=== PATIENT | female | born 1935 | race Caucasian/White ===

== ENCOUNTER 2019-03-30 10:25 | Outpatient (CLI) | payer MEDICARE, SELFPAY ==
--- NOTE | ~2019-03-30 | XR_ITS ---
EXAMINATION:[id number] DATE: 03/30/2019 11:08 INDICATION: Neck pain TECHNIQUE: AP, lateral, and odontoid views of the cervical spine are provided. COMPARISON: CT, 02/13/2018 FINDINGS: There are 2 mm of unchanged anterolisthesis of C4 on C5 and C7 on T1. There are 3 mm of sta ble retrolisthesis of C5 on C6. There is severe loss of intervertebral disc space height at C5-6 and C6-7. No fracture is identified. The odontoid appears intact with chronic erosions identified in the dens. The vertebral body heights are normal. 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 The prevertebral soft tissues are normal. IMPRESSION: 1. Severe cervical spondylosis without acute findings or significant interval change. Reviewed, dictated and finalized at location A. [employer] IMPRESSION: 1. Severe cervical spondylosis without acute findings or significant interval christopher valero
== END 2019-03-30 10:26 | disposition home or self-care (01) ==
DX: M54.2 Cervicalgia (principal)
CPT/HCPCS: 72040

== ENCOUNTER 2019-07-26 15:33 | Outpatient (CLI) | payer MEDICARE, SELFPAY ==
[2019-07-26 16:33] LABS: Basophils Absolute Auto 0.03 K/mm3 (0.00-0.10); Basophils Percent Auto 0.3 % (0.0-1.0); Eosinophils Absolute Auto 0.06 K/mm3 (0.02-0.50); Eosinophils Percent Auto 0.6 % (1.0-6.0); Hematocrit 33.8 % (35.0-42.0); Hemoglobin 11.7 g/dL (11.7-13.8); Immature Granulocyte Absolute 0.04 K/mm3 (0.00-0.00); Immature Granulocyte Percent A 0.4 % (0.0-0.0); Lymphocytes Absolute Auto 1.74 K/mm3 (1.10-4.50); Lymphocytes Percent Auto 18.3 % (18.0-42.0); Mean Corpuscular HGB Conc 34.6 g/dL (32.0-36.0); Mean Corpuscular Hemoglobin 31.9 pg (27.0-31.0); Mean Corpuscular Volume 92.1 fL (78.0-102.0); Mean Platelet Volume 9.2 fl (9.2-11.8); Monocytes Absolute Auto 0.85 K/mm3 (0.10-0.90); Monocytes Percent Auto 8.9 % (2.0-11.0); Neutrophils Absolute Auto 6.8 K/mm3 (1.7-7.2); Neutrophils Percent Auto 71.5 % (50.0-70.0); Platelet Count Result 257 K/mm3 (150-420); Red Blood Count 3.67 M/mm3 (4.20-5.40); Red Cell Distribution Width 12.7 % (11.6-14.4); Reticulocyte Hemoglobin Conten 36.6 pg (28.0-35.0); Reticulocyte Percent 2.17 % (0.50-1.50); Reticulocytes Absolute 0.08 M/mm3 (0.02-0.1); White Blood Count 9.5 K/mm3 (4.8-10.8)
[2019-07-26 17:03] LABS: Ferritin 81 ng/mL (8-252); Iron 86 ug/dL (50-170); Percent Iron Saturation 24 % (12-57)
[2019-07-26 17:31] LABS: Erythrocyte Sedimentation Rate 14 mm/hr (0-20)
[2019-07-26 17:33] LABS: CRP < 0.2 mg/dL (0.0-0.9)
[2019-07-26 17:39] LABS: Hemoglobin A1C 6.4 % (<5.7)
[2019-07-28 17:32] LABS: Red Blood Cell Folate 852 ng/mL RBC (>280)
[2019-07-28 22:34] LABS: Albumin 3.9 g/dL (3.8-4.8); Alpha 1 Globulin 0.2 g/dL (0.2-0.3); Alpha 2 Globulin 0.7 g/dL (0.5-0.9); Beta 1 Globulin 0.4 g/dL (0.4-0.6); Gamma Globulin 0.6 g/dL (0.8-1.7); Interpretation Consistent with; Protein, Total 6.2 g/dL (6.1-8.1)
[2019-08-01 21:16] LABS: Creatinine, Random Urine 75 mg/dL (20-275); Total Protein/Creatinine Ratio 227 mg/g creat (21-161)
== END 2019-07-26 15:34 | disposition home or self-care (01) ==
LOC: CHSLAB 15:35
PROVIDERS: PCP Internal Medicine; Visit Provider Internal Medicine
DX: D64.9 Anemia, unspecified (principal); R73.01 Impaired fasting glucose; N18.2 Chronic kidney disease, stage 2 (mild); R53.83 Other fatigue
CPT/HCPCS: 36415; 82570; 82728; 82747; 83036; 83540; 83550; 84155; 84156; 84165; 84166; 85025; 85046; 85652; 86038; 86039; 86140; 86334

== ENCOUNTER 2019-09-16 13:06 | Outpatient (CLI) | payer MEDICARE, SELFPAY | END 2019-09-16 13:07 | disposition home or self-care (01) | LOC: CHSIMG 13:08 | PROVIDERS: PCP Internal Medicine; Visit Provider Specialist | DX: R06.02 Shortness of breath (principal) | CPT/HCPCS: 93306 ==

== ENCOUNTER 2019-09-20 07:32 | Outpatient (CLI) | payer MEDICARE, SELFPAY ==
--- NOTE | 2019-09-20 09:30 | EST_ITS ---
Patient Info Name: Nelly Elliott Age: 84 years : 1935 Gender: Female Ht: 60 in Wt: 159 lbs BSA: 1.78 m2 HR: 52 bpm BP: 154 / 62 mmHg Heart Rhythm: Sinus Rhythm Technical Quality: Excellent Exam Date: 09/20/2019 9:41 AM Exam Location: [facility], [place] Patient Status: Outpatient Admit Date: 09/20/2019 Staff Ordering Physician: Josesito Chacon M.D. Attending Provider: Josesito Chacon M.D. Referring Physician: Josesito Chacon MD; Exercise Technologist: Britta Treadwell CRT Exercise Physician: Palma Desir CEP Exam Type: CA stress serge w NM Study Info Indications Dyspnea - A nuclear stress test was performed. History/Risk Factors Hypertension: Yes Dyslipidemia: Yes Congenital Heart Disease (CHD): No Peripheral Arterial Disease (PAD): No Myocardial Infarction ([place]): No Chronic Lung Disease: No Obesity: No Renal Disease: No Coronary Artery Disease (CAD) No Congestive Heart Failure (CHF): No Cardiomyopathy/LV Systolic Dysfunction: No Diabetes Mellitus: No COPD: No Tobacco Use: Never Cerebrovascular Disease: No Family History: Diabetes Mellitus, Coronary Artery Disease Deep Vein Thrombosis (DVT): None Dialysis: None History/Risk Factors Hypertension. Dyslipidemia. Syncope. Frailty Scale (CSHA): 3: Managing Well Cardiac Arrest: No Summary 1. 1. Negative lexiscan stress test for ischemic ST changes by ECG criteria. 2. 2. Baseline hypertension. 3. 3. Nuclear scan to follow and will be reported separately. Please correlate with it. Protocol: LEXISCAN Stress ECG Details Stage: REST Duration (min): 1 min : 14 sec HR (bpm): 50 SBP (mmHg): 154 DBP (mmHg): 62 Stage: REST Duration (min): 2 min : 46 sec HR (bpm): 54 SBP (mmHg): 154 DBP (mmHg): 62 Stage: STAGE 1 Duration (min): 0 min : 12 sec HR (bpm): 54 SBP (mmHg): 154 DBP (mmHg): 62 Stage: RECOVERY Duration (min): 0 min : 47 sec HR (bpm): 82 SBP (mmHg): 154 DBP (mmHg): 62 Stage: RECOVERY Duration (min): 1 min : 47 sec HR (bpm): 83 SBP (mmHg): 154 DBP (mmHg): 62 Stage: RECOVERY Duration (min): 2 min : 47 sec HR (bpm): 77 SBP (mmHg): 164 DBP (mmHg): 63 Stage: RECOVERY Duration (min): 3 min : 47 sec HR (bpm): 78 SBP (mmHg): 164 DBP (mmHg): 65 Stage: RECOVERY Duration (min): 4 min : 47 sec HR (bpm): 75 SBP (mmHg): 164 DBP (mmHg): 65 Stage: RECOVERY Duration (min): 5 min : 47 sec HR (bpm): 80 SBP (mmHg): 165 DBP (mmHg): 68 Stage: RECOVERY Duration (min): 6 min : 0 sec HR (bpm): 84 SBP (mmHg): 165 DBP (mmHg): 68 Rest HR: 54 bpm Peak HR: 88 bpm Rest Sys BP: 154 mmHg Peak Sys BP: 166 mmHg Max Pred HR: 138 bpm % Max Pred HR: 64 % Target HR: 117 bpm Max RPP: 14,608 bpm*mmHg Termination Reason: Completion of Protocol Cardiac Symptoms: Dyspnea Total Time: 0 min : 12 sec Rest Pérez BP: 62 mmHg
== END 2019-09-20 07:33 | disposition home or self-care (01) ==
PROVIDERS: PCP Internal Medicine; Visit Provider Specialist
DX: R06.02 Shortness of breath (principal)
CPT/HCPCS: 78452; 93017; A9502; J2785

== ENCOUNTER 2019-10-05 09:20 | Outpatient (CLI) | payer MEDICARE, SELFPAY ==
[2019-10-05 09:30] LABS: Base Excess ABG -3.6 mmol/L (0-2); HCO3 ABG 20.2 mmol/L (23-29); Oxygen Saturation ABG 96.8 % (95-97); Oxyhemoglobin 96.2 % (94-100); PCO2 ABG 32.8 mmHg (35-45); PO2 ABG 87.8 mmHg (75-85); Total Hemoglobin 12.5 g/dL; pH ABG 7.41 (7.35-7.45)
[2019-10-05 09:32] LABS: Device ROOM AIR; Modified Allen's Test Pass; Site Drawn RIGHT RADIAL
== END 2019-10-05 09:21 | disposition home or self-care (01) ==
LOC: CHSLAB 09:21
PROVIDERS: PCP Internal Medicine; Visit Provider Specialist
DX: R06.00 Dyspnea, unspecified (principal)
CPT/HCPCS: 36600; 82805

== ENCOUNTER 2019-10-06 08:37 | Outpatient (CLI) | payer MEDICARE, SELFPAY ==
--- NOTE | 2019-10-07 09:37 | WPDPFTINT ---
PFT Interpretation PFT Interpretation: DOS: [10/06/2019 ] REQUESTING: Dr. Chacon/ Dr. Cazares REASON FOR TESTING: dyspnea PULMONARY FUNCTION TESTS Spirometry: FEV1 101% normal. FVC normal. FEV1% is normal. No change with bronchodilator. Lung volumes: TLC 96% normal. RV 95% normal. No air trapping. Airway resistance is increased 384%. Diffusion: DLCO mildly decreased 70%. Flow volume loop: normal IMPRESSION: Normal spirometry and lung volumes with mild decrease in diffusion which appears to be the only abnormality. There is no change with bronchodilator. Isolated decreased diffusion can be seen in anemia, early ILD, collagen vascular disease with pulmonary vascular involvement, chronic thromboembolic disease and other conditions. Clinical correlation is recommended. Mercy Benton MD
== END 2019-10-06 08:38 | disposition home or self-care (01) ==
LOC: CHSCARD 08:40
PROVIDERS: PCP Internal Medicine; Visit Provider Specialist
DX: R06.00 Dyspnea, unspecified (principal)
CPT/HCPCS: 94060; 94726; 94729

== ENCOUNTER 2019-11-18 09:59 | Outpatient (CLI) | payer MEDICARE, SELFPAY ==
[2019-11-18 10:16] LABS: Basophils Absolute Auto 0.04 K/mm3 (0.00-0.10); Basophils Percent Auto 0.7 % (0.0-1.0); Eosinophils Absolute Auto 0.13 K/mm3 (0.02-0.50); Eosinophils Percent Auto 2.2 % (1.0-6.0); Hematocrit 35.4 % (35.0-42.0); Hemoglobin 11.6 g/dL (11.7-13.8); Immature Granulocyte Absolute 0.03 K/mm3 (0.00-0.00); Immature Granulocyte Percent A 0.5 % (0.0-0.0); Lymphocytes Absolute Auto 1.38 K/mm3 (1.10-4.50); Lymphocytes Percent Auto 23.4 % (18.0-42.0); Mean Corpuscular HGB Conc 32.8 g/dL (32.0-36.0); Mean Corpuscular Hemoglobin 31.5 pg (27.0-31.0); Mean Corpuscular Volume 96.2 fL (78.0-102.0); Mean Platelet Volume 8.7 fl (9.2-11.8); Monocytes Absolute Auto 0.62 K/mm3 (0.10-0.90); Monocytes Percent Auto 10.5 % (2.0-11.0); Neutrophils Absolute Auto 3.7 K/mm3 (1.7-7.2); Neutrophils Percent Auto 62.7 % (50.0-70.0); Platelet Count Result 239 K/mm3 (150-420); Red Blood Count 3.68 M/mm3 (4.20-5.40); Red Cell Distribution Width 13.1 % (11.6-14.4); White Blood Count 5.9 K/mm3 (4.8-10.8)
[2019-11-18 10:26] LABS: Hemoglobin A1C 6.1 % (<5.7)
[2019-11-18 10:54] LABS: Anion Gap 10 mmol/L (8-16); Blood Urea Nitrogen 16 mg/dL (7-18); Calcium 9.5 mg/dL (8.5-10.1); Carbon Dioxide 26 mmol/L (21-32); Chloride 105 mmol/L (98-108); Estimated Glomerular Filt Rate 43; Glucose 117 mg/dL (70-99); Osmolality Calculated 294 mOsm/kg (285-295); Potassium 4.8 mmol/L (3.5-5.1); Sodium 141 mmol/L (136-145)
[2019-11-18 12:31] LABS: Add Urine Microscopic? YES; Appearance Urine Sl Cloudy (Clear); Bilirubin Urine Negative (Negative); Blood Urine Negative (Negative); Color Urine Yellow (Yellow); Glucose Urine UA Negative (Negative); Ketones Urine Negative (Negative); Leukocyte Esterase Ur 1+ (Negative); Nitrate Urine Positive (Negative); Protein Urine Negative (Negative); Urobilinogen Urine 0.2 mg/dL (0.2-1.0)
[2019-11-18 12:37] LABS: RBC Urine 0-2 /hpf (0-2); WBC Urine 21-30 /hpf (0-3)
[2019-11-18 12:38] LABS: Bacteria Urine 1+ /hpf; Squamous Epithelial Cell Urine Few /hpf (Few)
== END 2019-11-18 10:00 | disposition home or self-care (01) ==
LOC: CHSLAB 10:01
PROVIDERS: PCP Internal Medicine; Visit Provider Internal Medicine
DX: R73.01 Impaired fasting glucose (principal); I12.9 Hypertensive chronic kidney disease with stage 1 through stage 4 chronic kidney disease, or unspecified chronic kidney disease; N18.2 Chronic kidney disease, stage 2 (mild); D64.9 Anemia, unspecified
CPT/HCPCS: 36415; 80048; 81001; 83036; 85025

== ENCOUNTER 2019-12-01 13:33 | Outpatient (CLI) | payer MEDICARE, SELFPAY ==
[2019-12-01 14:40] LABS: Vitamin B12 1707 pg/mL (193-986)
[2019-12-01 16:27] LABS: Add Urine Microscopic? YES; Appearance Urine Sl Cloudy (Clear); Bilirubin Urine Negative (Negative); Blood Urine Negative (Negative); Color Urine Yellow (Yellow); Glucose Urine UA Negative (Negative); Ketones Urine Trace (Negative); Leukocyte Esterase Ur 2+ (Negative); Nitrate Urine Negative (Negative); Protein Urine Negative (Negative); Specific Grav Ur 1.025 (1.010-1.020); Urobilinogen Urine 0.2 mg/dL (0.2-1.0)
[2019-12-01 16:33] LABS: Bacteria Urine 1+ /hpf; RBC Urine None seen /hpf (0-2); Squamous Epithelial Cell Urine Few /hpf (Few)
== END 2019-12-01 13:34 | disposition home or self-care (01) ==
LOC: CHSLAB 13:35
PROVIDERS: PCP Internal Medicine; Visit Provider Internal Medicine
DX: N39.0 Urinary tract infection, site not specified (principal); R41.3 Other amnesia
CPT/HCPCS: 36415; 81001; 82607; 87086; 87088; 87147; 87186

== ENCOUNTER 2019-12-09 14:48 | Outpatient (RCR) | payer MEDICARE, SELFPAY ==
--- NOTE | 2019-12-09 15:45 | PTOPEVAL ---
Thank you for referring Nelly Elliott to [facility].? The patient is scheduled to be seen for therapy? __2__x/week for 12 visits. Please review, sign, date and return this plan of care TELMA. I agree with and certify that the following plan of care is medically necessary. Referring Physician Date Admitting Provider: Attending Provider: Clarice Cazares MD Referring Provider: *PT Outpatient Evaluation Start: 12/09/19 15:06 Freq: Status: Active Protocol: Document 12/09/19 15:07 ROSI (Rec: 12/09/19 15:40 ROSI [email or web address]) Therapy Assessment Status Assessment Status Assessment Status Evaluation Evaluation Information Problem Diagnosis chronic neck pain Onset 03/20/19 Subjective Information Pt. reports that she has had Query Text:As Reported By Patient/ on/off neck pain since [facility] . She reports that all pain is located on the right side of the neck and shoot into the back of her head. She reports that pain is increased in the neck with any type of activity. She states that her sleep is limited due to pain. She states that that a full day of activity including housework and go into the community will cause her pain to increase and put her down for awhile. She reports her goal is to decrease her pain. Diagnostic Tests X-Rays For This Problem Yes Prior Level of Function Activity Level (Last 3 Months) Occupation retired Hand Dominance Right Activity of Daily Living Ability Independent Indoor/Home Mobility Independent Community Mobility Independent Stairs Ability Independent Functional Cognition (Planning, Shopping Independent , Taking Medications) Cooking Yes Cleaning Yes Laundry Yes Shopping Yes Driving Yes Pain Assessment Pain Scale Pain Scale Used Numeric (1 - 10) Self Report Pain Assessment Neck Reported Pain Level 7 Pain Frequency Chronic Lowest Pain Intensity 7 Greatest Pain Intensity 10 Pain Aggravating Factors Exercise/Activity,Lifting, Prolonged Position Pain Score Pain Score 7: Self Report Interve
== END 2019-12-29 09:25 | disposition home or self-care (01) ==
LOC: CHSPT 14:48
PROVIDERS: PCP Internal Medicine; Visit Provider Internal Medicine
DX: M54.2 Cervicalgia (principal)
CPT/HCPCS: 97014; 97110; 97140; 97161; G0283

== ENCOUNTER 2020-05-15 16:05 | Outpatient (CLI) | payer MEDICARE, SELFPAY ==
--- NOTE | ~2020-05-15 | CT_ITS ---
EXAMINATION: CTA chest PE protocol DATE: 05/15/2020 18:20 INDICATION: Shortness of breath. TECHNIQUE: Computed tomography angiography (CTA) of the chest was performed with 100 mL Omnipaque-350 intravenous contrast timed to evaluate the pulmonary arteries. Coronal maximum intensity projection 3D-reconstructions were created by the technologist. Automated exposure control and iterative reconst ruction technique were employed. The dose-length product was 573.72 mGy-cm. COMPARISON: None. FINDINGS: The lung volumes are small. There is mild atelectasis bilaterally with a dependent predomin ance. No pleural effusion. The heart size is normal. There are coronary artery calcifications. No per icardial effusion. There is no pulmonary embolus. There is thoracolumbar levoscoliosis. There is juan david re cervical, thoracic, and lumbar spondylosis. IMPRESSION: 1. No pulmonary embolus. Sensitivity is mildly decreased by motion artifact. Reviewed, dictated and finalized at location A.
--- NOTE | ~2020-05-15 | XR_ITS ---
EXAMINATION: XR_CERV2-3V_CR DATE: 05/15/2020 16:52 INDICATION: Chronic posterior neck pain. TECHNIQUE: 3 views of cervical spine on 5 radiographs were obtained. COMPARISON: Cervical spine radiographs 03/30/2019 FINDINGS: There is 2 mm retrolisthesis of C5 on C6 and C6 on C7. Vertebral body heights are normal. T here is mildly decreased disc height at C4-C5 and severely decreased disc height at C5-C6 and C6-C7. There is multilevel severe facet joint osteoarthritis. There is mild central canal stenosis at C5-C6 and C6-C7. No prevertebral soft tissue swelling. IMPRESSION: 1. Severe cervical spondylosis. Reviewed, dictated and finalized at location A.
[2020-05-15 16:30] LABS: Basophils Absolute Auto 0.02 K/mm3 (0.00-0.10); Basophils Percent Auto 0.3 % (0.0-1.0); Eosinophils Absolute Auto 0.07 K/mm3 (0.02-0.50); Hemoglobin 12.1 g/dL (11.7-13.8); Immature Granulocyte Absolute 0.03 K/mm3 (0.00-0.00); Immature Granulocyte Percent A 0.4 % (0.0-0.0); Immature Reticulocyte Fraction 8.9 % (2.0-16.52); Lymphocytes Absolute Auto 1.39 K/mm3 (1.10-4.50); Lymphocytes Percent Auto 19.3 % (18.0-42.0); Mean Corpuscular HGB Conc 33.6 g/dL (32.0-36.0); Mean Corpuscular Hemoglobin 31.8 pg (27.0-31.0); Mean Corpuscular Volume 94.5 fL (78.0-102.0); Mean Platelet Volume 8.8 fl (9.2-11.8); Monocytes Percent Auto 8.3 % (2.0-11.0); Neutrophils Absolute Auto 5.1 K/mm3 (1.7-7.2); Neutrophils Percent Auto 70.7 % (50.0-70.0); Platelet Count Result 266 K/mm3 (150-420); Red Blood Count 3.81 M/mm3 (4.20-5.40); Red Cell Distribution Width 12.8 % (11.6-14.4); Reticulocyte Hemoglobin Conten 35.9 pg (28.0-35.0); Reticulocyte Percent 2.17 % (0.50-1.50); Reticulocytes Absolute 0.08 M/mm3 (0.02-0.1); White Blood Count 7.2 K/mm3 (4.8-10.8)
[2020-05-15 16:33] LABS: Add Urine Microscopic? YES; Appearance Urine Clear (Clear); Bilirubin Urine Negative (Negative); Blood Urine Negative (Negative); Color Urine Yellow (Yellow); Glucose Urine UA Negative (Negative); Ketones Urine Negative (Negative); Leukocyte Esterase Ur 1+ (Negative); Nitrate Urine Negative (Negative); Protein Urine Negative (Negative); Urobilinogen Urine 0.2 mg/dL (0.2-1.0); pH Urine 5.5 (5.0-8.0)
[2020-05-15 16:39] LABS: Bacteria Urine Trace /hpf; Hemoglobin A1C 6.4 % (<5.7); RBC Urine 0-2 /hpf (0-2); Squamous Epithelial Cell Urine Few /hpf (Few)
[2020-05-15 16:45] LABS: D Dimer 0.62 mg/L (0.19-0.50)
[2020-05-15 16:46] LABS: BNP 50 pg/mL (0-100)
[2020-05-15 17:31] LABS: Erythrocyte Sedimentation Rate 28 mm/hr (0-20)
[2020-05-15 17:56] LABS: Alanine Aminotransferase 35 U/L (14-59); Albumin Level 3.9 g/dL (3.4-5.0); Alkaline Phosphatase 96 U/L (46-116); Anion Gap 11 mmol/L (8-16); Bilirubin,Total 0.5 mg/dL (0.00-1.00); Blood Urea Nitrogen 21 mg/dL (7-18); Calcium 9.2 mg/dL (8.5-10.1); Carbon Dioxide 25 mmol/L (21-32); Chloride 101 mmol/L (98-108); Cholesterol 194 mg/dL (0-200); Creatine Kinase 50 U/L (26-192); Estimated Glomerular Filt Rate 41; HDL Direct 47 mg/dL (40-60); Potassium 4.2 mmol/L (3.5-5.1); Sodium 137 mmol/L (136-145); Total Protein 6.9 g/dL (6.4-8.2); Vitamin B12 1674 pg/mL (193-986)
[2020-05-15 18:22] LABS: Free T3 2.24 pg/mL (2.18-3.98); Free T4 Free Thyroxine 1.02 ng/dL (0.76-1.46); Glucose 182 mg/dL (70-99); Osmolality Calculated 292 mOsm/kg (285-295)
[2020-05-15 18:46] LABS: Aspartate Amino Transferase < 10 U/L (15-37)
[2020-05-15 19:00] LABS: CRP < 0.2 mg/dL (0.0-0.9)
[2020-05-15 19:01] LABS: LDL Cholesterol Calculated 33 mg/dL (<130); Triglycerides 568 mg/dL (0-150)
[2020-05-15 19:04] LABS: LDL Cholesterol Direct 91 mg/dL (0-130)
[2020-05-18 10:39] LABS: Vitamin D 25 Hydroxy 32 ng/mL (30-100)
== END 2020-05-15 16:06 | disposition home or self-care (01) ==
PROVIDERS: PCP Internal Medicine; Visit Provider Internal Medicine
DX: R06.00 Dyspnea, unspecified (principal); R79.1 Abnormal coagulation profile; E78.2 Mixed hyperlipidemia; I12.9 Hypertensive chronic kidney disease with stage 1 through stage 4 chronic kidney disease, or unspecified chronic kidney disease; N18.2 Chronic kidney disease, stage 2 (mild); D64.9 Anemia, unspecified; R73.01 Impaired fasting glucose; R53.82 Chronic fatigue, unspecified; M81.0 Age-related osteoporosis without current pathological fracture; M54.2 Cervicalgia
CPT/HCPCS: 36415; 71275; 72040; 80053; 80061; 81001; 82306; 82550; 82607; 83036; 83721; 83880; 84439; 84443; 84481; 85025; 85046; 85380; 85652; 86140; Q9967

== ENCOUNTER 2020-05-23 13:36 | Outpatient (CLI) | payer MEDICARE, SELFPAY ==
[2020-05-23 15:09] LABS: Anion Gap 9 mmol/L (8-16); Blood Urea Nitrogen 22 mg/dL (7-18); Calcium 9.5 mg/dL (8.5-10.1); Carbon Dioxide 27 mmol/L (21-32); Chloride 100 mmol/L (98-108); Estimated Glomerular Filt Rate 37; Glucose 153 mg/dL (70-99); Osmolality Calculated 288 mOsm/kg (285-295); Potassium 4.1 mmol/L (3.5-5.1); Sodium 136 mmol/L (136-145)
== END 2020-05-23 13:37 | disposition home or self-care (01) ==
LOC: CHSLAB 13:39
PROVIDERS: PCP Internal Medicine; Visit Provider Internal Medicine
DX: R79.89 Other specified abnormal findings of blood chemistry (principal)
CPT/HCPCS: 36415; 80048

== ENCOUNTER 2020-06-02 12:57 | Emergency (ER) | payer MEDICARE, SELFPAY ==
--- NOTE | ~2020-06-02 | XR_ITS ---
EXAMINATION: XR humerus RT DATE: 06/02/2020 13:54 INDICATION: Right upper arm pain. Injury. TECHNIQUE: 2 views of right humerus were obtained. COMPARISON: None. FINDINGS: Bone alignment is normal. No fracture. There is mild osteoarthritis of glenohumeral joint a nd moderate osteoarthritis of acromioclavicular joint. IMPRESSION: 1. Polyarticular osteoarthritis. Reviewed, dictated and finalized at location A.
--- NOTE | ~2020-06-02 | XR_ITS ---
EXAMINATION: XR shoulder RT min 2V DATE: 06/02/2020 13:54 INDICATION: Right shoulder pain. TECHNIQUE: 4 views of right shoulder were obtained. COMPARISON: None. FINDINGS: Bone alignment is normal. No fracture. There is mild osteoarthritis of glenohumeral joint a nd moderate osteoarthritis of acromioclavicular joint. IMPRESSION: 1. Polyarticular osteoarthritis. Reviewed, dictated and finalized at location A.
--- NOTE | ~2020-06-02 | XR_ITS ---
EXAMINATION: XR elbow RT 2V EXAM DATE: 06/02/2020 13:53 INDICATION: Fall today, right elbow pain. Initial encounter. TECHNIQUE: Frontal and lateral projections of the right elbow. Correlation is made to right humerus exam same date. FINDINGS: There are no acute right elbow fractures or dislocations identified. There is no subcutane ous gas. The soft tissue is unremarkable. There are no radiopaque foreign bodies. There is mild p rimary osteoarthritis. IMPRESSION: 1. XR elbow RT 2V exam without acute osseous findings. Reviewed, dictated and finalized at location A.
--- NOTE | 2020-06-02 13:05 | ED.FALL ---
HPI - Fall General Chief Complaint: Fall Stated Complaint: injury to right arm and face Time Seen by Provider: 06/02/20 13:05 Source: patient and RN notes reviewed Mode of arrival: wheelchair Limitations: no limitations History of Present Illness HPI Narrative: Patient was going down the steps outside of a local business. She tripped and did not fall completely just fell against the building and then slid down to the ground. She denies hitting her head. She thinks she may have scraped her face when she went down on the concrete. There was no loss of consciousness. complaint: fall Onset (ago): minute(s) (20) Fall from: standing Fall witnessed: yes, by family Place fall occurred: other ([employer]) Loss of consciousness: none Prolonged down time: no Symptoms prior to fall: dizziness Location of injury - extremities: Right: shoulder, arm and elbow Severity: moderate Quality: dull and aching Associated symptoms (after fall): denies Related Data Home Medications Medication Instructions Recorded Confirmed amlodipine 5 mg PO DAILY 06/02/20 06/02/20 atorvastatin 40 mg PO DAILY 06/02/20 06/02/20 gabapentin 300 mg PO TID 06/02/20 06/02/20 hydrochlorothiazide See Rx Instructions .ROUTE .COMPLEX 06/02/20 06/02/20 latanoprost See Rx Instructions .ROUTE .COMPLEX 06/02/20 06/02/20 lorazepam 1 mg PO BID 06/02/20 06/02/20 losartan 50 mg PO DAILY 06/02/20 06/02/20 metoprolol succinate 50 mg PO DAILY 06/02/20 06/02/20 Allergies Allergy/AdvReac Type Severity Reaction Status Date / Time ciprofloxacin Allergy Intermediate hallucinati Verified 01/13/16 12:21 ons pregabalin Allergy Intermediate seere Verified 01/13/16 12:21 confusion metformin Allergy Mild stomach/gi Verified 01/13/16 12:21 upset hydroxyzine Allergy Unknown hypersensit Verified 01/13/16 12:21 ivity Review of Systems Review of Systems: All systems reviewed & are unremarkable except as noted in HPI and below PMFSH Past Medical History Medical History (Updated 06/02/20 @ 14:19 by Tani Duckworth MD) GERD (gastroesophageal reflux disease) Glaucoma Hyperlipidemia Hypertension Osteoarthritis Surgical History Surgical History (Updated 06/02/20 @ 14:17 by Tani Duckworth MD) H/O bilateral oophorectomy H/O hysterectomy for benign disease H/O plastic surgery nose Previous back surgery Social History Social History (Updated 06/02/20 @ 14:17 by Tani Duckworth MD) Smoking status: Former smoker Alcohol intake: former Alcohol use details: occasional alcohol in the past Substance use: never Exam Const: General: healthy appearing and no acute distress Nutritional Appearance: well nourished Orientation/consciousness: patient oriented x3 HENMT: Head: normal to inspection Ears: external ears normal Face and sinus: normal facial exam Mouth: Yes moist mucous membranes Eyes: Conjunctivae: conjunctivae normal Pupils: Equal, round and reactive pupils present EOM: EOMs intact bilaterally Neck: Neck: normal visual inspection Resp: Effort & Inspection: normal respiratory effort Auscultation: clear to auscultation bilaterally Cardio: Rate: regular rate Rhythm: regular rhythm Heart sounds: no murmurs GI: GI Palp: Yes Soft to palpation and No Tenderness to palpation present (GI) Auscultation: normal bowel sounds Back/Spine/Pelvis: Cervical Spine: cervical muscular tenderness (not new) Thoracic/Lumbar Spine: pain with thoraco-lumbar ROM (not new) Skin: General skin exam: normal color Rashes: no rashes Wounds: no wounds Neuro: General: patient oriented x3, moves all extremities and no focal motor deficits Speech: normal speech Extrem: General: normal exam except as noted Right upper extremity: normal capillary refill, shoulder/upper arm tenderness of the proximal humerus and of the mid-shaft humerus and elbow/forearm tenderness of the distal humerus, of the olecranon, of the mid-shaft forearm and of the radial head
[2020-06-02 13:14] VITALS: BP 179/73; PULSE 65; RESP 18; TEMP 36.6; O2SAT 97
[2020-06-02] MEDS: KETOROLAC 30 MG/ML VIAL (*BKC) IM (14:22)
[2020-06-02 14:23] VITALS: BP 159/63; PULSE 54; RESP 16; O2SAT 97
== END 2020-06-02 14:41 | disposition home or self-care (01) ==
PROVIDERS: Emergency Provider Emergency Medicine; PCP Internal Medicine
DX: S40.011A Contusion of right shoulder, initial encounter (principal); S50.01XA Contusion of right elbow, initial encounter; W01.0XXA Fall on same level from slipping, tripping and stumbling without subsequent striking against object, initial encounter
CPT/HCPCS: 73030; 73060; 73070; 96372; 99283; 99284; J1885

== ENCOUNTER 2020-06-23 09:53 | Outpatient (CLI) | payer MEDICARE, SELFPAY ==
[2020-06-23 10:39] LABS: Anion Gap 9 mmol/L (8-16); Blood Urea Nitrogen 13 mg/dL (7-18); Calcium 9.7 mg/dL (8.5-10.1); Carbon Dioxide 28 mmol/L (21-32); Chloride 104 mmol/L (98-108); Cholesterol 201 mg/dL (0-200); Estimated Glomerular Filt Rate 47; Glucose 136 mg/dL (70-99); HDL Direct 51 mg/dL (40-60); LDL Cholesterol Calculated 72 mg/dL (<130); Osmolality Calculated 294 mOsm/kg (285-295); Potassium 4.4 mmol/L (3.5-5.1); Sodium 141 mmol/L (136-145); Triglycerides 391 mg/dL (0-150)
== END 2020-06-23 09:54 | disposition home or self-care (01) ==
LOC: CHSLAB 09:56
PROVIDERS: PCP Internal Medicine; Visit Provider Internal Medicine
DX: N18.30 Chronic kidney disease, stage 3 unspecified (principal); E78.2 Mixed hyperlipidemia
CPT/HCPCS: 36415; 80048; 80061

== ENCOUNTER 2020-07-18 13:12 | Outpatient (CLI) | payer MEDICARE, SELFPAY | END 2020-07-18 13:13 | disposition home or self-care (01) | LOC: CHSIMG 13:13 | PROVIDERS: PCP Internal Medicine; Visit Provider Internal Medicine | DX: R06.00 Dyspnea, unspecified (principal); R01.1 Cardiac murmur, unspecified | CPT/HCPCS: 93306 ==

== ENCOUNTER 2020-09-25 16:28 | Emergency (ER) | payer MEDICARE, SELFPAY ==
--- NOTE | ~2020-09-25 | CT_ITS ---
EXAMINATION: CT brain wo con DATE: 09/25/2020 18:51 INDICATION: Shooting pain at the right side of the head and neck TECHNIQUE: Computed tomography (CT) of the head was performed without intravenous contrast. Sagittal and coronal reconstructions were performed. The mA was adjusted according to patient size. Iterative reconstruction technique was employed. The dose-length product was 681.00 mGy-cm. COMPARISON: head CT dated 02/13/2018 FINDINGS: No acute intracranial hemorrhage, acute infarction or abnormal extra axial fluid collection. Small ol d lacunar infarct versus prominent perivascular space at the inferior left basal ganglia. There is mi ld scattered white matter hypoattenuation consistent with chronic small vessel ischemic disease. Symm etric prominence of the sulci consistent with mild age-appropriate diffuse cerebral volume loss. Vent ricles are normal and symmetric. No mass/mass effect. Changes of bilateral intraocular lens replaceme nt. The orbits, paranasal sinuses and mastoid air cells are normal. Intracranial calcified cerebral a therosclerosis is noted. IMPRESSION: 1. No acute intracranial process. 2. Small old lacunar infarct versus prominent perivascular space at the left basal ganglia. 3. Age-related changes including mild diffuse volume loss and mild scattered white matter hypoattenua tion consistent with chronic small vessel ischemic disease. Reviewed, dictated and finalized at location A. IMPRESSION: 1. No acute intracranial process. 2. Small old lacunar infarct versus prominent perivascular space at the left ba timothy ganglia. 3. Age-related changes including mild diffuse volume loss and mild scattered wh ite matter hypoattenuation consistent with chronic small vessel ischemic diseas e.
--- NOTE | ~2020-09-25 | CT_ITS ---
EXAMINATION: CT cervical spine wo con DATE: 09/25/2020 18:52 INDICATION: Pain at the right side of the head and neck TECHNIQUE: Computed tomography (CT) of the cervical spine was performed without intravenous contrast. Automated exposure control and iterative reconstruction technique were employed. The dose-length pro duct was 681.00 mGy-cm. COMPARISON: 02/13/2018 FINDINGS: Severe osteoarthritis at the atlantoaxial articulation with remodeling of the anterior ring of C1 and chronic erosions about the dens. Unchanged 4 mm anterolisthesis C3 on C4, C4-C5 and T7 on T1, 1 mm r etrolisthesis C6 on C7 and 2 mm retrolisthesis C5 on C6. Vertebral body heights are normal. No acute fracture. Severe disc height loss with prominent degenerative endplate changes at C5-C6 and C6-C7. Mi ld disc height loss at C4-C5 and C7-T1. Disc bulges and disc osteophyte complexes most prominent at C 5-C6 and C6-C7 where there is moderate central canal stenosis. Severe multilevel bilateral cervical f acet and uncovertebral osteoarthritis contributing to bilateral multilevel moderate neural foraminal stenosis. Multinodular goiter. Mild right apical pleural-parenchymal scarring. IMPRESSION: 1. Stable appearance of severe cervical spondylosis with no acute osseous abnormality. Reviewed, dictated and finalized at location A. IMPRESSION: 1. Stable appearance of severe cervical spondylosis with no acute osseous abnor mality.
[2020-09-25 17:47] VITALS: BP 172/63; PULSE 61; RESP 16; TEMP 36.7; O2SAT 99
--- NOTE | 2020-09-25 17:58 | ED.HA ---
HPI - Headache General Chief Complaint: Headache Stated Complaint: pains in head Time Seen by Provider: 09/25/20 18:02 Source: patient Mode of arrival: wheelchair Limitations: no limitations History of Present Illness HPI Narrative: 85-year-old woman with a history of cervical spondylosis for which she is getting epidural injections comes in today complaining of intermittent severe right-sided posterior neck pain that radiates to the top of her posterior scalp. Pain is elicited with neck movement. She states that initially the pain was very severe and started after she lifted a pale this morning. She was advised by her doctor not to do any lifting. She denies any photophobia, nausea, vomiting, fever, numbness or tingling, lower extremity weakness, falls or injuries, arm numbness or weakness, and incontinence. MD elicited complaint: headache Onset (ago): hour(s) (10) Onset description: suddenly and other (While lifting a pale) Location: right, occipital and neck Severity: severe Quality & Timing: sharp Exacerbating factors: movement of head/neck Relieving factors: rest (Position) Context: occurred with exertion/activity Associated symptoms: none Treatments prior to arrival: acetaminophen Related Data Home Medications Medication Instructions Recorded Confirmed amlodipine 5 mg PO DAILY 06/02/20 09/25/20 atorvastatin 40 mg PO DAILY 06/02/20 09/25/20 gabapentin 300 mg PO BID 06/02/20 09/25/20 latanoprost See Rx Instructions .ROUTE .COMPLEX 06/02/20 09/25/20 lorazepam 1 mg PO BID 06/02/20 09/25/20 losartan 50 mg PO DAILY 06/02/20 09/25/20 metoprolol succinate 50 mg PO DAILY 06/02/20 09/25/20 celecoxib 200 mg PO DAILY 09/25/20 09/25/20 Allergies Allergy/AdvReac Type Severity Reaction Status Date / Time ciprofloxacin Allergy Intermediate hallucinati Verified 01/13/16 12:21 ons pregabalin Allergy Intermediate seere Verified 01/13/16 12:21 confusion metformin Allergy Mild stomach/gi Verified 01/13/16 12:21 upset hydroxyzine Allergy Unknown hypersensit Verified 01/13/16 12:21 ivity Review of Systems Review of Systems: All systems reviewed & are unremarkable except as noted in HPI and below Constitutional: Constitutional: Denies chills, Denies fever(s) and Denies weakness Eyes: Eyes: Denies change in vision and Denies photophobia ENT: Denies nasal congestion and Denies sore throat Cardiovascular: Cardiovascular: Denies chest pain and Denies radiating jaw, neck or arm pain Respiratory: Respiratory: Denies cough and Denies dyspnea Gastrointestinal: Gastrointestinal: Denies abdominal pain, Denies nausea and Denies vomiting Genitourinary: Genitourinary: Denies hematuria, Denies nocturia and Denies dysuria Musculoskeletal: Musculoskeletal: Reports as per HPI, Denies back pain, Denies arthralgias and Denies joint swelling Integumentary/Breasts: Skin/Breast: Denies pruritus, Denies erythema and Denies rash Neurologic: Denies vertigo, Denies dizziness and Denies syncope Hematologic/Lymphatic: Hematologic/Lymphatic: Denies easy bleeding and Denies easy bruising Allergic/Immunologic: Allergic/Immunologic: Denies lip swelling, Denies throat swelling and Denies wheezing PMFSH Past Medical History Medical History GERD (gastroesophageal reflux disease) Glaucoma Hyperlipidemia Hypertension Osteoarthritis Surgical History Surgical History H/O bilateral oophorectomy H/O hysterectomy for benign disease H/O plastic surgery nose Previous back surgery Social History Social History Smoking status: Former smoker Alcohol intake: former Alcohol use details: occasional alcohol in the past Substance use: never Exam Const: General: healthy appearing and alert Orientation/consciousness: patient oriented x3 Limitations: no limit
--- NOTE | 2020-09-25 19:11 | PC.NURSE ---
report to codi mccall
[2020-09-25 19:44] VITALS: BP 140/59; PULSE 62; RESP 20; TEMP 36.7; O2SAT 98
== END 2020-09-25 19:51 | disposition home or self-care (01) ==
PROVIDERS: Emergency Provider Emergency Medicine; PCP Internal Medicine
DX: M54.12 Radiculopathy, cervical region (principal); K21.9 Gastro-esophageal reflux disease without esophagitis; E78.5 Hyperlipidemia, unspecified; I10 Essential (primary) hypertension; Z87.891 Personal history of nicotine dependence
CPT/HCPCS: 70450; 72125; 99283; 99284

== ENCOUNTER 2020-10-13 09:07 | Emergency (ER) | payer MEDICARE, SELFPAY ==
[2020-10-13 09:10] VITALS: BP 196/91; PULSE 106; RESP 40; TEMP 36.8; O2SAT 99
[2020-10-13] MEDS: LORazepam INJ (*CRX) 2 MG/ML VIAL 1 MG IV PUSH (09:25)
--- NOTE | 2020-10-13 09:26 | ED.GENADULT ---
HPI - General Adult General Chief complaint: Anxiety Stated complaint: Abulance Source: patient and family Mode of arrival: EMS Limitations: no limitations History of Present Illness HPI narrative: Nelly is a 85F with a PMH of GERD, HLD, HTN, OA w/ chronic pain and anxiety that presented to the ED by EMS. She had been up since 0100 this morning with pain. She drank her coffee and had a BM. After having a non bloody BM she had LLQ pain. She became scarred, started panicking and called EMS. She started breathing fast and had tingling in her fingers. (This is how she has felt in the past with panic attacks.) She denies fevers, chills, vomiting, chest pain, lightheadedness, diarrhea, melena and hematochezia. By the time I came in the room her abdominal pain had resolved but she was still anxious. Related Data Home Medications Medication Instructions Recorded Confirmed amlodipine 5 mg PO DAILY 06/02/20 09/25/20 atorvastatin 40 mg PO DAILY 06/02/20 09/25/20 gabapentin 300 mg PO BID 06/02/20 09/25/20 lorazepam 1 mg PO BID 06/02/20 09/25/20 losartan 50 mg PO DAILY 06/02/20 09/25/20 metoprolol succinate 50 mg PO DAILY 06/02/20 09/25/20 celecoxib 200 mg PO DAILY 09/25/20 09/25/20 esomeprazole magnesium [Nexium] 20 mg PO DAILY 10/13/20 10/13/20 Allergies Allergy/AdvReac Type Severity Reaction Status Date / Time ciprofloxacin Allergy Intermediate hallucinati Verified 01/13/16 12:21 ons pregabalin Allergy Intermediate seere Verified 01/13/16 12:21 confusion metformin Allergy Mild stomach/gi Verified 01/13/16 12:21 upset hydroxyzine Allergy Unknown hypersensit Verified 01/13/16 12:21 ivity Review of Systems Constitutional: Constitutional: Reports no additional constitutional complaints Eyes: Eyes: Reports no additional eye complaints ENT: Reports system reviewed and no additional complaints, except as documented Cardiovascular: Cardiovascular: Reports no additional cardiovascular complaints Respiratory: Respiratory: Reports no additional respiratory complaints Gastrointestinal: Gastrointestinal: Reports as per HPI Genitourinary: Genitourinary: Reports no additional female genitourinary complaints Musculoskeletal: Musculoskeletal: Reports no additional musculoskeletal complaints Integumentary/Breasts: Skin/Breast: Reports system reviewed and no additional complaints, except as docu Neurologic: Reports system reviewed and no additional complaints, except as documented Psychiatric: Psychiatric: Reports as per HPI and Reports anxiety Endocrine: Endocrine: Reports no additional endocrine complaints Hematologic/Lymphatic: Hematologic/Lymphatic: Reports no additional hematologic/lymphatic complaints Allergic/Immunologic: Allergic/Immunologic: Reports no additional allergic/immunologic complaints [facility] Past Medical History Medical History GERD (gastroesophageal reflux disease) Glaucoma Hyperlipidemia Hypertension Osteoarthritis Surgical History Surgical History H/O bilateral oophorectomy H/O hysterectomy for benign disease H/O plastic surgery nose Previous back surgery Social History Social History Smoking status: Former smoker Alcohol intake: former Alcohol use details: occasional alcohol in the past Substance use: never Exam Const: General: alert Orientation/consciousness: patient oriented x3 Limitations: No altered mental status Other: mild distress HENMT: Head: normal to inspection Other: atrauamtic Eyes: Conjunctivae: conjunctivae normal Pupils: Equal, round and reactive pupils present Neck: Neck: normal visual inspection Chest: Chest palpation & inspection: normal inspection of the chest Resp: Effort & Inspection: normal respiratory effort Auscultation: clear to auscultation bilaterally Cardio
--- NOTE | 2020-10-13 09:44 | ECG_ITS ---
Measurements Intervals [place] Rate: P: ME: QRS: QRSD: T: QT: QTc: Interpretive Statements SINUS RHYTHM WITH FIRST DEGREE AV BLOCK DELAYED PRECORDIAL R/S TRANSITION CONSIDER INFERIOR INFARCT, AGE INDETERMINATE BORDERLINE ST ABNORMALITY- HIGH LATERAL LEADS BASELINE WANDER- V4 ABNORMAL ECG Electronically Signed On 10-13-2020 13:07:14 CDT by Peter Concepcion D.O.
[2020-10-13] MEDS: LORazepam INJ (*CRX) 2 MG/ML VIAL 0.5 MG IV PUSH (09:50)
[2020-10-13 10:01] LABS: Add Urine Microscopic? YES; Appearance Urine Clear (Clear); Bilirubin Urine Negative (Negative); Blood Urine Negative (Negative); Color Urine Light Yellow (Yellow); Glucose Urine UA Negative (Negative); Ketones Urine Trace (Negative); Leukocyte Esterase Ur Negative (Negative); Nitrate Urine Negative (Negative); Protein Urine Negative (Negative); Urobilinogen Urine 0.2 mg/dL (0.2-1.0); pH Urine 7.5 (5.0-8.0)
[2020-10-13 10:06] LABS: Basophils Absolute Auto 0.03 K/mm3 (0.00-0.10); Basophils Percent Auto 0.4 % (0.0-1.0); Eosinophils Absolute Auto 0.02 K/mm3 (0.02-0.50); Eosinophils Percent Auto 0.2 % (1.0-6.0); Hematocrit 35.6 % (35.0-42.0); Hemoglobin 12.4 g/dL (11.7-13.8); Immature Granulocyte Absolute 0.04 K/mm3 (0.00-0.00); Immature Granulocyte Percent A 0.5 % (0.0-0.0); Lymphocytes Absolute Auto 1.12 K/mm3 (1.10-4.50); Lymphocytes Percent Auto 13.9 % (18.0-42.0); Mean Corpuscular HGB Conc 34.8 g/dL (32.0-36.0); Mean Corpuscular Hemoglobin 31.9 pg (27.0-31.0); Mean Corpuscular Volume 91.5 fL (78.0-102.0); Mean Platelet Volume 8.4 fl (9.2-11.8); Monocytes Absolute Auto 0.53 K/mm3 (0.10-0.90); Monocytes Percent Auto 6.6 % (2.0-11.0); Neutrophils Absolute Auto 6.3 K/mm3 (1.7-7.2); Neutrophils Percent Auto 78.4 % (50.0-70.0); Platelet Count Result 218 K/mm3 (150-420); Red Blood Count 3.89 M/mm3 (4.20-5.40); Red Cell Distribution Width 12.7 % (11.6-14.4); White Blood Count 8.1 K/mm3 (4.8-10.8)
[2020-10-13 10:07] LABS: RBC Urine None seen /hpf (0-2); Squamous Epithelial Cell Urine Rare /hpf (Few); WBC Urine None seen /hpf (0-3)
[2020-10-13 10:08] LABS: Bacteria Urine Trace /hpf
[2020-10-13 10:15] VITALS: PULSE 102; RESP 22
[2020-10-13 10:17] LABS: Prothrombin Time 10.6 Seconds (9.50-12.10)
[2020-10-13 10:24] LABS: Alanine Aminotransferase 30 U/L (14-59); Albumin Level 4.3 g/dL (3.4-5.0); Alkaline Phosphatase 79 U/L (46-116); Anion Gap 18 mmol/L (8-16); Aspartate Amino Transferase 15 U/L (15-37); Bilirubin,Total 0.7 mg/dL (0.00-1.00); Blood Urea Nitrogen 16 mg/dL (7-18); Calcium 9.8 mg/dL (8.5-10.1); Carbon Dioxide 17 mmol/L (21-32); Chloride 103 mmol/L (98-108); Estimated Glomerular Filt Rate 46; Glucose 119 mg/dL (70-99); Lipase 108 U/L (73-393); Osmolality Calculated 288 mOsm/kg (285-295); Potassium 3.8 mmol/L (3.5-5.1); Sodium 138 mmol/L (136-145); Total Protein 7.5 g/dL (6.4-8.2)
[2020-10-13 10:32] LABS: CRP < 0.2 mg/dL (0.0-0.9); Lactic Acid Reflex 2.4 mmol/L (0.4-2.0); Troponin I 7.7 ng/L (0.00-60.4)
[2020-10-13 11:22] VITALS: BP 164/97; PULSE 96; RESP 16; O2SAT 97
[2020-10-13 13:02] LABS: Reflex Lactic Acid Yes or No Add Lactic
== END 2020-10-13 11:15 | disposition home or self-care (01) ==
PROVIDERS: Emergency Provider Family Medicine; PCP Internal Medicine
DX: F41.9 Anxiety disorder, unspecified (principal)
CPT/HCPCS: 36415; 80053; 81001; 83605; 83690; 84484; 85025; 85610; 86140; 93005; 96374; 99283; 99284; J2060

== ENCOUNTER 2020-10-18 16:18 | Outpatient (CLI) | payer MEDICARE, SELFPAY ==
--- NOTE | ~2020-10-18 | CT_ITS ---
EXAMINATION: CT abdomen pelvis w con DATE: 10/18/2020 17:34 INDICATION: Right lower quadrant abdominal pain. TECHNIQUE: Computed tomography (CT) of the abdomen and pelvis was performed with 100 mL Omnipaque 350 intravenous contrast. Automated exposure control and iterative reconstruction technique were employe d. The dose-length product was 330.23 mGy-cm. COMPARISON: None. FINDINGS: The visualized portions of the lung bases demonstrate mild atelectasis. No pleural effusion . The heart size is normal. There are coronary artery calcifications. No pericardial effusion. The li vashti, gallbladder, spleen, pancreas, and adrenal glands are normal. There is cortical thinning of the kidneys. There is a left inguinal hernia containing fat. There is diverticulosis of the colon without evidence of diverticulitis. The appendix is not visualized. There are no pathologically enlarged lym ph nodes. There is no free intraperitoneal fluid. There is lumbar dextroscoliosis and severe spondylo sis. IMPRESSION: 1. Left inguinal hernia containing fat. Reviewed, dictated and finalized at location A.
== END 2020-10-18 16:19 | disposition home or self-care (01) ==
PROVIDERS: PCP Internal Medicine; Visit Provider Internal Medicine
DX: R10.31 Right lower quadrant pain (principal); K40.90 Unilateral inguinal hernia, without obstruction or gangrene, not specified as recurrent
CPT/HCPCS: 74177; Q9967

== ENCOUNTER 2022-12-11 20:43 | Emergency (ER) | payer MEDICARE, SELFPAY ==
--- NOTE | ~2022-12-11 | CT_ITS ---
EXAMINATION: CTA chest PE protocol DATE: 12/11/2022 22:33 INDICATION: left chest pain with positive D-dimer TECHNIQUE: Computed tomography angiography (CTA) of the chest was performed with 100 mL Omnipaque-350 intravenous contrast timed to evaluate the pulmonary arteries. Coronal maximum intensity projection 3D-reconstructions were created by the technologist. The dose-length product (DLP) was 215.53 mGy-cm. Automated exposure control and iterative reconstruction technique were employed. COMPARISON: 05/15/2020; x-ray chest 12/11/2022. FINDINGS: Lung parenchyma and airways: Motion limited. Dependent and bibasilar atelectasis. Pleura: Unremarkable. Thoracic inlet, axillae and chest wall: Unremarkable. Thoracic aorta: Normal. Mediastinum: Dilated central pulmonary arteries, as can be seen with pulmonary arterial hypertension. Heart and pericardium: Cardiomegaly. Aortic valve and mitral calcification. Coronary artery calcifications: Moderate. Upper abdomen: Bilateral renal cortical thinning and perinephric stranding. Right-sided calyceal dila tion, partially visualized. Bones: No acute osseous finding. Pulmonary arteries: Study quality: Motion artifact limits evaluation, such that nonobstructing segmen timur or obstructing subsegmental emboli could be missed. No central pulmonary emboli detected. IMPRESSION: Motion limited examination which obscures segmental and subsegmental arteries. No CT evidence of acut e central lobe pulmonary embolus. Suggestion of hydronephrosis in the right kidney, partially visualized. Correlate with right flank pa in and urinalysis. Consider renal ultrasound for further evaluation. Reviewed, dictated and finalized at location K. IMPRESSION: Motion limited examination which obscures segmental and subsegmental arteries. No CT evidence of acute central lobe pulmonary embolus. Suggestion of hydronephrosis in the right kidney, partially visualized. Correla te with right flank pain and urinalysis. Consider renal ultrasound for further evaluation.
--- NOTE | ~2022-12-11 | XR_ITS ---
EXAMINATION: XR chest 1V portable Exam Date/Time: 12/11/2022 21:05 CDT HISTORY: LEFT SIDE CP Comparison: 02/06/2009. RESULT: Lines, tubes, and devices: Lumbar vertebroplasty cement. Lungs and pleura: Low volumes with crowding, otherwise clear. Cardiomediastinal silhouette: Stable. Other: No acute osseous or upper abdominal finding. IMPRESSION: No acute cardiopulmonary process. Reviewed, dictated and finalized at location K.
--- NOTE | 2022-12-11 20:47 | ECG_ITS ---
Measurements Intervals [place] Rate: 59 P: 24 [place]: 216 QRS: -16 QRSD: 89 T: 44 QT: 421 QTc: 418 Interpretive Statements SINUS BRADYCARDIA WITH FIRST DEGREE AV BLOCK NO PREVIOUS ECG AVAILABLE FOR COMPARISON Electronically Signed On 12-12-2022 13:02:13 CDT by Libia Jain M.D.
--- NOTE | 2022-12-11 20:58 | ED.CHESTPAIN ---
HPI - Chest Pain General Chief Complaint: Chest Pain Stated Complaint: left lower chest pain Source: patient and EMS Mode of arrival: ambulatory History of Present Illness HPI narrative: 87-year-old female with a history of arthritis, status post back surgery, hypertension, anxiety, GERD, dyslipidemia, negative stress test on 09/20/2019 presents to the ER with -- anterior left lower chest pain which has been intermittent since early afternoon. Initially the pain was rated as 10/10 but resolved spontaneously in 1 hour. The patient was at rest when the pain came on. Subsequently she has had intermittent pain. No radiation of the pain. No nausea/ vomiting. No shortness of breath. No lightheadedness. patient got aspirin EN route to the hospital by EMS. MD complaint: chest pain Onset (ago): hour(s) ( Pain has been present for around 8 hours.) Timing of current episode: episodic Prior episodes: No Onset: during rest Pain location: left chest ( Left lower chest) Pain radiation: none Severity: severe Pain scale (0-10): 10 Quality: aching Relieving factors: nothing Exacerbating factors: nothing Treatment prior to arrival: aspirin Risk Factors Coronary artery disease risk factors: hyperlipidemia and hypertension Thoracic aortic dissection risk factors: longstanding hypertension Related Data On Oral Contraceptives: No Home Medications Medication Instructions Recorded Confirmed atorvastatin 40 mg tablet 40 mg PO DAILY 06/02/20 12/11/22 gabapentin 300 mg capsule 300 mg PO BID 06/02/20 12/11/22 losartan 50 mg tablet 50 mg PO DAILY 06/02/20 12/11/22 metoprolol succinate 50 mg 50 mg PO DAILY 06/02/20 12/11/22 tablet,extended release 24 hr celecoxib 200 mg capsule 200 mg PO DAILY 09/25/20 12/11/22 esomeprazole magnesium 20 mg 20 mg PO DAILY 10/13/20 12/11/22 capsule,delayed release (Nexium) cholecalciferol (vitamin D3) 25 25 mcg PO DAILY 03/06/21 12/11/22 mcg (1,000 unit) capsule mecobalamin (vitamin B12) 1,000 1,000 mcg sublingual DAILY 03/06/21 12/11/22 mcg disintegrating tablet,sublingual amlodipine 10 mg tablet 10 mg PO DAILY 06/26/21 12/11/22 dicyclomine 10 mg capsule 10 mg PO QID 06/26/21 12/11/22 Allergies Allergy/AdvReac Type Severity Reaction Status Date / Time No Known Allergies Allergy Verified 10/03/21 12:57 Review of Systems Review of Systems: All systems reviewed & are unremarkable except as noted in HPI and below Constitutional: Constitutional: Reports as per HPI and Reports no additional constitutional complaints Eyes: Eyes: Reports as per HPI and Reports no additional eye complaints ENT: Reports system reviewed and no additional complaints, except as documented and Reports as per HPI Cardiovascular: Cardiovascular: Reports as per HPI, Reports no additional cardiovascular complaints and Reports chest pain Respiratory: Respiratory: Reports as per HPI and Reports no additional respiratory complaints Gastrointestinal: Gastrointestinal: Reports as per HPI and Reports no additional gastrointestinal complaints Genitourinary: Genitourinary: Reports no additional female genitourinary complaints and Reports as per HPI Musculoskeletal: Musculoskeletal: Reports no additional musculoskeletal complaints and Reports as per HPI Integumentary/Breasts: Skin/Breast: Reports system reviewed and no additional complaints, except as docu and Reports as per HPI Neurologic: Reports system reviewed and no additional complaints, except as documented and Reports as per HPI Psychiatric: Psychiatric: Reports no additional psychiatric complaints, Reports as per HPI and Reports anxiety Endocrine: Endocrine: Reports no additional endocrine complaints and Reports as per HPI Hematologic/Lymphatic: Hematologic/Lymphatic: Reports no additional hematologic/lymphatic complaints and Reports as per HPI Allergic/Immunologic: Allergic/Immunologic: Reports no additional allergic/immunologic complaints and Reports as per HPI
[2022-12-11 21:18] LABS: Basophils Absolute Auto 0.04 K/mm3 (0.00-0.10); Basophils Percent Auto 0.5 % (0.0-1.0); Eosinophils Absolute Auto 0.18 K/mm3 (0.02-0.50); Eosinophils Percent Auto 2.5 % (1.0-6.0); Hematocrit 33.4 % (35.0-42.0); Immature Granulocyte Absolute 0.03 K/mm3 (0.00-0.00); Immature Granulocyte Percent A 0.4 % (0.0-0.0); Lymphocytes Absolute Auto 2.06 K/mm3 (1.10-4.50); Lymphocytes Percent Auto 28.3 % (18.0-42.0); Mean Corpuscular HGB Conc 32.9 g/dL (32.0-36.0); Mean Corpuscular Hemoglobin 31.9 pg (27.0-31.0); Mean Corpuscular Volume 96.8 fL (78.0-102.0); Mean Platelet Volume 8.9 fl (9.2-11.8); Monocytes Absolute Auto 0.77 K/mm3 (0.10-0.90); Monocytes Percent Auto 10.6 % (2.0-11.0); Neutrophils Absolute Auto 4.2 K/mm3 (1.7-7.2); Neutrophils Percent Auto 57.7 % (50.0-70.0); Platelet Count Result 226 K/mm3 (150-420); Red Blood Count 3.45 M/mm3 (4.20-5.40); Red Cell Distribution Width 13.2 % (11.6-14.4); White Blood Count 7.3 K/mm3 (4.8-10.8)
[2022-12-11 21:19] VITALS: BP 183/75; PULSE 71; RESP 16; TEMP 36.4; O2SAT 98
[2022-12-11 21:32] LABS: INR 0.9; Partial Thromboplastin Time 24.1 SEC (23.90-30.70); Prothrombin Time 10.1 Seconds (9.50-12.10)
[2022-12-11 21:39] LABS: Lactic Acid Reflex 1.8 mmol/L (0.4-2.0)
[2022-12-11 21:47] LABS: D Dimer 0.59 mg/L (0.19-0.50)
[2022-12-11 21:49] LABS: Alanine Aminotransferase 28 U/L (14-59); Albumin Level 3.3 g/dL (3.4-5.0); Alkaline Phosphatase 84 U/L (46-116); Anion Gap 14 mmol/L (8-16); Aspartate Amino Transferase 12 U/L (15-37); Bilirubin,Total 0.3 mg/dL (0.00-1.00); Blood Urea Nitrogen 19 mg/dL (7-18); Calcium 9.6 mg/dL (8.5-10.1); Carbon Dioxide 24 mmol/L (21-32); Chloride 106 mmol/L (98-108); Estimated CRCL calculation 26 ml/min; Estimated Glomerular Filt Rate 45; Glucose 146 mg/dL (70-99); NT Pro B Type Natriuretic Pept 240 pg/mL (0-450); Osmolality Calculated 303 mOsm/kg (285-295); Potassium 4.1 mmol/L (3.5-5.1); Sodium 144 mmol/L (136-145); Total Protein 6.3 g/dL (6.4-8.2)
[2022-12-11 21:51] LABS: Lipase 43 U/L (16-77)
[2022-12-11 21:57] VITALS: BP 151/59; PULSE 61; RESP 18; TEMP 37; O2SAT 96
[2022-12-11] MEDS: LACTATED RINGERS 500 ML 999 ML IV CONT (21:58)
[2022-12-11 22:44] VITALS: BP 143/55; PULSE 54; RESP 16; TEMP 37; O2SAT 98
[2022-12-11 23:06] LABS: Appearance Urine Clear (Clear); Bilirubin Urine Negative (Negative); Blood Urine Trace-Intact (Negative); Color Urine Light Yellow (Yellow); Glucose Urine UA Negative (Negative); Ketones Urine Negative (Negative); Leukocyte Esterase Ur Trace LEU/UL (Negative); Nitrate Urine Negative (Negative); Protein Urine Negative (Negative); Specific Grav Ur <= 1.005 (1.010-1.020); Urobilinogen Urine 0.2 mg/dL (0.2-1.0)
[2022-12-11 23:08] LABS: Add Urine Microscopic? YES; RBC Urine 0-2 /hpf (0-2); Squamous Epithelial Cell Urine Rare /hpf (Few); WBC Urine 0-3 /hpf (0-3)
[2022-12-11 23:09] LABS: Bacteria Urine Trace /hpf
--- NOTE | 2022-12-11 23:18 | PC.NURSE ---
MD accidently ordered pt's meds for morning administration. Pt will not be receiving home medications.
[2022-12-11 23:23] VITALS: BP 141/58; PULSE 57; RESP 16; TEMP 37; O2SAT 96
== END 2022-12-11 23:35 | disposition home or self-care (01) ==
PROVIDERS: Emergency Provider Internal Medicine Critical Care Medicine; PCP Internal Medicine
DX: I12.9 Hypertensive chronic kidney disease with stage 1 through stage 4 chronic kidney disease, or unspecified chronic kidney disease (principal); N18.31 Chronic kidney disease, stage 3a; R07.9 Chest pain, unspecified; N13.30 Unspecified hydronephrosis; E78.5 Hyperlipidemia, unspecified; R00.1 Bradycardia, unspecified; I44.0 Atrioventricular block, first degree; Z79.899 Other long term (current) drug therapy
CPT/HCPCS: 36415; 71045; 71275; 80053; 81001; 83605; 83690; 83880; 84484; 85025; 85380; 85610; 85730; 93005; 96360; 99284; J7120; Q9967

== ENCOUNTER 2023-04-11 10:05 | Outpatient (CLI) | payer MEDICARE, SELFPAY ==
[2023-04-11 10:32] LABS: Basophils Absolute Auto 0.04 K/mm3 (0.00-0.10); Basophils Percent Auto 0.4 % (0.0-1.0); Eosinophils Absolute Auto 0.11 K/mm3 (0.02-0.50); Eosinophils Percent Auto 1.2 % (1.0-6.0); Hematocrit 37.8 % (35.0-42.0); Hemoglobin 12.6 g/dL (11.7-13.8); Immature Granulocyte Absolute 0.03 K/mm3 (0.00-0.00); Immature Granulocyte Percent A 0.3 % (0.0-0.0); Lymphocytes Percent Auto 17.1 % (18.0-42.0); Mean Corpuscular HGB Conc 33.3 g/dL (32.0-36.0); Mean Corpuscular Hemoglobin 30.9 pg (27.0-31.0); Mean Corpuscular Volume 92.6 fL (78.0-102.0); Mean Platelet Volume 8.7 fl (9.2-11.8); Monocytes Absolute Auto 0.57 K/mm3 (0.10-0.90); Monocytes Percent Auto 6.1 % (2.0-11.0); Neutrophils Percent Auto 74.9 % (50.0-70.0); Platelet Count Result 304 K/mm3 (150-420); Red Blood Count 4.08 M/mm3 (4.20-5.40); Red Cell Distribution Width 12.7 % (11.6-14.4); White Blood Count 9.3 K/mm3 (4.8-10.8)
[2023-04-11 10:42] LABS: Hemoglobin A1C 5.9 % (<5.7)
[2023-04-11 11:13] LABS: Appearance Urine Slightly Cloudy (Clear); Bilirubin Urine Negative (Negative); Blood Urine Negative (Negative); Color Urine Yellow (Yellow); Glucose Urine UA Negative (Negative); Ketones Urine Negative (Negative); Leukocyte Esterase Ur 2+ (Negative); Nitrate Urine Positive (Negative); Protein Urine 1+ (Negative); Urobilinogen Urine 0.2 mg/dL (0.2-1.0)
[2023-04-11 11:25] LABS: Add Urine Microscopic? YES; Bacteria Urine 1+ /hpf; RBC Urine None seen /hpf (0-2); Squamous Epithelial Cell Urine Moderate /hpf (Few)
[2023-04-11 13:26] LABS: Anion Gap 11 mmol/L (8-16); Blood Urea Nitrogen 16 mg/dL (7-18); Calcium 9.5 mg/dL (8.5-10.1); Carbon Dioxide 25 mmol/L (21-32); Chloride 106 mmol/L (98-108); Cholesterol 176 mg/dL (0-200); Estimated Glomerular Filt Rate 36; Free T3 2.34 pg/mL (2.18-3.98); Glucose 116 mg/dL (70-99); HDL Direct 64 mg/dL (40-60); LDL Cholesterol Calculated 65 mg/dL (<130); Osmolality Calculated 296 mOsm/kg (285-295); Potassium 4.7 mmol/L (3.5-5.1); Sodium 142 mmol/L (136-145); Thyroid Stimulating Hormone 1.46 uIU/mL (0.36-3.74); Triglycerides 236 mg/dL (0-150); Vitamin B12 1304 pg/mL (193-986)
[2023-04-11 13:53] LABS: Erythrocyte Sedimentation Rate 36 mm/hr (0-30)
[2023-04-12 09:37] LABS: Alanine Aminotransferase 29 U/L (14-59); Alkaline Phosphatase 85 U/L (46-116); Aspartate Amino Transferase 19 U/L (15-37); Bilirubin,Total 0.5 mg/dL (0.00-1.00); Total Protein 7.1 g/dL (6.4-8.2)
== END 2023-04-11 10:06 | disposition home or self-care (01) ==
LOC: CHSLAB 10:07
PROVIDERS: PCP Internal Medicine; Visit Provider Internal Medicine
DX: I10 Essential (primary) hypertension (principal); E78.2 Mixed hyperlipidemia; N18.2 Chronic kidney disease, stage 2 (mild); R73.01 Impaired fasting glucose; R53.82 Chronic fatigue, unspecified
CPT/HCPCS: 36415; 80048; 80053; 80061; 81001; 82607; 83036; 84439; 84443; 84481; 85025; 85652

== ENCOUNTER 2023-10-21 09:58 | Outpatient (CLI) | payer MEDICARE, SELFPAY ==
[2023-10-21 10:31] LABS: Basophils Absolute Auto 0.05 K/mm3 (0.00-0.10); Basophils Percent Auto 0.6 % (0.0-1.0); Eosinophils Absolute Auto 0.09 K/mm3 (0.02-0.50); Eosinophils Percent Auto 1.1 % (1.0-6.0); Hematocrit 38.4 % (35.0-42.0); Hemoglobin 12.5 g/dL (11.7-13.8); Immature Granulocyte Absolute 0.03 K/mm3 (0.00-0.00); Immature Granulocyte Percent A 0.4 % (0.0-0.0); Lymphocytes Absolute Auto 1.52 K/mm3 (1.10-4.50); Mean Corpuscular HGB Conc 32.6 g/dL (32-36); Mean Corpuscular Hemoglobin 31.1 pg (27.0-31.0); Mean Corpuscular Volume 95.5 fL (78.0-102.0); Mean Platelet Volume 8.8 fl (9.2-11.8); Monocytes Absolute Auto 0.64 K/mm3 (0.10-0.90); Neutrophils Absolute Auto 5.65 K/mm3 (1.70-7.20); Neutrophils Percent Auto 70.9 % (50.0-70.0); Platelet Count Result 249 K/mm3 (150-420); Red Blood Count 4.02 M/mm3 (4.20-5.40); Red Cell Distribution Width 12.8 % (11.6-14.4)
[2023-10-21 11:35] LABS: Alanine Aminotransferase 24 U/L (14-59); Albumin Level 3.9 g/dL (3.4-5.0); Alkaline Phosphatase 90 U/L (46-116); Anion Gap 8 mmol/L (4-12); Aspartate Amino Transferase 14 U/L (15-37); Bilirubin,Total 0.5 mg/dL (0.00-1.00); Blood Urea Nitrogen 19 mg/dL (7-18); Calcium 9.6 mg/dL (8.5-10.1); Carbon Dioxide 28 mmol/L (21-32); Chloride 102 mmol/L (98-108); Cholesterol 192 mg/dL (0-200); Creatine Kinase 33 U/L (26-192); Estimated Glomerular Filt Rate 38; Free T3 2.46 pg/mL (2.18-3.98); Free T4 Free Thyroxine 1.06 ng/dL (0.76-1.46); Glucose 102 mg/dL (70-99); HDL Direct 56 mg/dL (40-60); LDL Cholesterol Calculated 81 mg/dL (<130); Osmolality Calculated 288 mOsm/kg (285-295); Potassium 4.7 mmol/L (3.5-5.1); Sodium 138 mmol/L (136-145); Thyroid Stimulating Hormone 1.66 uIU/mL (0.36-3.74); Total Protein 6.7 g/dL (6.4-8.2); Triglycerides 274 mg/dL (0-150); Vitamin B12 1948 pg/mL (193-986)
== END 2023-10-21 09:59 | disposition home or self-care (01) ==
PROVIDERS: PCP Internal Medicine; Visit Provider Internal Medicine
DX: E78.2 Mixed hyperlipidemia (principal); R73.01 Impaired fasting glucose; I12.9 Hypertensive chronic kidney disease with stage 1 through stage 4 chronic kidney disease, or unspecified chronic kidney disease; E53.8 Deficiency of other specified B group vitamins; N18.2 Chronic kidney disease, stage 2 (mild); E03.4 Atrophy of thyroid (acquired)
CPT/HCPCS: 36415; 80053; 80061; 82550; 82607; 83036; 84439; 84443; 84481; 85025

== ENCOUNTER 2023-10-22 09:41 | Outpatient (CLI) | payer MEDICARE, SELFPAY ==
[2023-10-22 09:56] LABS: Add Urine Microscopic? YES; Appearance Urine Clear (Clear); Bilirubin Urine Negative (Negative); Blood Urine Negative (Negative); Color Urine Light Yellow (Yellow); Glucose Urine UA Negative (Negative); Ketones Urine Negative (Negative); Leukocyte Esterase Ur 1+ LEU/UL (Negative); Nitrate Urine Positive (Negative); Protein Urine Negative (Negative); Urobilinogen Urine 0.2 mg/dL (0.2-1.0)
[2023-10-22 10:01] LABS: RBC Urine None seen /hpf (0-2)
[2023-10-22 10:02] LABS: Bacteria Urine 3+ /hpf; Squamous Epithelial Cell Urine Few /hpf (Few)
== END 2023-10-22 09:42 | disposition home or self-care (01) ==
PROVIDERS: PCP Internal Medicine; Visit Provider Internal Medicine
DX: R82.90 Unspecified abnormal findings in urine (principal); E78.2 Mixed hyperlipidemia; R73.01 Impaired fasting glucose; E53.8 Deficiency of other specified B group vitamins; I12.9 Hypertensive chronic kidney disease with stage 1 through stage 4 chronic kidney disease, or unspecified chronic kidney disease; N18.2 Chronic kidney disease, stage 2 (mild); E03.4 Atrophy of thyroid (acquired)
CPT/HCPCS: 81001; 87077; 87086; 87088; 87186

== ENCOUNTER 2023-11-05 15:55 | Outpatient (CLI) | payer MEDICARE, SELFPAY ==
--- NOTE | ~2023-11-05 | XR_ITS ---
XR wrist LT min 3V Ordering provider: Clarice Cazares MD History: . ACUTE PAIN LEFT WRIST/NO TRAUMA . Comparison: None. FINDINGS: BONES: Bony fragment seen posteriorly suggestive of fracture in the triquetral bone. No definite scap hoid fracture. JOINT SPACES: Osteoarthritic changes of the first carpometacarpal joint. Loss of volume of the trapez ium and trapezoid bones. Narrowing of the joint between the scaphoid and trapezium bone. Narrowing of the radiocarpal joint. SOFT TISSUES: Highly suggestive chondrocalcinosis seen near to the ulna. IMPRESSION: Highly suggestive triquetral bone fracture. Polyarticular osteoarthritic changes. Reviewed, dictated and finalized at location A.
[2023-11-05 16:26] LABS: Hematocrit 35.6 % (35.0-42.0); Mean Corpuscular HGB Conc 33.7 g/dL (32-36); Mean Corpuscular Hemoglobin 31.7 pg (27.0-31.0); Mean Corpuscular Volume 94.2 fL (78.0-102.0); Mean Platelet Volume 8.8 fl (9.2-11.8); Platelet Count Result 247 K/mm3 (150-420); Red Blood Count 3.78 M/mm3 (4.20-5.40); Red Cell Distribution Width 12.9 % (11.6-14.4); White Blood Count 9.5 K/mm3 (4.8-10.8)
[2023-11-05 16:39] LABS: CRP < 0.5 mg/dL (0.0-0.9); Rheumatoid Factor Screen Negative (Negative); Uric Acid 5.3 mg/dL (2.6-6.0)
[2023-11-05 17:22] LABS: Erythrocyte Sedimentation Rate 21 mm/hr (0-30)
[2023-11-11 15:58] LABS: Anti Cyclic Citrullinated Pept <16 UNITS
== END 2023-11-05 15:56 | disposition home or self-care (01) ==
LOC: CHSLAB 15:58
PROVIDERS: PCP Internal Medicine; Visit Provider Internal Medicine
DX: M25.532 Pain in left wrist (principal)
CPT/HCPCS: 36415; 73110; 84550; 85027; 85652; 86140; 86200; 86430

== ENCOUNTER 2023-11-06 15:58 | Outpatient (CLI) | payer MEDICARE, SELFPAY ==
--- NOTE | ~2023-11-06 | CT_ITS ---
EXAMINATION: CT wrist LT wo con DATE: 11/06/2023 16:49 INDICATION: Left wrist fracture and pain TECHNIQUE: High resolution computed tomography (CT) of the left wrist was performed without intraveno us contrast. Additional sagittal and coronal reconstructions were performed. Automated exposure contr ol and iterative reconstruction technique were employed. The dose-length product was 412.30 mGy-cm. COMPARISON: None FINDINGS: Images normal. No fracture. The calcific density at the dorsal aspect of the proximal carpal row susp ected on prior radiographs of a triquetral fracture likely represent chondrocalcinosis which is seen along the the left wrist, triscaphe and first carpometacarpal joints. No fractures identified. Polyar ticular osteoarthritis, advanced at the first carpometacarpal joint, moderate severity at the triscap he joint and mild at the wrist, distal radioulnar, midcarpal and remaining carpal metacarpal joints. There are multiple subarticular and juxta-articular lytic lesions with sclerotic involving multiple c arpal bones which raises suspicion for chronic erosion suspicious for an inflammatory arthritis inclu ding crystalline arthropathy such as gout or calcium pyrophosphate deposition (CPPD) disease which wo uld also account for the chondrocalcinosis. Soft tissues are unremarkable. No evident joint effusions are other abnormal fluid collections. IMPRESSION: 1. No fracture or other acute osseous abnormality. 2. Polyarticular osteoarthritis at the left wrist and carpus, advanced at the first carpometacarpal j oint, moderate at the triscaphe joint and otherwise mild. 3. Extensive chondrocalcinosis and small lytic lesions in the carpus suspicious for crystalline arthr opathy such as gout or calcium pyrophosphate deposition (CPPD) disease with differential for the lyti c lesions including other inflammatory arthritis or osteoarthritis related cystic change. Reviewed, dictated and finalized at location B. IMPRESSION: 1. No fracture or other acute osseous abnormality. 2. Polyarticular osteoarthritis at the left wrist and carpus, advanced at the f irst carpometacarpal joint, moderate at the triscaphe joint and otherwise mild. 3. Extensive chondrocalcinosis and small lytic lesions in the carpus suspicious for crystalline arthropathy such as gout or calcium pyrophosphate deposition ( CPPD) disease with differential for the lytic lesions including other inflammat ory arthritis or osteoarthritis related cystic change.
== END 2023-11-06 15:59 | disposition home or self-care (01) ==
LOC: CHSIMG 16:02
PROVIDERS: PCP Internal Medicine; Visit Provider Internal Medicine
DX: M25.532 Pain in left wrist (principal); M19.032 Primary osteoarthritis, left wrist; M11.232 Other chondrocalcinosis, left wrist
CPT/HCPCS: 73200

== ENCOUNTER 2024-05-07 10:19 | Outpatient (CLI) | payer MEDICARE, SELFPAY ==
[2024-05-07 10:40] LABS: Basophils Absolute Auto 0.05 K/mm3 (0.00-0.10); Basophils Percent Auto 0.6 % (0.0-1.0); Eosinophils Absolute Auto 0.12 K/mm3 (0.02-0.50); Eosinophils Percent Auto 1.6 % (1.0-6.0); Hematocrit 39.9 % (35.0-42.0); Hemoglobin 12.8 g/dL (11.7-13.8); Immature Granulocyte Absolute 0.04 K/mm3 (0.00-0.00); Immature Granulocyte Percent A 0.5 % (0.0-0.0); Lymphocytes Absolute Auto 1.63 K/mm3 (1.10-4.50); Lymphocytes Percent Auto 21.2 % (18.0-42.0); Mean Corpuscular HGB Conc 32.1 g/dL (32-36); Mean Corpuscular Hemoglobin 30.5 pg (27.0-31.0); Mean Platelet Volume 8.9 fl (9.2-11.8); Monocytes Absolute Auto 0.61 K/mm3 (0.10-0.90); Monocytes Percent Auto 7.9 % (2.0-11.0); Neutrophils Absolute Auto 5.25 K/mm3 (1.70-7.20); Neutrophils Percent Auto 68.2 % (50.0-70.0); Platelet Count Result 294 K/mm3 (150-420); Red Cell Distribution Width 12.8 % (11.6-14.4); White Blood Count 7.7 K/mm3 (4.8-10.8)
--- OUTSIDE RECORDS SUMMARY | 2024-05-07 11:30 | XMS_ITS | Clinical Summary ---
Author Organization [facility] Address [address] [place] [address] Care Team Providers Care Tow Truck Dispatcher Name Role Phone Clarice Cazares MD Primary Care Provider [phone] Allergies No known active allergies Medications LORazepam 1 MG tablet Take 1 tablet by mouth 2 (two) times daily as needed. 07/20/2019 Active Gabapentin Enacarbil ER 300 MG Tab CR Take 1 tablet by mouth 2 (two) times daily with meals. Active celecoxib 200 MG capsule Take 200 mg by mouth daily. Active metoprolol succinate ER 50 MG 24 hr tablet Take 50 mg by mouth daily. Active vitamin B-12 500 MCG tablet Take 500 mcg by mouth daily. Active Multiple Vitamins-Minera ls (CENTRUM SILVER OR) Take 1 tablet by mouth daily. Active vitamin D3, cholecalciferol , 1000 UNIT Tab tablet Take 1 tablet by mouth daily. Active esomeprazole 20 MG capsule Take 20 mg by mouth every morning before breakfast. Active latanoprost 0.005 % ophthalmic solution 1 drop nightly at bedtime. Active atorvastatin 40 MG tablet 05/30/2020 Active losartan 50 MG tablet 06/12/2020 Active gabapentin 300 MG capsule 2 (two) times a day. 07/26/2020 Active amLODIPine 10 MG tablet 08/07/2020 Active DULoxetine 30 MG capsule Take 30 mg by mouth daily. Active HYDROcodone-winston taminophen 5-325 MG tabletIndicatio ns:Acute Pain < 7 Day Supply Take 1 tablet by mouth every 6 (six) hours as needed. Indications: Acute Pain < 7 Day Supply 20 tablet 11/29/2020 Active Active Problems Problem Noted Date Diagnosed Date Osteoarthritis 08/24/2019 Mixed hyperlipidemia Hypertension, essential Chronic kidney disease (CKD), stage II (mild) Family History Medical History Relation Comments stroke Brother diabetes Father heart attack Father arthirtis Mother Relation Status Comments Brother Father Mother Social History Tobacco Use Types Packs/Day Years Used Date Smoking Tobacco: Never Smokeless Tobacco: Never Alcohol Use Standard Drinks/Week Comments Never 0 (1 standard drink = 0.6 oz pur e alcohol) AUDIT-C Answer Date Recorded Q1: How often do you have a drink containing alc ohol? Never 08/24/2019 Average Number of Drinks Not on file 020 Frequency of Binge Drinking Not on file 08/2019 Education Answer Date Recorded What is the highest level of school you have completed or the highest degree you have received? 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 Not on f ile Not on file Not on file Last Filed Vital Signs Vital Sign Reading Time Taken Comments Blood Pressure 183/57 11/29/2020 11:28 AM CDT Pulse 59 11/29/2020 11:22 AM CDT Temperature 36.6 C (97.8 F) 11/29/2020 10:33 AM CDT Respiratory Rate 20 11/29/2020 11:22 AM CDT Oxygen Saturation 97% 11/29/2020 11:22 AM CDT Inhaled Oxygen Concentration - - Weight 63.5 kg (140 lb) 11/29/2020 10:33 AM CDT Height 154.9 cm (5' 1 ) 11/29/2020 10:33 AM CDT Body Mass Index 26.45 11/29/2020 10:33 AM CDT Plan of Treatment Health Maintenance Due Date Last Done Comments DTaP, Tdap and Td Vaccines (1 - Tdap) 02/02/1954 Annual Medicare Wellness Visit 2002 RSV Immunization or 60+ Years (1 - 1-dose 75+ series) 02/02/2012 COVID-19 Vaccine ( - season) 2023 Influenza Adult (#1) 2023 01/10/2019, 12/10/2017, 11/12/2016, Additional history exists Pneumococcal Vaccine: 65+ Years Completed 02/22/2015, 02/04/2014 Zoster Vaccines Completed 12/10/2017, 09/18, 10/03/2017, Additional history exists Meningococcal B Vaccine Aged Out No l onger eligible based on patient's age to complete this topic Meningococcal Vaccine Aged Out No fidencio christ eligible based on patient's age to complete this topic RSV Immunizations Under 20 Months Aged Out No longer eligible based on patient's age to complete this topic Insurance MEDICARE [facility] MEDICARE [facility] Care Teams Tow Truck Dispatcher Relationship Specialty Start Date End Date Clarice Cazares MD [address] [place] [address] PCP - General INTERNAL MEDICINE 08/17/19
--- OUTSIDE RECORDS SUMMARY | 2024-05-07 11:30 | XMS_ITS | Encounter Summary ---
Author Organization [facility] Address [address] [place] [address] Care Team Providers Care Admin Secretary Name Role Phone Clarice Cazares MD Primary Care Provider [phone] Reason for Referral * Surgical (Routine) - Closed Specialty Diagnoses / Procedures Referred By Contac t Referred To Contact Procedures Case request operating room: BLOCK MEDIAL BRANCH CERVICAL [id number] Alyssia Brown MD Three [facility] [address] [place] [id number] Phone: tel: fax: Referral ID Status Reason Start Date Expiration Date Visits Re quested Visits Authorized [id number] Closed 09/26/2020 10/27/2021 1 1 * Surgical (Routine) - Closed Specialty Diagnoses / Procedures Referred By Contac t Referred To Contact Procedures Case request operating room: INJECTION EPIDURAL STEROID CERVICAL C4-5 Carla Infante APNP Phone: tel: fax: Referral ID Status Reason Start Date Expiration Date Visits Re quested Visits Authorized [id number] Closed 06/06/2020 07/06/2021 1 1 Encounter Details Date Type Department Care Team (Late st Contact Info) Description 06/06/2020 Prep for Procedure [facility] [address] 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 No / Unsure 06/06/2020 11:29 AM CDT documented as of this encounter Plan of Treatment Scheduled Orders Name Type Priority Associated Diagnoses Orde r Schedule Case request operating room: INJECTION EPIDURAL STEROID CERVICAL C4-5 Case Request Routine Once for 1 Occur rences starting 06/06/2020 until 06/06/2020 Case request operating room: BLOCK MEDIAL BRANCH CERVICAL [id number] Case Request Routine Once for 1 Occur rences starting 09/26/2020 until 09/26/2020 documented as of this encounter Visit Diagnoses Not on filedocumented in this encounter Care Teams Admin Secretary Relationship Specialty Start Date End Date Clarice Cazares MD [address] [place] [address] PCP - General INTERNAL MEDICINE 08/17/19 documented as of this encounter
--- OUTSIDE RECORDS SUMMARY | 2024-05-07 11:30 | XMS_ITS | Encounter Summary ---
Author Organization [facility] Address [address] [place] [address] Care Team Providers Care Outsole Leveler Name Role Phone Clarice Cazares MD Primary Care Provider [phone] Encounter Details Date Type Department Care Team (Late st Contact Info) Description 08/24/2019 Abstract [facility] [address] [place] [address] Abstract, Doc [facility] Social History Tobacco Use Types Packs/Day Years [...] of Binge Drinking Not on file 08/2019 Comments Unknown Sex and Gender Information Value Date Recorded Sex Assigned at Not on file Legal Sex Female 8:21 PM CDT Gender Identity Not on file Sexual Orientation Not on file documented as of this encounter Plan of Treatment Not on file documented as of this encounter Procedures Procedure Name Priority Date/Time Associated Diagnosis Comments CMP (ABSTRACTED LAB) Routine 07/09/2019 CBC W/ MANUAL DIFF (OUTSIDE) Routine 07/09/2019 TSH (OUTSIDE LAB) Routine 07/09/2019 VITAMIN B-12 Routine 07/09/2019 FREE T3 Routine 07/09/2019 LIPID PANEL Routine 07/09/2019 THYROXINE, FREE (FT4) Routine 07/09/2019 VITAMIN D, 25 OH Routine 07/09/2019 CK (CPK) Routine 07/09/2019 documented in this encounter Results * VITAMIN B-12 (07/09/2019) VITAMIN B12 S/P/B 1,895 07/09/2019 us Clarice Cazares MD LABORATORY Final Result * CBC W/ MANUAL DIFF (OUTSIDE) (07/09/2019) WBC 7.7 RBC 3.46 HGB 10.7 HCT 32.6 MCV 942 MCH 30.9 MCHC 32.8 RDW 12.7 PLT 214 MPV 10.2 NEUTROPHILS % 69.3 LYMPHOCYTES % 19.4 MONOCYTES % 9.8 EOSINOPHILS % 1.0 BASOPHILS % 0.5 ABS. NEUTROPHILS 5,336 ABS. LYMPHOCYTES 1,494 ABS. MONOCYTES 755 ABS. EOSINOPHILS 77 ABS. BASOPHILS 39 07/09/2019 us Clarice Cazares MD LABORATORY Final Result * FREE T3 (07/09/2019) FREE T3 2.9 07/09/2019 us Clarice Cazares MD LABORATORY Final Result * THYROXINE, FREE (FT4) (07/09/2019) FREE T4 1.3 07/09/2019 us Clarice Cazares MD LABORATORY Final Result * TSH (OUTSIDE LAB) (07/09/2019) Pathologist [facility] [place] TSH 0.78 07/09/2019 Result Latrice Cazares MD LAB-OUTSIDE/ABSTRACTED Final Result * CK (CPK) (07/09/2019) Pathologist [facility] CPK 94 07/09/2019 Result [facility] us Clarice Cazares MD LABORATORY Final Result * VITAMIN D, 25 OH (07/09/2019) [facility] VITAMIN D 25 HYDROXY S/P/B 39 07/09/2019 Result Latrice Cazares MD LABORATORY Final Result * (ABNORMAL) CMP (ABSTRACTED LAB) (07/09/2019) [facility] SODIUM S/P/B 136 POTASSIUM S/P/B 5.0 CHLORIDE S/P/B 104 CO2 26 BUN 19 CREATININE S/P/B 1.14(A) 0.5 - 1.0 EGFR AFR. AMER. 52 <=90 EGFR NON-AFR. AMER. 45 <=90 CALCIUM S/P/B 9.3 GLUCOSE 123 mg/dL TOTAL PROTEIN S/P/B 6.2 ALBUMIN S/P/B 4.1 3.5 - 5.0 AST 19 ALT 20 ALKALINE PHOSPHATASE S/P/B 66 BILIRUBIN TOTAL S/P/B 0.4 07/09/2019 Result Latrice Cazares MD LAB-OUTSIDE/ABSTRACTED Final Result * LIPID PANEL (07/09/2019) [facility] CHOLESTEROL 151 HDL 42 TRIGLYCERIDES 270 NON HDL CHOLESTEROL 109 CHOL/HDL RATIO 3.6 LDL (CALCULATED) 73 07/09/2019 Result Latrice Cazares MD LABORATORY Final Result documented in this encounter Visit Diagnoses Not on filedocumented in this encounter Care Teams Outsole Leveler Relationship Specialty Start Date End Date Clarice Cazares MD [address] [place] [address] PCP - General INTERNAL MEDICINE 08/17/19 documented as of this encounter
[2024-05-07 11:44] LABS: Alanine Aminotransferase 19 U/L (14-59); Albumin Level 3.8 g/dL (3.4-5.0); Alkaline Phosphatase 100 U/L (46-116); Anion Gap 8 mmol/L (4-12); Aspartate Amino Transferase 15 U/L (15-37); Bilirubin,Total 0.5 mg/dL (0.00-1.00); Blood Urea Nitrogen 17 mg/dL (7-18); Calcium 9.6 mg/dL (8.5-10.1); Carbon Dioxide 26 mmol/L (21-32); Chloride 108 mmol/L (98-108); Cholesterol 197 mg/dL (0-200); Estimated Glomerular Filt Rate 35; Free T4 Free Thyroxine 0.94 ng/dL (0.76-1.46); Glucose 102 mg/dL (70-99); HDL Direct 69 mg/dL (40-60); LDL Cholesterol Calculated 84 mg/dL (<130); Osmolality Calculated 295 mOsm/kg (285-295); Potassium 4.8 mmol/L (3.5-5.1); Sodium 142 mmol/L (136-145); Thyroid Stimulating Hormone 1.62 uIU/mL (0.36-3.74); Total Protein 6.8 g/dL (6.4-8.2); Triglycerides 218 mg/dL (0-150)
[2024-05-07 11:48] LABS: Free T3 2.21 pg/mL (2.18-3.98)
[2024-05-07 14:41] LABS: Add Urine Microscopic? YES; Appearance Urine Clear (Clear); Bilirubin Urine Negative (Negative); Blood Urine Trace-intact (Negative); Color Urine Red (Yellow); Glucose Urine UA Negative (Negative); Ketones Urine Negative (Negative); Leukocyte Esterase Ur 2+ (Negative); Nitrate Urine Negative (Negative); Protein Urine 2+ (Negative); Specific Grav Ur 1.025 (1.010-1.020); Urobilinogen Urine 0.2 mg/dL (0.2-1.0)
[2024-05-07 14:48] LABS: Bacteria Urine Trace /hpf; Squamous Epithelial Cell Urine Few /hpf (Few); WBC Urine >75 /hpf (0-3)
== END 2024-05-07 10:20 | disposition home or self-care (01) ==
PROVIDERS: PCP Internal Medicine; Visit Provider Internal Medicine
DX: N39.0 Urinary tract infection, site not specified (principal); E78.2 Mixed hyperlipidemia; I10 Essential (primary) hypertension; R73.01 Impaired fasting glucose; N18.2 Chronic kidney disease, stage 2 (mild)
CPT/HCPCS: 36415; 80053; 80061; 81001; 83036; 84439; 84443; 84481; 85025; 87077; 87086; 87088; 87186

== ENCOUNTER 2024-05-18 09:58 | Outpatient (CLI) | payer MEDICARE, SELFPAY ==
--- NOTE | ~2024-05-18 | US_ITS ---
EXAMINATION: US carotid duplex BI DATE: 05/18/2024 10:22 INDICATION: Right carotid bruit TECHNIQUE: Grayscale, color Doppler, and pulsed Doppler images of the cervical carotid arteries were obtained. The degree of vessel stenosis is placed in one of the following categories: normal, <50%, 5 0-69%, >=70% but less than near-occlusion, near-occlusion, or total occlusion. Note that percent sten osis relative to normal distal artery lumen diameter is indirectly measured from velocity measurement s as described by Fran, et al. Radiology 2003; 229:340-346. Notes: Normal: Peak systolic velocity <125 centimeters/sec and no plaque <50%. Peak systolic velocity <125 ( EDV <40; ICA/CCA PSV ratio <2.0; used these factors only a tandem lesions or low cardiac output or co ntralateral disease) 50-69 %: PSV 125-230 (EDV 40-100; ratio 2-4) >= 70% but less than near occlusion: PSV greater than 230 (EDV > 100; ratio> 4.0) Near Occlusion: PSV that is variable; markedly narrowed lumen Occlusion: Absent flow on color/spectral Doppler and no lumen on peres scale. COMPARISON: None. FINDINGS: RIGHT: The right common carotid artery (CCA) peak systolic velocity (PSV) is 90 cm/s. The right internal car otid artery (ICA) PSV is 55 cm/s. The right ICA end-diastolic velocity (EDV) is 9.0 cm/s. The right I CA/CCA PSV ratio is 0.6. The external carotid artery (ECA) PSV is 49 cm/s. There is antegrade flow in the right vertebral artery. LEFT: The left CCA PSV is 91 cm/s. The left ICA PSV is 75 cm/s. The left ICA EDV is 16 cm/s. The left ICA/C CA PSV ratio is 0.8. The ECA PSV is 55 cm/s. There is antegrade flow in the left vertebral artery. IMPRESSION: 1. Less than 50% stenosis in the right internal carotid artery by sonographic criteria. 2. Less than 50% stenosis in the left internal carotid artery by sonographic criteria. Reviewed, dictated and finalized at location A. IMPRESSION: 1. Less than 50% stenosis in the right internal carotid artery by sonographic c mike. 2. Less than 50% stenosis in the left internal carotid artery by sonographic cr sheri.
--- OUTSIDE RECORDS SUMMARY | 2024-05-18 10:52 | XMS_ITS | Continuity of Care Document ---
Author Organization [employer] Address [address] [place] [address] Phone Care Team Providers Care Distance Education Director Name Role Phone Yonatan Deal MD Unavailable Unavailable Allergies, Adverse Reactions, Alerts Substance Reaction Status Criticality metformin Nausea Active No Information ciprofloxacin AUTO PARKER Active No Information Medications Medication Instructions Dosage [...] DIAST BP < 80 MM HG OFFICE [id number] BODY MASS INDEX DOCD SYST BP GE 130 - 139MM HG DIAST BP < 80 MM HG FALL PLAN OF CARE DOC'D URINE INCON PLAN DOC'D PRES/ABSN URINE INCON ASSESS CBC, INC PLATELETS AND DIFFERENTIAL COMPREHEN METABOLIC PANEL CMP 9 LIPID PANEL VITAMIN B12 (SERUM) ROUTINE VENIPUNCTURE [place] OFFICE [id number] BODY MASS INDEX DOCD SYST BP GE 130 - 139MM HG DIAST BP < 80 MM HG Advance Directives Directive Yes / No Effective Date File Name No Information Encounters Encounter Description Practice Location Reason(s) For Visit Diagnoses Date Provider Providers Copied on Encounter [facility], [address], [place], [place], [address] , tel:[phone] [facility] No Information 0 Say Tam. [address] , [address], [place], [place], [address], [place]. tel:[phone] [facility], [address], [place], [place], [address] , [place] tel: [phone] [facility] No Information 0 Say Yonatan. [address], [address], [place], [place], [address], . tel:[phone] [facility], [address], [place], [place], [address] , tel: [phone] [facility] No Information 0 Say Tam. [address], [address], [place], [place], [address], [place]. tel:[phone] [facility], [address], [place], [place], [address] , [place] tel: [phone] [facility] No Information 0 Say Tam. [address], [address], [place], [place], [address], [place]. tel:[phone] [facility], [address], [place], [place], [address] , [place] tel: [phone] [facility] No Information 0 Say Tam. [address], [address], [place], [place], [address], [place]. tel:[phone] [place] [address] [address], [place], [place], [address] , tel: [phone] [facility] Annual Wellness Visit (chief complaint)Enrrique gandhi (chief complaint) Neck painEncounter for general adult medical examination without abnormal findings 0 Say Tam. [address] , [address], [place], [place], [address], [place]. tel:[phone] Referring Provider: Yonatan Deal, [address], [place], [address] . tel:[phone] [facility], [address], [place], [place], [address] , [place] tel: [phone] [facility] No Information 0 Say Tam. [address], [address], [place], [place], [address], [place]. tel:[phone] [facility], [address], [place], [place], [address] , tel: [phone] [facility] No Information 0 Say Tam. [address], [address], [place], [place], [address], [place]. tel:[phone] [facility], [address], [place], [place], [address] , [place] tel: [phone] [facility] No Information 9 Say Tam. [address], [address], [place], [place], [address], [place]. tel:[phone] [facility], [address], [place], [place], [address] , tel: [phone] [facility] No Information Say Yonatan. [address], [address], [place], [place], [address], [place]. tel:[phone] OFFICE [id number]-DN TAILED [facility], [address], [place], [place], [address] , tel: [phone] [facility] ER Follow Up (chief complaint)c ough (chief complaint) Hematoma of scalp, subsequent encounterCoccy dyniaChronic cough Say Tam. [address], [address], [place], [place], [address], [place]. tel:[phone] Referring Provider: Yonatan Deal, [address], [place], [address] . tel:[phone] OFFICE [id number] PANDED [facility], [address], [place], [place], [address] , [place] tel: [phone] [facility] 4 month follow up (chief complaint)C hronic Conditions (chief complaint) Essential (primary) hypertensionAt herosclerotic heart disease of [place] coronary artery without angina pectoris Say Tam. [address] , [address], [place], [place], [address], [place]. tel:[phone] Referring Provider: Yonatan Deal, [address], [place], [address] . tel:[phone] [facility], [address], [place], [place], [address] , tel: [phone] [facility] Essential hypertensionCo ntrolled type 2 diabetes mellitus without complication, without long-term current use of insulin 9 Say Tam. [address], [address], [place], [place], [address], [place]. tel:[phone] [facility], [address], [place], [place], [address] , [place] tel: [phone] [facility] Essential hypertensionFa ce pain 9 Say Tam. [address], [address], [place], [place], [address], [place]. tel:[phone] Referring Provider: Yonatan Deal, [address], [place], [address] . tel:[phone] [facility], [address], [place], [place], [address] , tel: [phone] [facility] Encntr screen mammogram for malignant neoplasm of breast 9 Nemo Blandon. [address], [place], [address], [place]. tel:[phone] [facility], [address], [place], [place], [address] , [place] tel: [phone] [facility] Controlled type 2 diabetes mellitus without complication, without long-term current use of insulinGastroe sophageal reflux disease without esophagitisBen ign hypertension with chronic kidney disease, stage IIIChronic kidney disease, stage 3 (moderate)Anxi etyLumbar disc disease with radiculopathyL eft sided sciaticaPain, foot, left, chronicOther chronic painFamily history of breast cancerLong-ter m use of high-risk medicationAthe rosclerotic heart disease of [place] coronary artery without angina pectorisNeural brent involving scalpImpacted cerumen, right ear 8 Barbosa Tani. [address] [facility] [address], [address], [place], [place], [address]. tel:[phone] Referring Provider: Tani Barbosa, [address] [facility] [address], [place], [address] . tel:[phone] [facility], [address], [place], [place], [address] , tel: [phone] [facility] No Information 8 Say Tam. [address] [facility] [address], [address], [place], [place], [address], [place]. tel:[phone] [facility], [address], [place], [place], [address] , tel: [phone] [facility] No Information 8 Familia Freire. [address] [facility] [address], [address], [place], [place], [address]. tel:[phone] [facility], [address], [place], [place], [address] , tel: [phone] [facility] Controlled type 2 diabetes mellitus without complication, without long-term current use of insulinSciatic a of left sideLumbar disc disease with radiculopathyG astroesophagea l reflux disease without esophagitisFat igue, unspecified typeBenign hypertension with chronic kidney disease, stage IIIChronic kidney disease, stage 3 (moderate)Anxi etyAtheroscler otic heart disease of [place] coronary artery without angina pectoris 8 Familia Freire. [address] [facility], [address], [place], [place], [address]. tel:[phone] Referring Provider: Tani Barbosa, [address] [facility] [address], [place], [address] . tel:[phone] [facility], [address], [place], [place], [address] , tel: [phone] [facility] Controlled type 2 diabetes mellitus without complication, without long-term current use of insulinHyperli pidemia, unspecifiedOst eoarthritis of lumbosacral spine with radiculopathyS ciatica of left sideLumbar disc disease with radiculopathyG astroesophagea l reflux disease without esophagitisFat igue, unspecified typeBenign hypertension with chronic kidney disease, stage IIIChronic kidney disease, stage 3 (moderate)Anxi ety 8 Familia Tani. [address], [address], [place], [place], [address]. tel:[phone] Referring Provider: Tani Barbosa, [address] [facility] [address], [place], [address] . tel:[phone] [facility] [employer], [address], [place], [place], [address] , [place] tel: [phone] [facility] Controlled type 2 diabetes mellitus without complication, without long-term current use of insulinHyperli pidemia, unspecifiedSci atica of left sideOsteoarthr itis of lumbosacral spine with radiculopathyL umbar disc disease with radiculopathyG astroesophagea l reflux disease without esophagitisFat igue, unspecified typeGeneralize d anxiety disorder Familia Freire. [address], [address], [place], [place], [address]. tel:[phone] Referring Provider: Tani Barbosa, [address], [place], [address] . tel:[phone] [facility], [address], [place], [place], [address] , [place] tel: [phone] [facility] No Information 7 Familia Freire. [address], [address], [place], [place], [address]. tel:[phone] Referring Provider: Tani Barbosa, [address], [place], [address] . tel:[phone] [facility], [address], [place], [place], [address] , [place] tel: [phone] [facility] Essential (primary) hypertensionCo ntrolled type 2 diabetes mellitus without complication, without long-term current use of insulinSciatic a of left sideOsteoarthr itis of lumbosacral spine with radiculopathyL umbar disc disease with radiculopathyG astroesophagea l reflux disease without esophagitisHyp erlipidemia, unspecifiedAth erosclerotic heart disease of [place] coronary artery without angina pectorisGenera lized anxiety disorderFatigu e, unspecified type 7 Familia Freire. [address], [address], [place], [place], [address]. tel:[phone] Referring Provider: Tani Barbosa, [address] [facility] [address], [place], [address] . tel:[phone] [facility], [address], [place], [place], [address] , tel: [phone] [facility] Essential (primary) hypertensionSc iatica of left sideUnspecifie d osteoarthritis , unspecified siteOsteoarthr itis of lumbosacral spine with radiculopathyA therosclerotic heart disease of [place] coronary artery without angina pectorisHyperl ipidemia, unspecifiedGas troesophageal reflux disease without esophagitisCon trolled type 2 diabetes mellitus without complication, without long-term current use of insulin 7 Familia Freire. [address], [address], [place], [place], [address]. tel:[phone] Referring Provider: Tani Barbosa, [address], [place], [address] . tel:[phone] [facility], [address], [place], [place], [address] , tel: [phone] [facility] Type 2 diabetes mellitus without complicationsH yperlipidemia, unspecifiedGas tro-esophageal reflux disease without esophagitisCor onary artery disease involving [place] coronary artery of [place] heart without angina pectorisLumbar disc disease with radiculopathyO steoarthritis of lumbosacral spine with radiculopathy Sep- 6 Familia Freire. [address], [address], [place], [place], [address]. tel:[phone] Referring Provider: Tani Barboas, [address], [place], [address] . tel:[phone] [facility], [address], [place], [place], [address] , tel: [phone] [facility] Sciatica of left side 6 Familia Freire. [address], [address], [place], [place], [address]. tel:[phone] [facility], [address], [place], [place], [address] , [place] tel: [phone] [facility] Left sided sciaticaHyperl ipidemia, unspecifiedEss ential (primary) hypertensionTy pe 2 diabetes mellitus without complicationsU nspecified osteoarthritis , unspecified siteOther intervertebral disc disorders, lumbosacral regionGastro-e sophageal reflux disease without esophagitisChr onic ischemic heart disease, unspecified 6 Familia Freire. [address] , [address], [place], [place], [address]. tel:[phone] Referring Provider: Tani Barbosa, [address], [place], [address] . tel:[phone] [facility], [address], [place], [place], [address] , [place] tel: [phone] [facility] Low back pain with left-sided sciatica, unspecified back pain lateralityPelv ic pain syndromeLeft hip pain 6 Familia Freire. [address] , [address], [place], [place], [address]. tel:[phone] [facility], [address], [place], [place], [address] , [place] tel: [phone] [facility] Left sided sciatica 0 6 Familia Freire. [address] , [address], [place], [place], [address]. tel:[phone] [facility] [address], [place], [place], [address] , tel: [phone] [facility] Encounter for immunizationEs sential (primary) hypertensionHy perlipidemia, unspecifiedUns pecified osteoarthritis , unspecified siteType 2 diabetes mellitus without complicationsS ciatica, unspecified side 6 Familia Freire. [address] [facility], [address], [place], [place], [address]. tel:[phone] Referring Provider: Tani Barbosa, [address] [facility] [address], [place], [address] . tel:[phone] [facility], [address], [place], [place], [address] , tel: [phone] [facility] Anemia 5 Familia Freire. [address] [facility], [address], [place], [place], [address]. tel:[phone] Referring Provider: Tani Barbosa, [address] [facility] [address], [address] . tel:[phone] [facility], [address], [place], [place], [address] , tel: [phone] [facility] Nausea 5 Familia Freire. [address] [facility], [address], [place], [place], [address]. tel:[phone] [facility] [address], [place], [place], [address] , tel: [phone] [facility] DM w/o complication type IIAnemiaHyperl ipidemiaOsteoa rthritisHypert ensionCAD (coronary artery disease) 5 Familia Freire. [address] [facility], [address], [place], [place], [address]. tel:[phone] Referring Provider: Tani Barbosa, [address] [facility] [address], [place], [address] . tel:[phone] [facility] [employer], [address], [place], [place], [address] , tel: [phone] [facility] Abdominal pain, vomiting, and diarrheaVomiti ng aloneDiarrhea 5 Barbosanolan Freire. [address], [address], [place], [place], [address]. tel:[phone] [facility] [employer], [address], [place], [place], [address] , [place] tel: [phone] [facility] Hyperlipidemia HypertensionGl ucose intolerance (pre-diabetes) 5 Barbosanolan Freire. [address], [address], [place], [place], [address]. tel:[phone] Referring Provider: Tani Barbosa, [address] [facility] [address], [place], [address] . tel:[phone] [facility], [address], [place], [place], [address] , tel: [phone] [facility] Glucose intolerance (pre-diabetes) Hyperlipidemia Hypertension 5 Barbosanolan Freire. [address], [address], [place], [place], [address]. [phone] [facility], [address], [place], [place], [address] , tel: [phone] [facility] Other and unspecified disc disorder of lumbar region 0 5 Barbosa Tani. [address], [address], [place], [place], [address]. [phone] [facility], [address], [place], [place], [address] , tel: [phone] [facility] ABDMNAL PAIN GENERALIZEDGlu cose intolerance (pre-diabetes) Hyperlipidemia 0 5 Barbosanolan Freire. [address], [address], [place], [place], [address]. tel:[phone] Referring Provider: Tani Barbosa, [address], [place], [address] . tel:[phone] [facility] [address], [place], [place], [address] , tel: [phone] [facility] ABDMNAL PAIN GENERALIZED Feb-0 2-201 5 Familia Freire. [address] , [address], [place], [place], [address]. [phone] Referring Provider: Tani Barbosa, [address], [place], [address] . tel:[phone] [facility] [address], [place], [place], [address] , tel: [phone] [facility] Sciatica of left sideGeneralize d osteoarthritis Left foot painCAD (coronary artery disease)Lumbar disc diseaseCervica l disc diseaseGlucose intolerance (pre-diabetes) Hyperlipidemia GERD (gastroesophag eal reflux disease)Jaw pain, non-TMJMenopau timothy sweatsTinea corporis Jan- 4 Familia Freire. [address] , [address], [place], [place], [address]. tel:[phone] Referring Provider: Tani Babrosa, [address], [place], [address] . tel:[phone] [facility] [address], [place], [place], [address] , tel: [phone] [facility] Backache Jan- 4 Familia Freire. [address], [address], [place], [place], [address]. [phone] [facility] [address], [place], [place], [address] , tel: [phone] [facility] Low back pain Jan- 4 Familia Freire. [address] , [address], [place], [place], [address]. tel:[phone] [facility] [address], [place], [place], [address] , tel: [phone] [facility] Hyperlipidemia HypertensionGE RD (gastroesophag eal reflux disease)Osteoa rthritisGlucos e intolerance (pre-diabetes) CAD (coronary artery disease) 4 Familia Freire. [address] [facility], [address], [place], [place], [address]. tel:[phone] Referring Provider: Tani Barbosa, [address] [facility] [address], [place], [address] . tel:[phone] [facility] [address], [place], [place], [address] , tel: [phone] [facility] Hyperlipidemia Generalized osteoarthritis HypertensionGl ucose intolerance (pre-diabetes) Low back painCoronary artery atheromaFoot pain 4 Familia Ferire. [address] [facility], [address], [place], [place], [address]. tel:[phone] Referring Provider: Tani Barbosa, [address] [facility] [address], [place], [address] . tel:[phone] [facility] [address], [place], [place], [address] , tel: [phone] [facility] HypertensionGE RD (gastroesophag eal reflux disease)Hyperl ipidemiaGlucos e intolerance (pre-diabetes) 4 Familia Freire. [address] [facility], [address], [place], [place], [address]. tel:[phone] Referring Provider: Tani Barbosa, [address] [facility] [address], [place], [address] . tel:[phone] [facility] [address], [place], [place], [address] , tel: [phone] [facility] History of fall/At Risk For FallingHyperte nsionHyperlipi demiaGERD (gastroesophag eal reflux disease)Sciati caGeneralized osteoarthritis Neck painHeadacheCo stochondritis 4 Familia Freire. [address] [facility], [address], [place], [place], [address]. tel:[phone] Referring Provider: Tani Barbosa, [address] [facility] [address], [place], [address] . tel:[phone] [facility] [address], [place], [place], [address] , tel: [phone] [facility] No Information 3 Familia Freire. [address] [facility], [address], [place], [place], [address]. tel:[phone] Referring Provider: Tani Barbosa, [address] [facility] [address], [place], [address] . tel:[phone] [facility] [address], [place], [place], [address] , tel: [phone] [facility] IMPAIRED FASTING GLUCOSEHyperca lcemiaOther and unspecified hyperlipidemia 3 Familia Freire. [address] [facility], [address], [place], [place], [address]. tel:[phone] Referring Provider: Tani Barbosa, [address] [facility] [address], [place], [address] . tel:[phone] [facility] [address], [place], [place], [address] , tel: [phone] [facility] Hyperlipidemia IMPAIRED FASTING GLUCOSEHyperca lcemia 3 Familia Freire. [address] [facility], [address], [place], [place], [address]. [phone] [facility] [address], [place], [place], [address] , tel: [phone] [facility] SciaticaGenera lized osteoarthritis Cervical radiculopathyG ERD (gastroesophag eal reflux disease)Hyperl ipidemiaHypert ension 3 Familia Freire. [address] [facility], [address], [place], [place], [address]. tel:[phone] Referring Provider: Tani Barbosa, [address] [facility] [address], [place], [address] . tel:[phone] [facility] [address], [place], [place], [address] , tel: [phone] [facility] Cervical radiculopathy 2 Familia Freire. [address] [facility], [address], [place], [place], [address]. tel:[phone] Referring Provider: Tani Barbosa, [address] [facility] [address], [place], [address] . tel:[phone] [facility] [address], [place], [place], [address] , tel: [phone] [facility] HypertensionHy perlipidemiaCo ronary artery atheromaLow back painScoliosisG ERD (gastroesophag eal reflux disease)Other abnormal glucose 2 Familia Freire. [address] [facility], [address], [place], [place], [address]. tel:[phone] Referring Provider: Tani Barbosa, [address] [facility] [address], [place], [address] . tel:[phone] [facility] [address], [place], [place], [address] , tel:[phone] [facility] GERD (gastroesophag eal reflux disease)Left foot painHyperlipid emiaHypertensi onOther and unspecified disc disorder of lumbar region 2 Familia Freire. [address] [facility], [address], [place], [place], [address]. tel:[phone] Referring Provider: Tani Barbosa, [address] [facility] [address], [place], [address] . tel:[phone] [facility] [address], [place], [place], [address] , tel: [phone] [facility] Impacted cerumenNeuralg ia, neuritis, and radiculitis, unspecified 2 Familia Freire. [address] [facility], [address], [place], [place], [address]. tel:[phone] Referring Provider: Tani Barbosa, [address] [facility] [address], [place], [address] . tel:[phone] [facility] [address], [place], [place], [address] , tel: [phone] [facility] ConstipationOs teoarthrosis, generalized, involving multiple sitesLumbosacr al spondylosis without myelopathyAnxi ety state, unspecifiedSci atica 1 Familia Freire. [address] [facility], [address], [place], [place], [address]. tel:[phone] Referring Provider: Tani Barbosa, [address] [facility] [address], [place], [address] . tel:[phone] [facility] [address], [place], [place], [address] , tel: [phone] [facility] No Information 1 Familia Freire. [address] [facility], [address], [place], [place], [address]. tel:[phone] Referring Provider: Tani Barbosa, [address] [facility] [address], [place], [address] . tel:[phone] [facility] [address], [place], [place], [address] , tel: [phone] [facility] HYPERLIPIDEMIA NEC/NOSHYPERTE NSION NOS 1 Familia Freire. [address] [facility], [address], [place], [place], [address]. tel:[phone] [place] [address], [address], [place], [id number] , [place] tel:[phone] [facility] GENERAL OSTEOARTHROSIS ESOPHAGEAL REFLUX June-0 6-201 1 Trame Jon. [address] [facility], [address], [place], [place], [address]. tel:[phone] [facility], [address], [place], [place], [address] , [place] tel: [phone] [facility] LUMBOSACRAL SPONDYLOSISFAM NICO HX-BREAST MALIG Nov-0 3-201 0 Barbosa Tani. [address] [facility], [address], [place], [place], [address]. tel:[phone] [place] [address], [address], [place], [place], [address] , tel: [phone] [facility] MYALGIA AND MYOSITIS NOS 5-201 0 Barbosa Tani. [address] [facility], [address], [place], [place], [address]. tel:[phone] [facility], [address], [place], [place], [address] , [place] tel: [phone] [facility] LUMBAGO June-2 5-201 0 Barbosa Tani. [address] [facility], [address], [place], [place], [address]. tel:[phone] [facility], [address], [place], [place], [address] , [place] tel:[phone] [facility] GENERAL OSTEOARTHROSIS BACKACHE NOS 7-201 0 Barbosa Tani. [address] [facility], [address], [place], [place], [address]. tel:[phone] [facility], [address], [place], [place], [address] , [place] tel:[phone] [facility] AORTIC ATHEROSCLEROSI SCHR ISCHEMIC HRT DIS NOS 8-200 9 Barbosa Tani. [address] [facility], [address], [place], [place], [address]. tel:[phone] [facility], [address], [place], [place], [address] , tel: [phone] [facility] CHEST PAIN NOSIRRITABLE BOWEL SYNDROME 9 [facility]. [address] [facility], [address], [place], [place], [address]. tel:[phone] [facility], [address], [place], [place], [address] , [place] tel: [phone] [facility] VACCIN FOR INFLUENZA 9 Barbosa Tani. [address] [facility], [address], [place], [place], [address]. tel:[phone] [place] [address], [address], [place], [place], [address] , tel: [phone] [facility] IMPAIRED FASTING GLUCOSE 9 Barbosa Tani. [address] [facility], [address], [place], [place], [address]. tel:[phone] [place] [address], [address], [place], [place], [address] , [place] tel: [phone] [facility] LONG-TERM USE MEDS NECDVRTCLI COLON W/O HMRHG 9 [facility]. [address] [facility], [address], [address]. tel:[phone] [place] [address], [address], [place], [place], [address] , [place] tel: [phone] [facility] No Information 9 Barobsa Tani. [address] [facility], [address], [place], [place], [address]. tel:[phone] [place] [address], [address], [place], [place], [address] , tel: [phone] [facility] COUGH 200 9 Barbosa Tani. [address] [facility], [address], [place], [place], [address]. tel:[phone] [facility], [address], [place], [place], [address] , [place] tel: [phone] [facility] ABDMNAL PAIN GENERALIZED 0 9 Trame Jon. [address] [facility], [address], [place], [place], [address]. tel:[phone] [facility], [address], [place], [place], [address] , [place] tel:[phone] [facility] DISC DIS NEC/NOS-LUMBAR TMJ SOUNDS OPN/CLOSE JAW 8 Barbosa Tani. [address] [facility], [address], [place], [place], [address]. tel:[phone] [facility], [address], [place], [place], [address] , [place] tel: [phone] [facility] PLANTAR FIBROMATOSISMA LAISE AND FATIGUE NEC 8 Trame Hackberry. [address] [facility], [address], [place], [place], [address]. tel:[phone] [facility], [address], [place], [place], [address] , [place] tel: [phone] [facility] IMPACTED CERUMENFASCIIT IS NOSCHR KIDNEY DIS STAGE IIIBEN HY KID W CR KID I-IV 8 Barbosa Tani. [address] [facility], [address], [place], [place], [address]. tel:[phone] [facility], [address], [place], [place], [address] , [place] tel: [phone] [facility] CHR SEROUS OM SIMP/NOSAC SEROUS OTITIS MEDIAORGANIC INSOMNIA NOS 8200 8 Barbosa Tani. [address] [facility], [address], [place], [place], [address]. tel:[phone] [facility], [address], [place], [place], [address] , [place] tel:[phone] [facility] TIETZE'S DISEASECELLULI TIS, TOE NOS Nov-2 4-200 7 Barbosa Tani. [address] [facility], [address], [place], [place], [address]. tel:[phone] [facility], [address], [place], [place], [address] , [place] tel: [phone] [facility] CATARACT NOSRECUR UNILAT INGUIN RADHA Aguila-2 0-200 7 Barbosa Tani. [address] [facility], [address], [place], [place], [address]. tel:[phone] [facility], [address], [place], [place], [address] , [place] tel: [phone] [facility] BLISTER FOOT & TOE-INFEC Fe-0 5-200 7 Barbosa Tani. [address] [facility], [address], [place], [place], [address]. 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 [address] [facility], [address], [place], [place], [address]. tel:[phone] [facility], [address], [place], [place], [address] , [place] tel: [phone] [facility] DEPRESSIVE DISORDER NEC Sep-1 0-200 6 Barbosa Tani. [address] [facility], [address], [place], [place], [address]. tel:[phone] [facility], [address], [place], [place], [address] , [place] tel:[phone] [facility] TMJ DISORDERS NOSGLOSSODYNIA Fe- 6-200 6 Barbosa Tani. [address] [facility], [address], [place], [place], [address]. tel:[phone] [facility], [address], [place], [place], [address] , [place] tel:[phone] [facility] OLECRANON BURSITISMULTIP LE CONTUSIONS NECFALL FROM SLIPPING NECACCIDENT IN HOME 3-200 5 Barbosa Tani. [address] [facility], [address], [place], [place], [address]. tel:[phone] [facility], [address], [place], [place], [address] , [place] tel:[phone] [facility] EDEMA 3-200 5 Barbosa Tani. [address] [facility], [address], [place], [place], [address]. tel:[phone] [facility], [address], [place], [place], [address] , [place] tel:[phone] [facility] PAIN IN LIMB 3200 5 Trame Jon. [address] [facility], [address], [place], [place], [address]. tel:[phone] [facility], [address], [place], [place], [address] , [place] tel:[phone] [facility] ABN BLOOD CHEMISTRY NEC 3-200 4 Barbosa Tani. [address] [facility], [address], [place], [place], [address]. tel:[phone] [facility], [address], [place], [place], [address] , [place] tel:[phone] [facility] VACCINATION FOR TD-DT 5200 4 Barbosa Tani. [address] [facility], [address], [place], [place], [address]. tel:[phone] [facility], [address], [place], [place], [address] , [place] tel:[phone] [facility] ANXIETY STATE NOS 7-200 4 Barbosa Tani. [address] [facility], [address], [place], [place], [address]. tel:[phone] [facility], [address], [place], [place], [address] , tel: [phone] [facility] IDIO PERIPH NEURPTHY NEC 0-200 4 Barbosa Tani. [address] , [address], [place], [place], [address]. tel:[phone] [facility], [address], [place], [place], [address] , tel: [phone] [facility] HORMONE REPLACE POSTMENO 7-200 2 Conversion Doctor. [address] [facility], [place], [address], . [facility], [address], [place], [place], [address] , tel: [phone] [facility] FAM HX-DIABETES MELLITUSSKIN SENSATION DISTURBHAIR DISEASES NEC 3-200 1 Barbosanolan Freire. [address] , [address], [place], [place], [address]. tel:[phone] [facility], [address], [place], [place], [address] , tel: [phone] [facility] CONSTIPATION 0-200 0 Trame Jon. [address] , [address], [place], [place], [address]. tel:[phone] Family History Family Member Type Diagnosis Age At Onset Family h/o Problem (finding) FAMILY HISTORY BREAST C ANCER Problem (finding) Family history of coronary arteriosclerosis Problem (finding) Family history of rheum atoid arthritis Problem (finding) Family history of peria rteritis nodosa Problem (finding) Myocardial infarction Brother Problem (finding) prostate cancer Family h/o Problem (finding) DIABETES MELLITUS Father Problem (finding) sudden Sister Problem (finding) malignant neop lasm of breast in first degree relative 62 Immunizations Vaccine Date Status Comments Fluzone High-Dose, [...] New Imm unization Record Fluzone administered Note: [facility] [id number] ; Source: New Immunization Record Fluzone administered Source: New Imm unization Record Zoster administered Source: Other P rovider Payers Payer name Insurance type Covered republican ID Authoriza tion(s) [place] [id number] [place] [id number] [place] [id number] [place] [id number] [place] [id number] [place] [id number] [place] [id number] [place] [id number] [place] [id number] [place] [id number] [place] [id number] [place] [id number] Social History Type Description Quantity Date Captured Comments Sex Female Smoking Status No Information Chief Complaint And Reason For Visit No Information Reason For Referral Reason For Referral No Information Plan Of Treatment Date Type Action Status Referral Ordered: XR cervical spine, 2 views ordered Referral Referred To: [facility] [address] [place], [id number] Ordered: Chest x-ray, PA and lateral ordered [...] Here for a priyao w up from [facility] on 09/30/18 for a scalp hematoma. 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
--- OUTSIDE RECORDS SUMMARY | 2024-05-18 10:53 | XMS_ITS | Encounter Summary ---
Author Organization [facility] Address [address] [place] [address] Care Team Providers Care Engraver Rubber Name Role Phone Clarice Cazares MD Primary Care Provider [phone] Encounter Details Date Type Department Care Team (Late st Contact Info) Description 08/24/2019 Abstract [facility] [address] [place] [address] Abstract, Doc [facility] Social History [...] Result * TSH (OUTSIDE LAB) (07/09/2019) Pathologist [facility] TSH 0.78 07/09/2019 Result Latrice Cazares MD LAB-OUTSIDE/ABSTRACTED Final Result * CK (CPK) (07/09/2019) Pathologist [facility] CPK 94 07/09/2019 Result [facility] us Clarice Cazares MD LABORATORY Final Result * VITAMIN D, 25 OH (07/09/2019) [facility] VITAMIN D 25 HYDROXY S/P/B 39 07/09/2019 Result Latrice Cazares MD LABORATORY Final Result * (ABNORMAL) CMP (ABSTRACTED LAB) (07/09/2019) [facility] SODIUM S/P/B 136 POTASSIUM S/P/B [...] LAB-OUTSIDE/ABSTRACTED Final Result * LIPID PANEL (07/09/2019) [facility] CHOLESTEROL 151 HDL 42 TRIGLYCERIDES 270 NON HDL CHOLESTEROL 109 CHOL/HDL RATIO 3.6 LDL (CALCULATED) 73 07/09/2019 Result Latrice Cazares MD LABORATORY Final Result documented in this encounter Visit Diagnoses Not on filedocumented in this encounter Care Teams Engraver Rubber Relationship Specialty Start Date End Date Clarice Cazares MD [address] [place] [address] PCP - General INTERNAL MEDICINE 08/17/19 documented as of this encounter
--- OUTSIDE RECORDS SUMMARY | 2024-05-18 10:53 | XMS_ITS | Clinical Summary ---
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
--- OUTSIDE RECORDS SUMMARY | 2024-05-18 10:53 | XMS_ITS | Encounter Summary ---
Author Organization [facility] Address [address] [place] [address] Care Team Providers Care Bumper Straightener Name Role Phone Clarice Cazares MD Primary Care Provider [phone] Reason for Referral * Surgical (Routine) - Closed Specialty Diagnoses / Procedures Referred By Contac t Referred To Contact Procedures Case request operating room: BLOCK MEDIAL BRANCH CERVICAL c456 Alyssia Brown MD Three [facility] [address] [place] [address] Phone: tel: fax: Referral ID Status Reason Start Date Expiration Date Visits Re quested Visits Authorized [id number] Closed 09/26/2020 10/27/2021 1 1 * Surgical (Routine) - Closed Specialty Diagnoses / Procedures Referred By Contac t Referred To Contact Procedures Case request operating room: INJECTION EPIDURAL STEROID CERVICAL C4-5 Carla Infante APNP Phone: tel: fax: Referral ID Status Reason Start Date Expiration Date Visits Re quested Visits Authorized [id number] Closed 06/06/2020 07/06/2021 1 1 Encounter Details Date Type Department Care Team (Late st [facility] Info) Description 06/06/2020 Prep for Procedure [facility] Inter[facility] Management Center [address] [facility] 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
== END 2024-05-18 09:59 | disposition home or self-care (01) ==
PROVIDERS: PCP Internal Medicine; Visit Provider Internal Medicine
DX: R09.89 Other specified symptoms and signs involving the circulatory and respiratory systems (principal); I65.23 Occlusion and stenosis of bilateral carotid arteries
CPT/HCPCS: 93880

== ENCOUNTER 2024-05-29 10:58 | Outpatient (CLI) | payer MEDICARE, SELFPAY ==
--- OUTSIDE RECORDS SUMMARY | 2024-05-29 11:01 | XMS_ITS | Encounter Summary ---
Author Organization [facility] Address [address] [place] [address] Care Team Providers Care Wallboard Worker Name Role Phone Clarice Cazares MD Primary Care Provider [phone] Reason for Referral * Surgical (Routine) - Closed Specialty Diagnoses / Procedures Referred By Contac t Referred To Contact Procedures Case request operating room: BLOCK MEDIAL BRANCH CERVICAL c456 Alyssia Brown MD Three [facility] [address] [place] [address] Phone: tel: fax: Referral ID Status Reason Start Date Expiration Date Visits Re quested Visits Authorized [id number] Closed 09/26/2020 10/27/2021 1 1 * Surgical (Routine) - Closed Specialty Diagnoses / Procedures Referred By Contac t Referred To Contact Procedures Case request operating room: INJECTION EPIDURAL STEROID CERVICAL C4-5 Carla Infante APNP Phone: tel: fax: Referral ID Status Reason Start Date Expiration Date Visits Re quested Visits Authorized [id number] Closed 06/06/2020 07/06/2021 1 1 Encounter Details Date Type Department Care Team (Late st [facility] Info) Description 06/06/2020 Prep for Procedure [facility] Inter[facility] Management Center [address] [facility] [place] [address] [id number] Carla Infante APNP [address] [place] [phone] Social History Tobacco Use Types Packs/Day Years [...] 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
--- OUTSIDE RECORDS SUMMARY | 2024-05-29 11:01 | XMS_ITS | Continuity of Care Document ---
Author Organization [employer] Address [address] [place] [address] Phone Care Team Providers Care Heater Installer Name Role Phone Yonatan Deal MD Unavailable Unavailable Allergies, Adverse Reactions, Alerts Substance Reaction Status Criticality metformin Nausea Active No Information ciprofloxacin WOUND CARE RN Active No Information Medications Medication Instructions Dosage [...] DIAST BP < 80 MM HG OFFICE [id number] BODY MASS INDEX DOCD SYST BP GE 130 - 139MM HG DIAST BP < 80 MM HG FALL PLAN OF CARE DOC'D URINE INCON PLAN DOC'D PRES/ABSN URINE INCON ASSESS CBC, INC PLATELETS AND DIFFERENTIAL COMPREHEN METABOLIC PANEL CMP 9 LIPID PANEL VITAMIN B12 (SERUM) ROUTINE VENIPUNCTURE [place] OFFICE MERIY-GRP-GSWSOENA BODY MASS INDEX DOCD SYST BP GE 130 - 139MM HG DIAST BP < 80 MM HG Advance Directives Directive Yes / No Effective Date File Name No Information Encounters Encounter Description Practice Location Reason(s) For Visit Diagnoses Date Provider Providers Copied on Encounter [facility], [address], [place], [place], [address] , tel:[phone] [facility] No Information 0 Say Tam. [address] , [address], [place], [place], [address], [place]. tel:[phone] [facility], [address], [place], [place], [address] , [place] tel: [phone] [facility] No Information 0 Say Yonatan. [address], [address], [place], [place], [address], . tel:[phone] [facility], [address], [place], [place], [address] , tel: [phone] [facility] No Information 0 Say Tam. [address], [address], [place], [place], [address], [place]. tel:[phone] [facility], [address], [place], [place], [address] , [place] tel: [phone] [facility] No Information 0 Say Tam. [address], [address], [place], [place], [address], [place]. tel:[phone] [facility], [address], [place], [place], [address] , [place] tel: [phone] [facility] No Information 0 Say Tam. [address], [address], [place], [place], [address], [place]. tel:[phone] [place] [address] [address], [place], [place], [address] , tel: [phone] [facility] Annual Wellness Visit (chief complaint)Enrrique gandhi (chief complaint) Neck painEncounter for general adult medical examination without abnormal findings 0 Say Tam. [address] , [address], [place], [place], [address], [place]. tel:[phone] Referring Provider: Yonatan Deal, [address], [place], [address] . tel:[phone] [facility], [address], [place], [place], [address] , [place] tel: [phone] [facility] No Information 0 Say Tam. [address], [address], [place], [place], [address], [place]. tel:[phone] [facility], [address], [place], [place], [address] , tel: [phone] [facility] No Information 0 aSy Tam. [address], [address], [place], [place], [address], [place]. tel:[phone] [facility], [address], [place], [place], [address] , [place] tel: [phone] [facility] No Information 9 Say Tam. [address], [address], [place], [place], [address], [place]. tel:[phone] [facility], [address], [place], [place], [address] , tel: [phone] [facility] No Information Say Yonatan. [address], [address], [place], [place], [address], [place]. tel:[phone] OFFICE EMRCN-PYP-HR TAILED [facility], [address], [place], [place], [address] , tel: [phone] [facility] Follow Up (chief complaint)c ough (chief complaint) Hematoma of scalp, subsequent encounterCoccy dyniaChronic cough Say Tam. [address], [address], [place], [place], [address], [place]. tel:[phone] Referring Provider: Yonatan Deal, [address], [place], [address] . tel:[phone] OFFICE HGQGB-OUP-GO PANDED [facility], [address], [place], [place], [address] , [place] tel: [phone] [facility] 4 month follow up (chief complaint)C hronic Conditions (chief complaint) Essential (primary) hypertensionAt herosclerotic heart disease of [place] coronary artery without angina pectoris Say Tam. [address] , [address], [place], [place], [address], [place]. tel:[phone] Referring Provider: Yonatan Deal, [address], [place], [address] . tel:[phone] [facility], [address], [place], [place], [address] , tel: [phone] [facility] Essential hypertensionCo ntrolled type 2 diabetes mellitus without complication, without long-term current use of insulin 9 Say Tam. [address], [address], [place], [place], [address], [place]. tel:[phone] [facility], [address], [place], [place], [address] , [place] tel: [phone] [facility] Essential hypertensionFa ce pain 9 Say Tam. [address], [address], [place], [place], [address], [place]. tel:[phone] Referring Provider: Yonatan Deal, [address], [place], [address] . tel:[phone] [facility], [address], [place], [place], [address] , tel: [phone] [facility] Encntr screen mammogram for malignant neoplasm of breast 9 Nemo Blandon. [address], [place], [address], [place]. tel:[phone] [facility], [address], [place], [place], [address] , [place] tel: [phone] [facility] Controlled type 2 diabetes mellitus without complication, without long-term current use of insulinGastroe sophageal reflux disease without esophagitisBen ign hypertension with chronic kidney disease, stage IIIChronic kidney disease, stage 3 (moderate)Anxi etyLumbar disc disease with radiculopathyL eft sided sciaticaPain, foot, left, chronicOther chronic painFamily history of breast cancerLong-ter m use of high-risk medicationAthe rosclerotic heart disease of [place] coronary artery without angina pectorisNeural brent involving scalpImpacted cerumen, right ear 8 Barbosa Tani. [address] [facility] [address], [place], [place], [address]. tel:[phone] Referring Provider: Tani Barbosa, [address] [facility] [address], [place], [address] . tel:[phone] [facility], [address], [place], [place], [address] , tel: [phone] [facility] No Information 8 Say Tam. [address] [facility] [address], [address], [place], [place], [address], [place]. tel:[phone] [facility], [address], [place], [place], [address] , tel: [phone] [facility] No Information 8 Familia Freire. [address] [facility] [address], [address], [place], [place], [address]. tel:[phone] [facility], [address], [place], [place], [address] , tel: [phone] [facility] Controlled type 2 diabetes mellitus without complication, without long-term current use of insulinSciatic a of left sideLumbar disc disease with radiculopathyG astroesophagea l reflux disease without esophagitisFat igue, unspecified typeBenign hypertension with chronic kidney disease, stage IIIChronic kidney disease, stage 3 (moderate)Anxi etyAtheroscler otic heart disease of [place] coronary artery without angina pectoris 8 Familia Freire. [address] [facility], [address], [place], [place], [address]. tel:[phone] Referring Provider: Tani Barbosa, [address] [facility] [address], [place], [address] . tel:[phone] [facility], [address], [place], [place], [address] , tel: [phone] [facility] Controlled type 2 diabetes mellitus without complication, without long-term current use of insulinHyperli pidemia, unspecifiedOst eoarthritis of lumbosacral spine with radiculopathyS ciatica of left sideLumbar disc disease with radiculopathyG astroesophagea l reflux disease without esophagitisFat igue, unspecified typeBenign hypertension with chronic kidney disease, stage IIIChronic kidney disease, stage 3 (moderate)Anxi ety 8 Familia Tani. [address], [address], [place], [place], [address]. tel:[phone] Referring Provider: Tani Barbosa, [address] [facility] [address], [place], [address] . tel:[phone] [employer] [address], [place], [place], [address] , [place] tel: [phone] [facility] Controlled type 2 diabetes mellitus without complication, without long-term current use of insulinHyperli pidemia, unspecifiedSci atica of left sideOsteoarthr itis of lumbosacral spine with radiculopathyL umbar disc disease with radiculopathyG astroesophagea l reflux disease without esophagitisFat igue, unspecified typeGeneralize d anxiety disorder Familia Freire. [address], [address], [place], [place], [address]. tel:[phone] Referring Provider: Tani Barbosa, [address], [place], [address] . tel:[phone] [facility], [address], [place], [place], [address] , [place] tel: [phone] [facility] No Information 7 Familia Freire. [address], [address], [place], [place], [address]. tel:[phone] Referring Provider: Tani Barbosa, [address], [place], [address] . tel:[phone] [facility], [address], [place], [place], [address] , [place] tel: [phone] [facility] Essential (primary) hypertensionCo ntrolled type 2 diabetes mellitus without complication, without long-term current use of insulinSciatic a of left sideOsteoarthr itis of lumbosacral spine with radiculopathyL umbar disc disease with radiculopathyG astroesophagea l reflux disease without esophagitisHyp erlipidemia, unspecifiedAth erosclerotic heart disease of [place] coronary artery without angina pectorisGenera lized anxiety disorderFatigu e, unspecified type 7 Familia Freire. [address], [address], [place], [place], [address]. tel:[phone] Referring Provider: Tani Barbosa, [address] [facility] [address], [place], [address] . tel:[phone] [facility], [address], [place], [place], [address] , tel: [phone] [facility] Essential (primary) hypertensionSc iatica of left sideUnspecifie d osteoarthritis , unspecified siteOsteoarthr itis of lumbosacral spine with radiculopathyA therosclerotic heart disease of [place] coronary artery without angina pectorisHyperl ipidemia, unspecifiedGas troesophageal reflux disease without esophagitisCon trolled type 2 diabetes mellitus without complication, without long-term current use of insulin 7 Familia Freire. [address], [address], [place], [place], [address]. tel:[phone] Referring Provider: Tani Barbosa, [address], [place], [address] . tel:[phone] [facility], [address], [place], [place], [address] , tel: [phone] [facility] Type 2 diabetes mellitus without complicationsH yperlipidemia, unspecifiedGas tro-esophageal reflux disease without esophagitisCor onary artery disease involving [place] coronary artery of [place] heart without angina pectorisLumbar disc disease with radiculopathyO steoarthritis of lumbosacral spine with radiculopathy Sep- 6 Familia Freire. [address], [address], [place], [place], [address]. tel:[phone] Referring Provider: Tani Barbosa, [address], [place], [address] . tel:[phone] [facility], [address], [place], [place], [address] , tel: [phone] [facility] Sciatica of left side 6 Familia Freire. [address], [address], [place], [place], [address]. tel:[phone] [facility], [address], [place], [place], [address] , [place] tel: [phone] [facility] Left sided sciaticaHyperl ipidemia, unspecifiedEss ential (primary) hypertensionTy pe 2 diabetes mellitus without complicationsU nspecified osteoarthritis , unspecified siteOther intervertebral disc disorders, lumbosacral regionGastro-e sophageal reflux disease without esophagitisChr onic ischemic heart disease, unspecified 6 Familia Freire. [address] , [address], [place], [place], [address]. tel:[phone] Referring Provider: Tani Barbosa, [address], [place], [address] . tel:[phone] [facility], [address], [place], [place], [address] , [place] tel: [phone] [facility] Low back pain with left-sided sciatica, unspecified back pain lateralityPelv ic pain syndromeLeft hip pain 6 Familia Freire. [address] , [address], [place], [place], [address]. tel:[phone] [facility], [address], [place], [place], [address] , [place] tel: [phone] [facility] Left sided sciatica 0 6 Familia Freire. [address] , [address], [place], [place], [address]. tel:[phone] [facility] [address], [place], [place], [address] , tel: [phone] [facility] Encounter for immunizationEs sential (primary) hypertensionHy perlipidemia, unspecifiedUns pecified osteoarthritis , unspecified siteType 2 diabetes mellitus without complicationsS ciatica, unspecified side 6 Familia Freire. [address] [facility], [address], [place], [place], [address]. tel:[phone] Referring Provider: Tani Barbosa, [address] [facility] [address], [place], [address] . tel:[phone] [facility], [address], [place], [place], [address] , tel: [phone] [facility] Anemia 5 Familia Freire. [address] [facility], [address], [place], [place], [address]. tel:[phone] Referring Provider: Tani Barbosa, [address] [facility] [address], [place], [address] . tel:[phone] [facility], [address], [place], [place], [address] , tel: [phone] [facility] Nausea 5 Familia Freire. [address] [facility], [address], [place], [place], [address]. tel:[phone] [facility] [address], [place], [place], [address] , tel: [phone] [facility] DM w/o complication type IIAnemiaHyperl ipidemiaOsteoa rthritisHypert ensionCAD (coronary artery disease) 5 Familia Freire. [address] [facility], [address], [place], [place], [address]. tel:[phone] Referring Provider: Tani Barbosa, [address] [facility] [address], [place], [address] . tel:[phone] [employer] [address], [place], [place], [address] , tel: [phone] [facility] Abdominal pain, vomiting, and diarrheaVomiti ng aloneDiarrhea 5 Barbosanolan Freire. [address], [address], [place], [place], [address]. tel:[phone] [facility] [employer] [address], [place], [place], [address] , [place] tel: [phone] [facility] Hyperlipidemia HypertensionGl ucose intolerance (pre-diabetes) 5 Barbosanolan Freire. [address], [address], [place], [place], [address]. tel:[phone] Referring Provider: Tani Barobsa, [address] [facility] [address], [place], [address] . [phone] [facility], [address], [place], [place], [address] , tel: [phone] [facility] Glucose intolerance (pre-diabetes) Hyperlipidemia Hypertension 5 Barbosanolan Freire. [address], [address], [place], [place], [address]. [phone] [facility], [address], [place], [place], [address] , tel: [phone] [facility] Other and unspecified disc disorder of lumbar region 0 5 Barbosa Tani. [address], [address], [place], [place], [address]. tel:[phone] [facility], [address], [place], [place], [address] , tel: [phone] [facility] ABDMNAL PAIN GENERALIZEDGlu cose intolerance (pre-diabetes) Hyperlipidemia 0 5 Barbosanolan Freire. [address], [address], [place], [place], [address]. tel:[phone] Referring Provider: Tani Barbosa, [address], [place], [address] . tel:[phone] [facility] [address], [place], [place], [address] , tel: [phone] [facility] ABDMNAL PAIN GENERALIZED Feb-0 2-201 5 Familia Freire. [address] , [address], [place], [place], [address]. tel:[phone] Referring Provider: Tani Barbosa, [address], [place], [address] . tel:[phone] [facility] [address], [place], [place], [address] , tel: [phone] [facility] Sciatica of left sideGeneralize d osteoarthritis Left foot painCAD (coronary artery disease)Lumbar disc diseaseCervica l disc diseaseGlucose intolerance (pre-diabetes) Hyperlipidemia GERD (gastroesophag eal reflux disease)Jaw pain, non-TMJMenopau timothy sweatsTinea corporis Jan- 4 Familia Freire. [address] , [address], [place], [place], [address]. tel:[phone] Referring Provider: Tani Barbosa, [address], [place], [address] . tel:[phone] [facility] [address], [place], [place], [address] , tel: [phone] [facility] Backache Jan- 4 Familia Freire. [address], [address], [place], [place], [address]. tel:[phone] [facility] [address], [place], [place], [address] , tel: [phone] [facility] Low back pain Jan- 4 Familia Freire. [address] , [address], [place], [place], [address]. tel:[phone] [facility] [address], [place], [place], [address] , tel: [phone] [facility] Hyperlipidemia HypertensionGE RD (gastroesophag eal reflux disease)Osteoa rthritisGlucos e intolerance (pre-diabetes) CAD (coronary artery disease) 4 Familia Freire. [address] [facility], [address], [place], [place], [address]. tel:[phone] Referring Provider: Tani Barbosa, [address] [facility] [address], [place], [address] . tel:[phone] [employer] [address], [place], [place], [address] , tel: [phone] [facility] Hyperlipidemia Generalized osteoarthritis HypertensionGl ucose intolerance (pre-diabetes) Low back painCoronary artery atheromaFoot pain 4 Familia Freire. [address] [facility], [address], [place], [place], [address]. tel:[phone] Referring Provider: Tani Barbosa, [address] [facility] [address], [place], [address] . tel:[phone] [employer] [address], [place], [place], [address] , tel: [phone] [facility] HypertensionGE RD (gastroesophag eal reflux disease)Hyperl ipidemiaGlucos e intolerance (pre-diabetes) 4 Familia Freire. [address] [facility], [address], [place], [place], [address]. tel:[phone] Referring Provider: Tani Barbosa, [address] [facility] [address], [place], [address] . tel:[phone] [employer] [address], [place], [place], [address] , tel: [phone] [facility] History of fall/At Risk For FallingHyperte nsionHyperlipi demiaGERD (gastroesophag eal reflux disease)Sciati caGeneralized osteoarthritis Neck painHeadacheCo stochondritis 4 Familia Freire. [address] [facility], [address], [place], [place], [address]. tel:[phone] Referring Provider: Tani Barbosa, [address] [facility] [address], [place], [address] . tel:[phone] [facility] [address], [place], [place], [address] , tel: [phone] [facility] No Information 3 Familia Freire. [address] [facility], [address], [place], [place], [address]. tel:[phone] Referring Provider: Tani Barbosa, [address] [facility] [address], [place], [address] . tel:[phone] [facility] [employer] [address], [place], [place], [address] , tel: [phone] [facility] IMPAIRED FASTING GLUCOSEHyperca lcemiaOther and unspecified hyperlipidemia 3 Familia Freire. [address] [facility], [address], [place], [place], [address]. tel:[phone] Referring Provider: Tani Barbosa, [address] [facility] [address], [place], [address] . tel:[phone] [facility] [address], [place], [place], [address] , tel: [phone] [facility] Hyperlipidemia IMPAIRED FASTING GLUCOSEHyperca lcemia 3 Familia Freire. [address] [facility], [address], [place], [place], [address]. tel:[phone] [facility] [address], [place], [place], [address] , tel: [phone] [facility] SciaticaGenera lized osteoarthritis Cervical radiculopathyG ERD (gastroesophag eal reflux disease)Hyperl ipidemiaHypert ension 3 Familia Freire. [address] [facility], [address], [place], [place], [address]. tel:[phone] Referring Provider: Tani Barbosa, [address] [facility] [address], [place], [address] . tel:[phone] [facility] [address], [place], [place], [address] , tel: [phone] [facility] Cervical radiculopathy 2 Familia Freire. [address] [facility], [address], [place], [place], [address]. tel:[phone] Referring Provider: Tani Barbosa, [address] [facility] [address], [place], [address] . tel:[phone] [facility] [address], [place], [place], [address] , tel: [phone] [facility] HypertensionHy perlipidemiaCo ronary artery atheromaLow back painScoliosisG ERD (gastroesophag eal reflux disease)Other abnormal glucose 2 Familia Freire. [address] [facility], [address], [place], [place], [address]. tel:[phone] Referring Provider: Tani Barbosa, [address] [facility] [address], [place], [address] . tel:[phone] [facility] [address], [place], [place], [address] , tel:[phone] [facility] GERD (gastroesophag eal reflux disease)Left foot painHyperlipid emiaHypertensi onOther and unspecified disc disorder of lumbar region 2 Familia Freire. [address] [facility], [address], [place], [place], [address]. tel:[phone] Referring Provider: Tani Barbosa, [address] [facility] [address], [place], [address] . tel:[phone] [facility] [address], [place], [place], [address] , tel: [phone] [facility] Impacted cerumenNeuralg ia, neuritis, and radiculitis, unspecified 2 Familia Freire. [address] [facility], [address], [place], [place], [address]. tel:[phone] Referring Provider: Tani Barbosa, [address] [facility] [address], [place], [address] . tel:[phone] [facility] [address], [place], [place], [address] , tel: [phone] [facility] ConstipationOs teoarthrosis, generalized, involving multiple sitesLumbosacr al spondylosis without myelopathyAnxi ety state, unspecifiedSci atica 1 Familia Freire. [address] [facility], [address], [place], [place], [address]. tel:[phone] Referring Provider: Tani Barbosa, [address] [facility] [address], [place], [address] . tel:[phone] [facility] [address], [place], [place], [address] , tel: [phone] [facility] No Information 1 Familia Freire. [address] [facility], [address], [place], [place], [address]. tel:[phone] Referring Provider: Tani Barbosa, [address] [facility] [address], [place], [address] . tel:[phone] [facility] [address], [place], [place], [address] , tel: [phone] [facility] HYPERLIPIDEMIA NEC/NOSHYPERTE NSION NOS 1 Familia Freire. [address] [facility], [address], [place], [place], [address]. tel:[phone] [place] [address], [address], [place], [place], [address] , [place] tel:[phone] [facility] GENERAL OSTEOARTHROSIS ESOPHAGEAL REFLUX June-0 6-201 1 Trame Jon. [address] [facility], [address], [place], [place], [address]. tel:[phone] [facility], [address], [place], [place], [address] , [place] tel: [phone] [facility] LUMBOSACRAL SPONDYLOSISFAM NICO HX-BREAST MALIG Nov-0 3-201 0 Barbosa Tani. [address] [facility], [address], [place], [place], [address]. tel:[phone] [place] [address], [address], [place], [place], [address] , tel: [phone] [facility] MYALGIA AND MYOSITIS NOS 5-201 0 Barbosa Tani. [address] [facility], [address], [place], [place], [address]. tel:[phone] [facility], [address], [place], [place], [address] , [place] tel: [phone] [facility] LUMBAGO June-2 5-201 0 Barbosa Tani. [address] [facility], [address], [place], [place], [address]. tel:[phone] [facility], [address], [place], [place], [address] , [place] tel:[phone] [facility] GENERAL OSTEOARTHROSIS BACKACHE NOS 7-201 0 Barbosa Tani. [address] [facility] [address], [address], [place], [place], [address]. tel:[phone] [facility], [address], [place], [place], [address] , [place] tel:[phone] [facility] AORTIC ATHEROSCLEROSI SCHR ISCHEMIC HRT DIS NOS 8-200 9 Barbosa Tani. [address] [facility], [address], [place], [place], [address]. tel:[phone] [facility], [address], [place], [place], [address] , tel: [phone] [facility] CHEST PAIN NOSIRRITABLE BOWEL SYNDROME 9 [facility]. [address] [facility], [address], [place], [place], [address]. tel:[phone] [facility], [address], [place], [place], [address] , [place] tel: [phone] [facility] VACCIN FOR INFLUENZA 9 Barbosa Tani. [address] [facility], [address], [place], [place], [address]. tel:[phone] [place] [address], [address], [place], [place], [address] , tel: [phone] [facility] IMPAIRED FASTING GLUCOSE 9 Barbosa Tani. [address] [facility], [address], [place], [place], [address]. tel:[phone] [place] [address], [address], [place], [place], [address] , [place] tel: [phone] [facility] LONG-TERM USE MEDS NECDVRTCLI COLON W/O HMRHG 9 [facility]. [address] [facility], [address], [place], [address]. tel:[phone] [place] [address], [address], [place], [place], [address] , [place] tel: [phone] [facility] No Information 9 Barbosa Tani. [address] [facility], [address], [place], [place], [address]. tel:[phone] [place] [address], [address], [place], [place], [address] , tel: [phone] [facility] COUGH 200 9 Barbosa Tani. [address] [facility], [address], [place], [place], [address]. tel:[phone] [facility], [address], [place], [place], [address] , [place] tel: [phone] [facility] ABDMNAL PAIN GENERALIZED 0 9 Trame Jon. [address] [facility], [address], [place], [place], [address]. tel:[phone] [facility], [address], [place], [place], [address] , [place] tel:[phone] [facility] DISC DIS NEC/NOS-LUMBAR TMJ SOUNDS OPN/CLOSE JAW 8 Barbosa Tani. [address] [facility], [address], [place], [place], [address]. tel:[phone] [facility], [address], [place], [place], [address] , [place] tel: [phone] [facility] PLANTAR FIBROMATOSISMA LAISE AND FATIGUE NEC 8 Trame Jon. [address] [facility], [address], [place], [place], [address]. tel:[phone] [facility], [address], [place], [place], [address] , [place] tel: [phone] [facility] IMPACTED CERUMENFASCIIT IS NOSCHR KIDNEY DIS STAGE IIIBEN HY KID W CR KID I-IV 8 Barbosa Tani. [address] [facility], [address], [place], [place], [address]. tel:[phone] [facility], [address], [place], [place], [address] , [place] tel: [phone] [facility] CHR SEROUS OM SIMP/NOSAC SEROUS OTITIS MEDIAORGANIC INSOMNIA NOS 8200 8 Barbosa Tani. [address] [facility], [address], [place], [place], [address]. tel:[phone] [facility], [address], [place], [place], [address] , [place] tel:[phone] [facility] TIETZE'S DISEASECELLULI TIS, TOE NOS Nov-2 4-200 7 Barbosa Tani. [address] [facility], [address], [place], [place], [address]. tel:[phone] [facility], [address], [place], [place], [address] , [place] tel: [phone] [facility] CATARACT NOSRECUR UNILAT INGUIN RADHA Aguila-2 0-200 7 Barbosa Tani. [address] [facility], [address], [place], [place], [address]. tel:[phone] [facility], [address], [place], [place], [address] , [place] tel: [phone] [facility] BLISTER FOOT & TOE-INFEC Fe-0 5-200 7 Barbosa Tani. [address] [facility], [address], [place], [place], [address]. 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 [address] [facility], [address], [place], [place], [address]. tel:[phone] [facility], [address], [place], [place], [address] , [place] tel: [phone] [facility] DEPRESSIVE DISORDER NEC Sep-1 0-200 6 Barbosa Tani. [address] [facility], [address], [place], [place], [address]. tel:[phone] [facility], [address], [place], [place], [address] , [place] tel:[phone] [facility] TMJ DISORDERS NOSGLOSSODYNIA Fe- 6-200 6 Barbosa Tani. [address] [facility], [address], [place], [place], [address]. tel:[phone] [facility], [address], [place], [place], [address] , [place] tel:[phone] [facility] OLECRANON BURSITISMULTIP LE CONTUSIONS NECFALL FROM SLIPPING NECACCIDENT IN HOME 3-200 5 Barbosa Tani. [address] [facility] [address], [address], [place], [place], [address]. tel:[phone] [facility], [address], [place], [place], [address] , [place] tel:[phone] [facility] EDEMA 3-200 5 Barbosa Tani. [address] [facility] [address], [address], [place], [place], [address]. tel:[phone] [facility], [address], [place], [place], [address] , [place] tel:[phone] [facility] PAIN IN LIMB 3200 5 Trame Jon. [address] [facility] [address], [address], [place], [place], [address]. tel:[phone] [facility], [address], [place], [place], [address] , [place] tel:[phone] [facility] ABN BLOOD CHEMISTRY NEC 3-200 4 Barbosa Tani. [address] [facility] [address], [address], [place], [place], [address]. tel:[phone] [facility], [address], [place], [place], [address] , [place] tel:[phone] [facility] VACCINATION FOR TD-DT 5200 4 Barbosa Tani. [address] [facility] [address], [address], [place], [place], [address]. tel:[phone] [facility], [address], [place], [place], [address] , [place] tel:[phone] [facility] ANXIETY STATE NOS 7-200 4 Barbosa Tani. [address] [facility] [address], [address], [place], [place], [address]. tel:[phone] [facility], [address], [place], [place], [address] , tel: [phone] [facility] IDIO PERIPH NEURPTHY NEC 0-200 4 Barbosa Tani. [address] , [address], [place], [place], [address]. tel:[phone] [facility], [address], [place], [place], [address] , tel: [phone] [facility] HORMONE REPLACE POSTMENO 7-200 2 Conversion Doctor. [address] [facility], [place], [address], . [facility], [address], [place], [place], [address] , tel: [phone] [facility] FAM HX-DIABETES MELLITUSSKIN SENSATION DISTURBHAIR DISEASES NEC 3-200 1 Barbosanolan Freire. [address] , [address], [place], [place], [address]. tel:[phone] [facility], [address], [place], [place], [address] , tel: [phone] [facility] CONSTIPATION 0-200 0 Trame Jon. [address] , [address], [place], [place], [address]. tel:[phone] Family History Family Member Type Diagnosis Age [...] New Imm unization Record Fluzone administered Note: [facility] [id number] ; Source: New Immunization Record Fluzone administered Source: New Imm unization Record Zoster administered Source: Other P rovider Payers Payer name Insurance type Covered republican ID Authoriza tion(s) [place] [id number] [place] [id number] [place] [id number] [place] [id number] [place] [id number] [place] [id number] [place] [id number] [place] [id number] [place] [id number] [place] [id number] [place] [id number] [place] [id number] Social History Type Description Quantity Date Captured Comments Sex Female Smoking Status No Information Chief Complaint And Reason For Visit No Information Reason For Referral Reason For Referral No Information Plan Of Treatment Date Type Action Status Referral Ordered: XR cervical spine, 2 views ordered Referral Referred To: [facility] [facility] [address] [place], [id number] Ordered: Chest x-ray, PA and lateral ordered [...] Here for a priyao w up from [facility] ER on 09/30/18 for a scalp [...] 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
--- OUTSIDE RECORDS SUMMARY | 2024-05-29 11:01 | XMS_ITS | Clinical Summary ---
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
--- OUTSIDE RECORDS SUMMARY | 2024-05-29 11:01 | XMS_ITS | Encounter Summary ---
Author Organization [facility] Address [address] [place] [address] Care Team Providers Care Dredge Pipe Installer Name Role Phone Clarice Cazares MD Primary Care Provider [phone] Encounter Details Date Type Department Care Team (Late st Contact Info) Description 08/24/2019 Abstract [facility] [address] [place] [address] Abstract, Doc [facility] Social History [...] Result * TSH (OUTSIDE LAB) (07/09/2019) Pathologist [facility] TSH 0.78 07/09/2019 Result Latrice Cazares MD LAB-OUTSIDE/ABSTRACTED Final Result * CK (CPK) (07/09/2019) Pathologist [facility] CPK 94 07/09/2019 Result [facility] us Clarice Cazares MD LABORATORY Final Result * VITAMIN D, 25 [place] (07/09/2019) [facility] VITAMIN D 25 HYDROXY S/P/B 39 07/09/2019 Result Latrice Cazares MD LABORATORY Final Result * (ABNORMAL) CMP (ABSTRACTED LAB) (07/09/2019) [facility] SODIUM S/P/B 136 POTASSIUM S/P/B 5.0 CHLORIDE [...] LAB-OUTSIDE/ABSTRACTED Final Result * LIPID PANEL (07/09/2019) [facility] CHOLESTEROL 151 HDL 42 TRIGLYCERIDES 270 NON HDL CHOLESTEROL 109 CHOL/HDL RATIO 3.6 LDL (CALCULATED) 73 07/09/2019 Result Latrice Cazares MD LABORATORY Final Result documented in this encounter Visit Diagnoses Not on filedocumented in this encounter Care Teams Dredge Pipe Installer Relationship Specialty Start Date End Date Clarice Cazares MD [address] [place] [address] PCP - General INTERNAL MEDICINE 08/17/19 documented as of this encounter
[2024-05-29 11:15] LABS: Add Urine Microscopic? NO; Appearance Urine Clear (Clear); Bilirubin Urine Negative (Negative); Blood Urine Negative (Negative); Color Urine Light Yellow (Yellow); Glucose Urine UA Negative (Negative); Ketones Urine Negative (Negative); Leukocyte Esterase Ur Negative (Negative); Nitrate Urine Negative (Negative); Protein Urine Negative (Negative); Urobilinogen Urine 0.2 mg/dL (0.2-1.0); pH Urine 5.5 (5.0-8.0)
[2024-05-29 11:37] LABS: Anion Gap 13 mmol/L (4-12); Blood Urea Nitrogen 20 mg/dL (7-18); Calcium 8.9 mg/dL (8.5-10.1); Carbon Dioxide 24 mmol/L (21-32); Chloride 101 mmol/L (98-108); Estimated Glomerular Filt Rate 34; Glucose 130 mg/dL (70-99); Osmolality Calculated 290 mOsm/kg (285-295); Potassium 3.8 mmol/L (3.5-5.1); Sodium 138 mmol/L (136-145)
== END 2024-05-29 10:59 | disposition home or self-care (01) ==
LOC: CHSLAB 10:59
PROVIDERS: PCP Internal Medicine; Visit Provider Internal Medicine
DX: N18.30 Chronic kidney disease, stage 3 unspecified (principal); N39.0 Urinary tract infection, site not specified
CPT/HCPCS: 36415; 80048; 81003; 87086

== ENCOUNTER 2024-06-14 12:09 | Outpatient (CLI) | payer MEDICARE, SELFPAY ==
[2024-06-14 12:33] LABS: Add Urine Microscopic? YES; Appearance Urine Clear (Clear); Bilirubin Urine Negative (Negative); Blood Urine Negative (Negative); Color Urine Light Yellow (Yellow); Glucose Urine UA Negative (Negative); Ketones Urine Negative (Negative); Leukocyte Esterase Ur Trace (Negative); Nitrate Urine Negative (Negative); Protein Urine 2+ (Negative); Urobilinogen Urine 0.2 mg/dL (0.2-1.0)
[2024-06-14 12:45] LABS: Bacteria Urine 1+ /hpf; RBC Urine None seen /hpf (0-2); Squamous Epithelial Cell Urine Few /hpf (Few); WBC Urine 0-3 /hpf (0-3)
[2024-06-14 12:50] LABS: Anion Gap 8 mmol/L (4-12); Blood Urea Nitrogen 11 mg/dL (7-18); Calcium 9.2 mg/dL (8.5-10.1); Carbon Dioxide 27 mmol/L (21-32); Chloride 105 mmol/L (98-108); Estimated Glomerular Filt Rate 43; Glucose 127 mg/dL (70-99); Osmolality Calculated 291 mOsm/kg (285-295); Potassium 4.4 mmol/L (3.5-5.1); Sodium 140 mmol/L (136-145)
--- OUTSIDE RECORDS SUMMARY | 2024-06-14 13:56 | XMS_ITS | Encounter Summary ---
Author Organization [facility] Address [address] [place] [address] Care Team Providers Care Research Associate Molecular Biology Name Role Phone Clarice Cazares MD Primary Care Provider [phone] Reason for Referral * Surgical (Routine) - Closed Specialty Diagnoses / Procedures Referred By Contac t Referred To Contact Procedures Case request operating room: BLOCK MEDIAL [facility]ANCH CERVICAL c456 Alyssia Brown MD Three [facility] [address] [place] [address] Phone: tel: fax: Referral ID Status Reason Start Date Expiration Date Visits Re quested Visits Authorized [id number] Closed 09/26/2020 10/27/2021 1 1 * Surgical (Routine) - Closed Specialty Diagnoses / Procedures Referred By Contac t Referred To Contact Procedures Case request operating room: INJECTION EPIDURAL STEROID CERVICAL C4-5 Carla Infante APNP Phone: tel: fax: Referral ID Status Reason Start Date Expiration Date Visits Re quested Visits Authorized [id number] Closed 06/06/2020 07/06/2021 1 1 Encounter Details Date Type Department Care Team (Late st Contact Info) Description 06/06/2020 Prep for Procedure 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
--- OUTSIDE RECORDS SUMMARY | 2024-06-14 13:56 | XMS_ITS | Encounter Summary ---
Author Organization [facility] Address [address] [place] [address] Care Team Providers Care Spooler Name Role Phone Clarice Cazares MD Primary Care Provider Encounter Details Date Type Department Care Team (Late st Contact Info) Description 08/24/2019 Abstract [facility] [address] [place] [address] Abstract, Doc [facility] Social History [...] on file documented as of this encounter Functional Status documented as of this encounter Plan of [...] * TSH (OUTSIDE LAB) (07/09/2019) Pathologist [facility] TSH 0.78 07/09/2019 Result Latrice Cazares MD LAB-OUTSIDE/ABSTRACTED Final Result * CK (CPK) (07/09/2019) Pathologist [facility] CPK 94 07/09/2019 Result Latrice Cazares MD LABORATORY Final Result * VITAMIN D, 25 [place] (07/09/2019) Pathologist [facility] VITAMIN D 25 HYDROXY S/P/B 39 07/09/2019 Result Latrice Cazares MD LABORATORY Final Result * (ABNORMAL) CMP (ABSTRACTED LAB) (07/09/2019) [facility] SODIUM S/P/B 136 POTASSIUM S/P/B 5.0 CHLORIDE [...] LAB-OUTSIDE/ABSTRACTED Final Result * LIPID PANEL (07/09/2019) Pathologist [facility] CHOLESTEROL 151 HDL 42 TRIGLYCERIDES 270 NON HDL CHOLESTEROL 109 CHOL/HDL RATIO 3.6 LDL (CALCULATED) 73 07/09/2019 Result Latrice Cazares MD LABORATORY Final Result documented in this encounter Visit Diagnoses Not on filedocumented in this encounter Care Teams Spooler Relationship Specialty Start Date End Date Clarice Cazares MD [address] [place] [address] PCP - General INTERNAL MEDICINE 08/17/19 documented as of this encounter
--- OUTSIDE RECORDS SUMMARY | 2024-06-14 13:56 | XMS_ITS | Clinical Summary ---
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
== END 2024-06-14 12:10 | disposition home or self-care (01) ==
LOC: CHSLAB 12:11
PROVIDERS: PCP Internal Medicine; Visit Provider Internal Medicine
DX: N18.30 Chronic kidney disease, stage 3 unspecified (principal); N39.0 Urinary tract infection, site not specified
CPT/HCPCS: 36415; 80048; 81001; 87086

== ENCOUNTER 2024-08-19 14:02 | Outpatient (CLI) | payer MEDICARE, SELFPAY ==
--- OUTSIDE RECORDS SUMMARY | 2024-08-19 14:09 | XMS_ITS | Encounter Summary ---
Author Organization [facility] Address [address] [place] [address] Care Team Providers Care Mail Officer Name Role Phone Clarice Cazares MD Primary Care Provider [phone] Reason for Referral * Surgical (Routine) - Closed Specialty Diagnoses / Procedures Referred By Contac t Referred To Contact Procedures Case request operating room: BLOCK MEDIAL BRANCH CERVICAL c456 Alyssia Brown MD Three [facility] [address] [place] [address] Phone: tel: fax: Referral ID Status Reason Start Date Expiration Date Visits Re quested Visits Authorized [id number] Closed 09/26/2020 10/27/2021 1 1 * Surgical (Routine) - Closed Specialty Diagnoses / Procedures Referred By Contac t Referred To Contact Procedures Case request operating room: INJECTION EPIDURAL STEROID CERVICAL C4-5 Carla Infante APNP Phone: tel: fax: Referral ID Status Reason Start Date Expiration Date Visits Re quested Visits Authorized [id number] Closed 06/06/2020 07/06/2021 1 1 Encounter Details Date Type Department Care Team (Late st 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
--- OUTSIDE RECORDS SUMMARY | 2024-08-19 14:09 | XMS_ITS | Clinical Summary ---
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 MEDICARE [facility] Care Teams Coagulating Bath Operator Relationship Specialty Start Date End Date Clarice Cazares MD [address] [place] [address] PCP - General INTERNAL MEDICINE 08/17/19
--- OUTSIDE RECORDS SUMMARY | 2024-08-19 14:09 | XMS_ITS | Encounter Summary ---
Author Organization [facility] Address [address] [place] [address] Care Team Providers Care Maintenance Scheduler Name Role Phone Clarice Cazares MD Primary Care Provider [phone] Encounter Details Date Type Department Care Team (Late st Contact Info) Description 08/24/2019 Abstract [facility] [address] [place] [address] Abstract, Doc [facility] Social History [...] (07/09/2019) VITAMIN B12 S/P/B 1,895 07/09/2019 us Clairce Cazares MD LABORATORY Final Result * CBC [...] Result * TSH (OUTSIDE LAB) (07/09/2019) Pathologist [facility] TSH 0.78 07/09/2019 Result Latrice Cazares MD LAB-OUTSIDE/ABSTRACTED Final Result * CK (CPK) (07/09/2019) Pathologist [facility] CPK 94 07/09/2019 Result Latrice Cazares MD LABORATORY Final Result * VITAMIN D, 25 OH (07/09/2019) Pathologist [facility] VITAMIN D 25 HYDROXY S/P/B 39 07/09/2019 Result Latrice Cazaers MD LABORATORY Final Result * (ABNORMAL) CMP (ABSTRACTED LAB) (07/09/2019) [facility] SODIUM S/P/B 136 POTASSIUM S/P/B 5.0 CHLORIDE [...] Final Result * LIPID PANEL (07/09/2019) Pathologist [facility] CHOLESTEROL 151 HDL 42 TRIGLYCERIDES 270 NON HDL CHOLESTEROL 109 CHOL/HDL RATIO 3.6 LDL (CALCULATED) 73 07/09/2019 Result Latrice Cazares MD LABORATORY Final Result documented in this encounter Visit Diagnoses Not on filedocumented in this encounter Care Teams Maintenance Scheduler Relationship Specialty Start Date End Date Clarice Cazares MD [address] [place] [address] PCP - General INTERNAL MEDICINE 08/17/19 documented as of this encounter
[2024-08-19 14:50] LABS: Anion Gap 6 mmol/L (4-12); Blood Urea Nitrogen 23 mg/dL (7-17); Calcium 9.2 mg/dL (8.4-10.2); Carbon Dioxide 22 mmol/L (22-30); Chloride 107 mmol/L (98-107); Estimated Glomerular Filt Rate 36; Glucose 149 mg/dL (65-110); Osmolality Calculated 286 mOsm/kg (285-295); Potassium 4.8 mmol/L (3.4-5.0); Sodium 135 mmol/L (137-145)
== END 2024-08-19 14:03 | disposition home or self-care (01) ==
LOC: CHSLAB 14:08
PROVIDERS: PCP Internal Medicine; Visit Provider Internal Medicine
DX: E86.0 Dehydration (principal)
CPT/HCPCS: 36415; 80048

== ENCOUNTER 2024-11-16 08:40 | Outpatient (CLI) | payer MEDICARE, SELFPAY ==
--- OUTSIDE RECORDS SUMMARY | 2019-08-11 10:46 | XMS_ITS | Continuity of Care Document ---
Author Organization [employer] Address [address] [place] [address] Phone Care Team Providers Care Director Of Logistics Name Role Phone Yonatan Deal MD Unavailable Unavailable Allergies, Adverse Reactions, Alerts Substance Reaction Status Criticality metformin Nausea Active No Information ciprofloxacin [facility] Active No Information Medications Medication Instructions Dosage Effective Dates (start - stop) Status Comments hydrochlorothiazide 12.5 mg tablet take 1 tablet by oral route 3 times every week - Active metoprolol succinate ER 50 mg tablet,extended release 24 hr take 1 tablet by oral route every day 50 MG - Active lorazepam 1 mg tablet take one tablet by mouth four times daily - Active gabapentin 300 mg capsule 1 capsule 3x p er day and 2 at bedtime - Active refill when needed amlodipine 5 mg tablet take 1 by Oral route every day 1 - Active lisinopril 20 mg tablet take 1 tablet by oral route every day 20 MG - Active Celebrex 200 mg capsule take 1 capsule b y oral route every day 200 MG - Active atorvastatin 80 mg tablet take 1 tablet by oral route every day 80 MG - Active Vitamin B-12 1,000 mcg tablet one tablet by mouth daily. - Active Vitamin D3 1,000 unit capsule 1 by mouth daily - Active Centrum Silver Women 8 mg iron-400 mcg-300 mcg tablet - Active Nexium 40 mg capsule,delayed release take 1 capsule by oral route every day 40 MG - Active Procedures Procedure Date CBC, INC PLATELETS AND DIFFERENTIAL COMPREHEN METABOLIC PANEL CMP 0 LIPID PANEL ROUTINE VENIPUNCTURE [place] PPPS, subseq visit BODY MASS INDEX DOCD SYST BP >= 140 MM HG6 IT DIAST BP < 80 MM HG OFFICE [id number] BODY MASS INDEX DOCD SYST BP GE 130 - 139MM HG DIAST BP < 80 MM HG FALL PLAN OF CARE DOC'D URINE INCON PLAN DOC'D PRES/ABSN URINE INCON ASSESS CBC, INC PLATELETS AND DIFFERENTIAL COMPREHEN METABOLIC PANEL CMP 9 LIPID PANEL VITAMIN B12 (SERUM) ROUTINE VENIPUNCTURE IL OFFICE [id number] BODY MASS INDEX DOCD SYST BP GE 130 - 139MM HG DIAST BP < 80 MM HG Advance Directives Directive Yes / No Effective Date File Name No Information Encounters Encounter Description Practice Location Reason(s) For Visit Diagnoses Date Provider Providers Copied on Encounter [facility], [address], [place], [place], [address] , tel:[phone] [facility] No Information 0 Say Tam. [address] , [address], [place], [place], [address], [place]. tel:[phone] [facility], [address], [place], [place], [address] , [place] tel: [phone] [facility] No Information 0 Say Yonatan. [address], [address], [place], [place], [address], . tel:[phone] [facility], [address], [place], [place], [address] , tel: [phone] [facility] No Information 0 Say Tam. [address], [address], [place], [place], [address], [place]. tel:[phone] [facility], [address], [place], [place], [address] , [place] tel: [phone] [facility] No Information 0 Say Tam. [address], [address], [place], [place], [address], [place]. tel:[phone] [facility], [address], [place], [place], [address] , [place] tel: [phone] [facility] No Information 0 Say Tam. [address], [address], [place], [place], [address], [place]. tel:[phone] [place] [address] [address], [place], [place], [address] , tel: [phone] [facility] Annual Wellness Visit (chief complaint)Enrrique gandhi (chief complaint) Neck painEncounter for general adult medical examination without abnormal findings 0 Say Tam. [address] , [address], [place], [place], [address], [place]. tel:[phone] Referring Provider: Yonatan Deal, [address], [place], [address] . tel:[phone] [facility], [address], [place], [place], [address] , [place] tel: [phone] [facility] No Information 0 Say Tam. [address], [address], [place], [place], [address], [place]. tel:[phone] [facility], [address], [place], [place], [address] , tel: [phone] [facility] No Information 0 Say Tam. [address], [address], [place], [place], [address], [place]. tel:[phone] [facility], [address], [place], [place], [address] , [place] tel: [phone] [facility] No Information 9 Say Tam. [address], [address], [place], [address], [place]. tel:[phone] [facility], [address], [place], [place], [address] , tel: [phone] [facility] No Information Say Yonatan. [address], [address], [place], [place], [address], [place]. tel:[phone] OFFICE URGMO-GCW-EN TAILED [facility], [address], [place], [place], [address] , tel: [phone] [facility] ER Follow Up (chief complaint)c ough (chief complaint) Hematoma of scalp, subsequent encounterCoccy dyniaChronic cough Say Tam. [address], [address], [place], [place], [address], [place]. tel:[phone] Referring Provider: Yonatan Deal, [address], [place], [address] . tel:[phone] OFFICE FEPSS-VBS-UR PANDED [facility], [address], [place], [place], [address] , [place] tel: [phone] [facility] 4 month follow up (chief complaint)C hronic Conditions (chief complaint) Essential (primary) hypertensionAt herosclerotic heart disease of [place] coronary artery without angina pectoris Say Tam. [address] , [address], [place], [place], [address], [place]. tel:[phone] Referring Provider: Yonatan Deal, [address], [place], [address] . tel:[phone] [facility], [address], [place], [place], [address] , tel: [phone] [facility] Essential hypertensionCo ntrolled type 2 diabetes mellitus without complication, without long-term current use of insulin 9 Say Tam. [address], [address], [place], [place], [address], [place]. tel:[phone] [facility], [address], [place], [place], [address] , [place] tel: [phone] [facility] Essential hypertensionFa ce pain 9 Say Tam. [address], [address], [place], [place], [address], [place]. tel:[phone] Referring Provider: Yonatan Deal, [address] [employer] [address], [place], [address] . tel:[phone] [facility], [address], [place], [place], [address] , tel: [phone] [facility] Encntr screen mammogram for malignant neoplasm of breast 9 Nemo Blandon. [address], [place], [address], [place]. tel:[phone] [facility], [address], [place], [place], [address] , [place] tel: [phone] [facility] Controlled type 2 diabetes mellitus without complication, without long-term current use of insulinGastroe sophageal reflux disease without esophagitisBen ign hypertension with chronic kidney disease, stage IIIChronic kidney disease, stage 3 (moderate)Anxi etyLumbar disc disease with radiculopathyL eft sided sciaticaPain, foot, left, chronicOther chronic painFamily history of breast cancerLong-ter m use of high-risk medicationAthe rosclerotic heart disease of [place] coronary artery without angina pectorisNeural brent involving scalpImpacted cerumen, right ear 8 Barbosa Tani. [address] [facility] [address], [address], [place], [place], [address]. tel:[phone] Referring Provider: Tani Barbosa, [address] [facility] [address], [place], [address] . tel:[phone] [facility], [address], [place], [place], [address] , tel: [phone] [facility] No Information 8 Say Tam. [address] [facility] [address], [address], [place], [place], [address], [place]. tel:[phone] [facility], [address], [place], [place], [address] , tel: [phone] [facility] No Information 8 Familia Freire. [address] [facility] [address], [address], [place], [place], [address]. tel:[phone] [facility], [address], [place], [place], [address] , tel: [phone] [facility] Controlled type 2 diabetes mellitus without complication, without long-term current use of insulinSciatic a of left sideLumbar disc disease with radiculopathyG astroesophagea l reflux disease without esophagitisFat igue, unspecified typeBenign hypertension with chronic kidney disease, stage IIIChronic kidney disease, stage 3 (moderate)Anxi etyAtheroscler otic heart disease of [place] coronary artery without angina pectoris 8 Familia Freire. [address] [facility], [address], [place], [place], [address]. tel:[phone] Referring Provider: Tani Barbosa, [address] [facility] [address], [place], [address] . tel:[phone] [facility], [address], [place], [place], [address] , tel: [phone] [facility] Controlled type 2 diabetes mellitus without complication, without long-term current use of insulinHyperli pidemia, unspecifiedOst eoarthritis of lumbosacral spine with radiculopathyS ciatica of left sideLumbar disc disease with radiculopathyG astroesophagea l reflux disease without esophagitisFat igue, unspecified typeBenign hypertension with chronic kidney disease, stage IIIChronic kidney disease, stage 3 (moderate)Anxi ety 8 Familia Tani. [address], [address], [place], [place], [address]. tel:[phone] Referring Provider: Tani Barbosa, [address] [facility] [address], [place], [address] . tel:[phone] [employer], [address], [place], [place], [address] , [place] tel: [phone] [facility] Controlled type 2 diabetes mellitus without complication, without long-term current use of insulinHyperli pidemia, unspecifiedSci atica of left sideOsteoarthr itis of lumbosacral spine with radiculopathyL umbar disc disease with radiculopathyG astroesophagea l reflux disease without esophagitisFat igue, unspecified typeGeneralize d anxiety disorder Familia Freire. [address], [address], [place], [place], [address]. tel:[phone] Referring Provider: Tani Barbosa, [address] [employer] [address], [place], [address] . tel:[phone] [facility], [address], [place], [place], [address] , [place] tel: [phone] [facility] No Information 7 Familia Freire. [address], [address], [place], [place], [address]. tel:[phone] Referring Provider: Tani Barbosa, [address] [employer] [address], [place], [address] . tel:[phone] [facility], [address], [place], [place], [address] , [place] tel: [phone] [facility] Essential (primary) hypertensionCo ntrolled type 2 diabetes mellitus without complication, without long-term current use of insulinSciatic a of left sideOsteoarthr itis of lumbosacral spine with radiculopathyL umbar disc disease with radiculopathyG astroesophagea l reflux disease without esophagitisHyp erlipidemia, unspecifiedAth erosclerotic heart disease of [place] coronary artery without angina pectorisGenera lized anxiety disorderFatigu e, unspecified type 7 Familia Freire. [address], [address], [place], [place], [address]. tel:[phone] Referring Provider: Tani Barbosa, [address] [facility] [address], [place], [address] . tel:[phone] [facility], [address], [place], [place], [address] , tel: [phone] [facility] Essential (primary) hypertensionSc iatica of left sideUnspecifie d osteoarthritis , unspecified siteOsteoarthr itis of lumbosacral spine with radiculopathyA therosclerotic heart disease of [place] coronary artery without angina pectorisHyperl ipidemia, unspecifiedGas troesophageal reflux disease without esophagitisCon trolled type 2 diabetes mellitus without complication, without long-term current use of insulin 7 Familia Freire. [address], [address], [place], [place], [address]. tel:[phone] Referring Provider: Tani Barbosa, [address], [place], [address] . tel:[phone] [facility], [address], [place], [place], [address] , tel: [phone] [facility] Type 2 diabetes mellitus without complicationsH yperlipidemia, unspecifiedGas tro-esophageal reflux disease without esophagitisCor onary artery disease involving [place] coronary artery of [place] heart without angina pectorisLumbar disc disease with radiculopathyO steoarthritis of lumbosacral spine with radiculopathy Sep- 6 Familia Freire. [address], [address], [place], [place], [address]. tel:[phone] Referring Provider: Tani Barbosa, [address], [place], [address] . tel:[phone] [facility], [address], [place], [place], [address] , tel: [phone] [facility] Sciatica of left side 6 Familia Freire. [address], [address], [place], [place], [address]. tel:[phone] [facility], [address], [place], [place], [address] , [place] tel: [phone] [facility] Left sided sciaticaHyperl ipidemia, unspecifiedEss ential (primary) hypertensionTy pe 2 diabetes mellitus without complicationsU nspecified osteoarthritis , unspecified siteOther intervertebral disc disorders, lumbosacral regionGastro-e sophageal reflux disease without esophagitisChr onic ischemic heart disease, unspecified 6 Familia Freire. [address] , [address], [place], [place], [address]. tel:[phone] Referring Provider: Tani Barbosa, [address], [place], [address] . tel:[phone] [facility], [address], [place], [place], [address] , [place] tel: [phone] [facility] Low back pain with left-sided sciatica, unspecified back pain lateralityPelv ic pain syndromeLeft hip pain 6 Familia Freire. [address] , [address], [place], [place], [address]. tel:[phone] [facility], [address], [place], [place], [address] , [place] tel: [phone] [facility] Left sided sciatica 0 6 Familia Freire. [address] , [address], [place], [place], [address]. tel:[phone] [facility] [address], [place], [place], [address] , tel: [phone] [facility] Encounter for immunizationEs sential (primary) hypertensionHy perlipidemia, unspecifiedUns pecified osteoarthritis , unspecified siteType 2 diabetes mellitus without complicationsS ciatica, unspecified side 6 Familia Freire. [address] [facility], [address], [place], [place], [address]. tel:[phone] Referring Provider: Tani Barbosa, [address] [facility] [address], [place], [address] . tel:[phone] [facility], [address], [place], [place], [address] , tel: [phone] [facility] Anemia 5 Familia Freire. [address] [facility], [address], [place], [place], [address]. tel:[phone] Referring Provider: Tani Barbosa, [address] [facility] [address], [address] . tel:[phone] [facility], [address], [place], [place], [address] , tel: [phone] [facility] Nausea 5 Familia Freire. [address] [facility], [address], [place], [place], [address]. [phone] [facility] [address], [place], [place], [address] , tel: [phone] [facility] DM w/o complication type IIAnemiaHyperl ipidemiaOsteoa rthritisHypert ensionCAD (coronary artery disease) 5 Familia Freire. [address] [facility], [address], [place], [place], [address]. tel:[phone] Referring Provider: Tani Barbosa, [address] [facility] [address], [place], [address] . tel:[phone] [employer], [address], [place], [place], [address] , tel: [phone] [facility] Abdominal pain, vomiting, and diarrheaVomiti ng aloneDiarrhea 5 Barbosanolan Freire. [address], [address], [place], [place], [address]. tel:[phone] [facility] [employer], [address], [place], [place], [address] , [place] tel: [phone] [facility] Hyperlipidemia HypertensionGl ucose intolerance (pre-diabetes) 5 Barbosanolan Freire. [address], [address], [place], [place], [address]. tel:[phone] Referring Provider: Tani Barbosa, [address] [facility] [address], [place], [address] . tel:[phone] [facility], [address], [place], [place], [address] , tel: [phone] [facility] Glucose intolerance (pre-diabetes) Hyperlipidemia Hypertension 5 Barbosanolan Freire. [address], [address], [place], [place], [address]. tel:[phone] [facility], [address], [place], [place], [address] , tel: [phone] [facility] Other and unspecified disc disorder of lumbar region 0 5 Barbosa Tani. [address], [address], [place], [place], [address]. [phone] [facility], [address], [place], [place], [address] , tel: [phone] [facility] ABDMNAL PAIN GENERALIZEDGlu cose intolerance (pre-diabetes) Hyperlipidemia 0 5 Barbosanolan Freire. [address], [address], [place], [place], [address]. tel:[phone] Referring Provider: Tani Barbosa, [address], [place], [address] . tel:[phone] [facility] [address], [place], [place], [address] , tel: [phone] [facility] ABDMNAL PAIN GENERALIZED Feb-0 2-201 5 Familia Freire. [address] , [address], [place], [place], [address]. tel:[phone] Referring Provider: Tani Barbosa, [address], [place], [address] . tel:[phone] [facility] [address], [place], [place], [address] , tel: [phone] [facility] Sciatica of left sideGeneralize d osteoarthritis Left foot painCAD (coronary artery disease)Lumbar disc diseaseCervica l disc diseaseGlucose intolerance (pre-diabetes) Hyperlipidemia GERD (gastroesophag eal reflux disease)Jaw pain, non-TMJMenopau timothy sweatsTinea corporis Jan- 4 Familia Freire. [address] , [address], [place], [place], [address]. tel:[phone] Referring Provider: Tani Barbosa, [address], [place], [address] . tel:[phone] [facility] [address], [place], [place], [address] , tel: [phone] [facility] Backache Jan- 4 Familia Freire. [address], [address], [place], [place], [address]. tel:[phone] [facility] [address], [place], [place], [address] , tel: [phone] [facility] Low back pain Jan- 4 Familia Freire. [address] , [address], [place], [place], [address]. tel:[phone] [facility] [address], [place], [place], [address] , tel: [phone] [facility] Hyperlipidemia HypertensionGE RD (gastroesophag eal reflux disease)Osteoa rthritisGlucos e intolerance (pre-diabetes) CAD (coronary artery disease) 4 Familia Freire. [address] [facility], [address], [place], [place], [address]. tel:[phone] Referring Provider: Tani Barbosa, [address] [facility] [address], [place], [address] . tel:[phone] [employer] [facility] [address], [place], [place], [address] , tel: [phone] [facility] Hyperlipidemia Generalized osteoarthritis HypertensionGl ucose intolerance (pre-diabetes) Low back painCoronary artery atheromaFoot pain 4 Familia Freire. [address] [facility], [address], [place], [place], [address]. tel:[phone] Referring Provider: Tani Barbosa, [address] [facility] [address], [place], [address] . tel:[phone] [employer] [facility] [address], [place], [place], [address] , tel: [phone] [facility] HypertensionGE RD (gastroesophag eal reflux disease)Hyperl ipidemiaGlucos e intolerance (pre-diabetes) 4 Familia Freire. [address] [facility], [address], [place], [place], [address]. tel:[phone] Referring Provider: Tani Barbosa, [address] [facility] [address], [place], [address] . tel:[phone] [employer] [facility] [address], [place], [place], [address] , tel: [phone] [facility] History of fall/At Risk For FallingHyperte nsionHyperlipi demiaGERD (gastroesophag eal reflux disease)Sciati caGeneralized osteoarthritis Neck painHeadacheCo stochondritis 4 Familia Freire. [address] [facility], [address], [place], [place], [address]. tel:[phone] Referring Provider: Tani Barbosa, [address] [facility] [address], [place], [address] . tel:[phone] [facility] [address], [place], [place], [address] , tel: [phone] [facility] No Information 3 Familia Freire. [address] [facility], [address], [place], [place], [address]. tel:[phone] Referring Provider: Tani Barbosa, [address] [facility] [address], [place], [address] . tel:[phone] [facility] [address], [place], [place], [address] , tel: [phone] [facility] IMPAIRED FASTING GLUCOSEHyperca lcemiaOther and unspecified hyperlipidemia 3 Familia Freire. [address] [facility], [address], [place], [place], [address]. tel:[phone] Referring Provider: Tani Barbosa, [address] [facility] [address], [place], [address] . tel:[phone] [facility] [address], [place], [place], [address] , tel: [phone] [facility] Hyperlipidemia IMPAIRED FASTING GLUCOSEHyperca lcemia 3 Familia Freire. [address] [facility], [address], [place], [place], [address]. tel:[phone] [facility] [address], [place], [place], [address] , tel: [phone] [facility] SciaticaGenera lized osteoarthritis Cervical radiculopathyG ERD (gastroesophag eal reflux disease)Hyperl ipidemiaHypert ension 3 Familia Freire. [address] [facility], [address], [place], [place], [address]. tel:[phone] Referring Provider: Tani Barbosa, [address] [facility] [address], [place], [address] . tel:[phone] [facility] [address], [place], [place], [address] , tel: [phone] [facility] Cervical radiculopathy 2 Familia Freire. [address] [facility], [address], [place], [place], [address]. tel:[phone] Referring Provider: Tani Barbosa, [address] [facility] [address], [place], [address] . tel:[phone] [facility] [address], [place], [place], [address] , tel: [phone] [facility] HypertensionHy perlipidemiaCo ronary artery atheromaLow back painScoliosisG ERD (gastroesophag eal reflux disease)Other abnormal glucose 2 Familia Freire. [address] [facility], [address], [place], [place], [address]. tel:[phone] Referring Provider: Tani Barbosa, [address] [facility] [address], [place], [address] . tel:[phone] [facility] [address], [place], [place], [address] , tel:[phone] [facility] GERD (gastroesophag eal reflux disease)Left foot painHyperlipid emiaHypertensi onOther and unspecified disc disorder of lumbar region 2 Familia Freire. [address] [facility], [address], [place], [place], [address]. tel:[phone] Referring Provider: Tani Barbosa, [address] [facility] [address], [place], [address] . tel:[phone] [facility] [address] [address], [place], [place], [address] , tel: [phone] [facility] Impacted cerumenNeuralg ia, neuritis, and radiculitis, unspecified 2 Familia Freire. [address] [facility], [address], [place], [place], [address]. tel:[phone] Referring Provider: Tani Barbosa, [address] [facility] [address], [place], [address] . tel:[phone] [facility] [address], [place], [place], [address] , tel: [phone] [facility] ConstipationOs teoarthrosis, generalized, involving multiple sitesLumbosacr al spondylosis without myelopathyAnxi ety state, unspecifiedSci atica 1 Familia Freire. [address] [facility], [address], [place], [place], [address]. tel:[phone] Referring Provider: Tani Barbosa, [address] [facility] [address], [place], [address] . tel:[phone] [facility] [address], [place], [place], [address] , tel: [phone] [facility] No Information 1 Familia Freire. [address] [facility], [address], [place], [place], [address]. tel:[phone] Referring Provider: Tani Barbosa, [address] [facility] [address], [place], [address] . tel:[phone] [facility] [address], [place], [place], [address] , tel: [phone] [facility] HYPERLIPIDEMIA NEC/NOSHYPERTE NSION NOS 1 Familia Freire. [address] [facility], [address], [place], [place], [address]. tel:[phone] [place] [address], [address], [place], [place], [address] , [place] tel:[phone] [facility] GENERAL OSTEOARTHROSIS ESOPHAGEAL REFLUX June-0 6-201 1 Trame Gobles. [address] [facility], [address], [place], [place], [address]. tel:[phone] [facility], [address], [place], [place], [address] , [place] tel: [phone] [facility] LUMBOSACRAL SPONDYLOSISFAM NICO HX-BREAST MALIG Nov-0 3-201 0 Barbosa Tani. [address] [facility], [address], [place], [place], [address]. tel:[phone] [place] [address], [address], [place], [place], [address] , tel: [phone] [facility] MYALGIA AND MYOSITIS NOS 5-201 0 Barbosa Tani. [address] [facility], [address], [place], [place], [address]. tel:[phone] [facility], [address], [place], [place], [address] , [place] tel: [phone] [facility] LUMBAGO June-2 5-201 0 Barbosa Tani. [address] [facility], [address], [place], [place], [address]. tel:[phone] [facility], [address], [place], [place], [address] , [place] tel:[phone] [facility] GENERAL OSTEOARTHROSIS BACKACHE NOS 7-201 0 Barbosa Tani. [address] [facility] [address], [address], [place], [place], [address]. tel:[phone] [facility], [address], [place], [place], [address] , [place] tel:[phone] [facility] AORTIC ATHEROSCLEROSI SCHR ISCHEMIC HRT DIS NOS 8-200 9 Barbosa Tani. [address] [facility], [address], [place], [place], [address]. tel:[phone] [facility], [address], [place], [place], [address] , tel: [phone] [facility] CHEST PAIN NOSIRRITABLE BOWEL SYNDROME 9 [facility]. [address] [facility], [address], [place], [place], [address]. tel:[phone] [facility], [address], [place], [place], [address] , [place] tel: [phone] [facility] VACCIN FOR INFLUENZA 9 Barbosa Tani. [address] [facility], [address], [place], [place], [address]. tel:[phone] [place] [address], [address], [place], [place], [address] , tel: [phone] [facility] IMPAIRED FASTING GLUCOSE 9 Barbosa Tani. [address] [facility], [address], [place], [place], [address]. tel:[phone] [place] [address], [address], [place], [place], [address] , [place] tel: [phone] [facility] LONG-TERM USE MEDS NECDVRTCLI COLON W/O HMRHG 9 [facility]. [address] [facility], [address], [place], [address]. tel:[phone] [place] [address], [address], [place], [place], [address] , [place] tel: [phone] [facility] No Information 9 Barbosa Tani. [address] [facility], [address], [place], [place], [address]. tel:[phone] [place] [address], [address], [place], [place], [address] , tel: [phone] [facility] COUGH 200 9 Barbosa Tani. [address] [facility], [address], [place], [place], [address]. tel:[phone] [facility], [address], [place], [place], [address] , [place] tel: [phone] [facility] ABDMNAL PAIN GENERALIZED 0 9 Trame Jon. [address] [facility], [address], [place], [place], [address]. tel:[phone] [facility], [address], [place], [place], [address] , [place] tel:[phone] [facility] DISC DIS NEC/NOS-LUMBAR TMJ SOUNDS OPN/CLOSE JAW 8 Barbosa Tani. [address] [facility], [address], [place], [place], [address]. tel:[phone] [facility], [address], [place], [place], [address] , [place] tel: [phone] [facility] PLANTAR FIBROMATOSISMA LAISE AND FATIGUE NEC 8 Trame Jon. [address] [facility], [address], [place], [place], [address]. tel:[phone] [facility], [address], [place], [place], [address] , [place] tel: [phone] [facility] IMPACTED CERUMENFASCIIT IS NOSCHR KIDNEY DIS STAGE IIIBEN HY KID W CR KID I-IV 8 Barbosa Tani. [address] [facility], [address], [place], [place], [address]. tel:[phone] [facility], [address], [place], [place], [address] , [place] tel: [phone] [facility] CHR SEROUS OM SIMP/NOSAC SEROUS OTITIS MEDIAORGANIC INSOMNIA NOS 8200 8 Barbosa Tani. [address] [facility], [address], [place], [place], [address]. tel:[phone] [facility], [address], [place], [place], [address] , [place] tel:[phone] [facility] TIETZE'S DISEASECELLULI TIS, TOE NOS Nov-2 4-200 7 Barbosa Tani. [address] [facility], [address], [place], [place], [address]. tel:[phone] [facility], [address], [place], [place], [address] , [place] tel: [phone] [facility] CATARACT NOSRECUR UNILAT INGUIN RADHA Aguila-2 0-200 7 Barbosa Tani. [address] [facility], [address], [place], [place], [address]. tel:[phone] [facility], [address], [place], [place], [address] , [place] tel: [phone] [facility] BLISTER FOOT & TOE-INFEC Fe-0 5-200 7 Barbosa Tani. [address] [facility], [address], [place], [place], [address]. tel:[phone] [facility], [address], [place], [place], [address] , [place] tel: [phone] [facility] SCREEN MAL NEOP-RECTUM Sep-2 3-200 6 Barbosa Tani. [address] [facility], [address], [place], [place], [address]. tel:[phone] [facility], [address], [place], [place], [address] , [place] tel: [phone] [facility] DEPRESSIVE DISORDER NEC Sep-1 0-200 6 Barbosa Tani. [address] [facility], [address], [place], [place], [address]. tel:[phone] [facility], [address], [place], [place], [address] , [place] tel:[phone] [facility] TMJ DISORDERS NOSGLOSSODYNIA Fe- 6-200 6 Barbosa Tani. [address] [facility], [address], [place], [place], [address]. tel:[phone] [facility], [address], [place], [place], [address] , [place] tel:[phone] [facility] OLECRANON BURSITISMULTIP LE CONTUSIONS NECFALL FROM SLIPPING NECACCIDENT IN HOME 3-200 5 Barbosa Tani. [address] [facility] [address], [address], [place], [place], [address]. tel:[phone] [facility], [address], [place], [place], [address] , [place] tel:[phone] [facility] EDEMA 3-200 5 Barbosa Tani. [address] [facility] [address], [address], [place], [place], [address]. tel:[phone] [facility], [address], [place], [place], [address] , [place] tel:[phone] [facility] PAIN IN LIMB 3200 5 Trame Gobles. [address] [facility] [address], [address], [place], [place], [address]. tel:[phone] [facility], [address], [place], [place], [address] , [place] tel:[phone] [facility] ABN BLOOD CHEMISTRY NEC 3-200 4 Barbosa Tani. [address] [facility] [address], [address], [place], [place], [address]. tel:[phone] [facility], [address], [place], [place], [address] , [place] tel:[phone] [facility] VACCINATION FOR TD-DT 5200 4 Barbosa Tani. [address] [facility] [address], [address], [place], [place], [address]. tel:[phone] [facility], [address], [place], [place], [address] , [place] tel:[phone] [facility] ANXIETY STATE NOS 7-200 4 Barbosa Tani. [address] [facility] [address], [address], [place], [place], [address]. tel:[phone] [facility], [address], [place], [place], [address] , tel: [phone] [facility] IDIO PERIPH NEURPTHY NEC 0-200 4 Barbosa Tani. [address] , [address], [place], [place], [address]. tel:[phone] [facility], [address], [place], [place], [address] , tel: [phone] [facility] HORMONE REPLACE POSTMENO 7-200 2 Conversion Doctor. [address] [facility], [place], [address], . [facility], [address], [place], [place], [address] , tel: [phone] [facility] FAM HX-DIABETES MELLITUSSKIN SENSATION DISTURBHAIR DISEASES NEC 3-200 1 Barbosanolan Freire. [address] , [address], [place], [place], [address]. tel:[phone] [facility], [address], [place], [place], [address] , tel: [phone] [facility] CONSTIPATION 0-200 0 Trame Gobles. [address] , [address], [place], [place], [address]. tel:[phone] Family History Family Member Type Diagnosis Age At Onset Family h/o Problem (finding) FAMILY HISTORY BREAST C ANCER Problem (finding) Family history of coronary arteriosclerosis Problem (finding) Family history of rheum atoid arthritis Problem (finding) Family history of peria rteritis nodosa Sister Problem (finding) malignant neop lasm of breast in first degree relative 62 Problem (finding) Myocardial infarction Brother Problem (finding) prostate cancer Family h/o Problem (finding) DIABETES MELLITUS Father Problem (finding) sudden Immunizations Vaccine Date Status Comments Fluzone High-Dose, high dose , preservative free administered Source: Other Regist katina SHINGRIX (Zoster vaccine recombinant, adjuvanted) administered Note: Jessee ; Source: Other Provider Fluzone High-Dose, high dose , preservative free administered Note: Malick Soria urce: Other Provider SHINGRIX (Zoster vaccine recombinant, adjuvanted) administered Note: Yuli Thomas ; Source: Other Provider Fluzone High-Dose , high dose, preservative free administered Source: New Immunization Record influenza, injectable, quadrivalent, (3 years or older) administered Source: New Immuniza tion Record Pneumococcal conjugate PCV 13 administere d Source: New Immunization Record influenza, injectable, quadrivalent, (3 years or older) administered Source: Other Provid er Pneumococcal polysaccharide PPV23 administered Source: New Immuniza tion Record Influenza, injectable, quadrivalent, preservative free, 3 yrs or older administered Source: New Immuniz ation Record Fluzone administered Source: New Imm unization Record Fluzone administered Note: [facility]# [id number] ; Source: New Immunization Record Fluzone administered Source: New Imm unization Record Zoster administered Source: Other P rovider Payers Payer name Insurance type Covered alliance party ID Authoriza tion(s) [place] [id number] [place] [id number] [place] [id number] [place] [id number] [place] [id number] [place] [id number] [place] [id number] [place] [id number] [place] [id number] [place] [id number] [place] [id number] [place] [id number] Social History Type Description Quantity Date Captured Comments Sex Female Smoking Status No Information Chief Complaint And Reason For Visit No Information Reason For Referral Reason For Referral No Information Plan Of Treatment Date Type Action Status Referral Ordered: XR cervical spine, 2 views ordered Referral Referred To: [facility] [address] [place], [id number] Ordered: Chest x-ray, PA and lateral ordered History Of Present Illness Encounter Date Complaint History Of Prese nt Illness Annual Wellness Visit Here for a nnual wellness visit.Patient would like to talk to ou about her back, left side of her head. States she's having pain in it. the pain seems to be coming from the neck and coming around to the frong. the pain is new within the last couple months. she is taking celebrex once per day, 200 mg. no changes in behavior that could or should result in neck pain. The pain is described as 'shooting.' she has constant discomfort and occasional pain. no pounding headache. no visual changes. she had a trauma resulting in chronic left maxillary pain. She's worried about the symptom and what it might be. it is owrse with movement of neck and head. Medicare preventive A Health Ris k Assessment has been performed and reviewed. The patient has not felt depressed and has had interest and pleasure doing things recently. Functional Status: No impairment (Functional status has changed) and Assessment method used is clinical history on 03/29/2019. Cognitive Status: Minimal cognitive impairment (Cognitive status has changed) and method used is MCI on 03/29/2019. The ''Up and Go'' test took less than 30 seconds and the patient does not need help with activities of daily living. The patient has fallen 1 times in the last year. The fall(s) resulted in injury. Patient's activity level is moderate. Patient never exercises. The patient has smoke detectors in the home. Patient reports using a seatbelt in vehicles. left leg pain is activity limiting. slipped on ice cubes in the kitchen Patient reports a regular diet. Patient does not take calcium. Patient reports taking Vitamin D. Patient does not take a multivitamin. Patient does not take folic acid. Relevant history is negative for tobacco use. Patient is a former alcohol user. ER Follow Up Here for a priyao w up from [facility] ER on 09/30/18 for a scalp hematoma. She was cooking and doing housework. the freezer malfunctioned and dumped ice all over the floor. she fel and hit the back of her head. her sister noticed a lot of bleeding so urged patient to go to ER. A hematoma was found. cough she's had a coug h productive of white mucus for a few months. her had pulmonary fibrosis. she is having some shortness of breath with exertion. no wheezing. no sinus congestion. No significant cigarette smoking. GERD well-controlled with nexium. no fevers, chills, or night sweats. Chronic Conditions *See Chronic Conditions HPI 4 month follow up Patient here f or a four month follow up. States she's still having pain in her face. we discussed treatment for nerve pain in face. she does not want more meds for this right now.has figueroa feeling excessively tired for several months. not sleepiness. feels worn out. 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 she is still active at home. she sleeps OK at night. does not get winded easily. yesterday she moved all of her outdoor furniture, hosed it down, cleaned it. she's very active around her house. on a typical day she would sit in recliner starting around 4-5 pm. Functional Status Date Functional Assessmen t No Information Instructions Date Instruction Additional Infor mation x- ray of c spine si nce there are tender spinous processes.continue biofreezewe discussed physical therapy and you declined. Related to Neck pain Disease process You have a chronic c ough without any clear explanation -- therefore we will obtain a chest x-ray. Related to Chronic cough healing well Related to Hemat carol of scalp, subsequent encounter I advised a donut-shaped cushion . Related to Coccydynia Disease process continue with atorvastatin. 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 I think the in-office reading is accurate and I don't recommend any changes to the blood pressure medicine. Related to Essential (primary) hypertension Disease process Disease process Assessments Type Assessment Date No Information Patient Care Teams Name Effective Dates (start - stop) Status Members No Information
--- OUTSIDE RECORDS SUMMARY | 2024-11-16 08:59 | XMS_ITS | Patient Health Record ---
Author Organization [facility] Address [address] [place], [place] [id number] Care Team Providers Care Pilot Submersible Name Role Phone PRAKASH GILL Unavailable [phone] Tani Barbosa Unavailable Unavailable Reason For Referral No Information Medications Medication SIG (Take, Route, Frequency, Duration) Notes Start Date End Date Status Metoprolol Tartrate 100 MG Oral Tablet ORAL metoprolol tartrate 100 MG Oral TabletOriginal Medicationmetoprolol tartrate 100 MG Oral Tablet *Reorder from [employer] for eRx and Interaction Alerts* 11/11/2016 Active LORazepam 1 MG Oral Tablet ORAL lorazepam 1 MG Oral TabletOriginal Medicationlorazepam 1 MG Oral Tablet *Reorder from [facility] for eRx and Interaction Alerts* 11/11/2016 Active thioctic acid 100 MG Oral Capsule ORAL thioctic acid 100 MG Oral CapsuleOriginal Medicationthioctic acid 100 MG Oral Capsule *Reorder from [employer] for eRx and Interaction Alerts* 11/11/2016 Active pyridoxine hydrochloride 25 MG Oral Tablet ORAL pyridoxine hydrochloride 25 MG Oral TabletOriginal Medicationpyridoxine hydrochloride 25 MG Oral Tablet *Reorder from [employer] for eRx and Interaction Alerts* 11/11/2016 Active folic acid 1 MG / vitamin B12 0.5 MG Oral Tablet ORAL folic acid 1 MG / vitamin B12 0.5 MG Oral TabletOriginal Medicationfolic acid 1 MG / vitamin B12 0.5 MG Oral Tablet *Reorder from [employer] for eRx and Interaction Alerts* 11/11/2016 Active esomeprazole 20 MG Delayed Release Oral Capsule [Nexium] ORAL esomeprazole 20 MG Delayed Release Oral Capsule [Nexium]Original Medicationesomeprazole 20 MG Delayed Release Oral Capsule [Nexium] *[facility] and Interaction Alerts* 11/11/2016 Active atorvastatin 10 MG Oral Tablet ORAL atorvastatin 10 MG Oral TabletOriginal Medicationatorvastatin 10 MG Oral Tablet *Reorder from [facility] for eRx and Interaction Alerts* 11/11/2016 Active Gabapentin 100 MG Oral Capsule ORAL gabapentin 100 MG Oral CapsuleOriginal Medicationgabapentin 100 MG Oral Capsule *Reorder from [facility] for eRx and Interaction Alerts* 11/11/2016 Active Lisinopril 10 MG Oral Tablet ORAL lisinopril 10 MG Oral TabletOriginal Medicationlisinopril 10 MG Oral Tablet *Reorder from [facility] for eRx and Interaction Alerts* 11/11/2016 Active Plan Of Treatment No Information Insurance Providers Payer Name Payer Address Payer Phone Subscriber Number Group Number Insured Name Patient Relationship to Insured Coverage Start Date Coverage End Date Medicare Part B [place] [address] [place] [address] [id number] TJ ROMERO Self - patient is the insured [facility] ([facility]) ATTN CLAIMS [address] [place] [address] [id number] TJ ROMERO Self - patient is the insured
[2024-11-16 09:10] LABS: Hematocrit 37.7 % (35.0-42.0); Hemoglobin 12.0 g/dL (11.7-13.8); Immature Granulocyte Percent A 0.5 % (0.0-0.0); Lymphocytes Absolute Auto 2.01 K/mm3 (1.10-4.50); Mean Corpuscular HGB Conc 31.8 g/dL (32-36); Mean Corpuscular Hemoglobin 30.8 pg (27.0-31.0); Mean Corpuscular Volume 96.9 fL (78.0-102.0); Nucleated Red Blood Cells Absolute Auto 0.00 K/mm3 (0.00-0.00); Nucleated Red Blood Cells Perc 0.0 % (0-0.0); Platelet Count Result 250 K/mm3 (150-420); Red Blood Count 3.89 M/mm3 (4.20-5.40); White Blood Count 7.6 K/mm3 (4.8-10.8)
[2024-11-16 09:20] LABS: Hemoglobin A1C 5.7 % (<5.7)
[2024-11-16 09:54] LABS: Alanine Aminotransferase 13 U/L (6-35); Albumin Level 3.9 g/dL (3.5-5.1); Alkaline Phosphatase 59 U/L (38-126); Anion Gap 9 mmol/L (4-12); Aspartate Amino Transferase 21 U/L (14-36); Bilirubin,Total 0.6 mg/dL (0.2-1.3); Blood Urea Nitrogen 17 mg/dL (7-17); Calcium 10.3 mg/dL (8.4-10.2); Carbon Dioxide 22 mmol/L (22-30); Chloride 110 mmol/L (98-107); Cholesterol 302 mg/dL (0-200); Creatine Kinase 51 U/L (30-135); Estimated Glomerular Filt Rate 37; Glucose 100 mg/dL (65-110); HDL Direct 60 mg/dL; Iron 122 ug/dL (37-170); Osmolality Calculated 293 mOsm/kg (285-295); Potassium 4.8 mmol/L (3.4-5.0); Sodium 141 mmol/L (137-145); Total Protein 6.6 g/dL (6.3-8.2); Triglycerides 245 mg/dL (<150)
[2024-11-16 10:10] LABS: Free T4 Free Thyroxine 1.44 ng/dL (0.78-2.19)
[2024-11-16 10:23] LABS: Thyroid Stimulating Hormone 1.420 uIU/mL (0.465-4.680)
[2024-11-16 10:27] LABS: Ferritin 57.70 ng/mL (11.1-264)
[2024-11-16 10:44] LABS: Vitamin B12 287.0 pg/mL (239-931)
[2024-11-16 12:01] LABS: Add Urine Microscopic? NO; Appearance Urine Clear (Clear); Glucose Urine UA Negative (Negative); Leukocyte Esterase Ur Negative (Negative); Nitrate Urine Negative (Negative); Specific Grav Ur 1.010 (1.010-1.020)
== END 2024-11-16 08:41 | disposition home or self-care (01) ==
PROVIDERS: PCP Internal Medicine; Visit Provider Internal Medicine
DX: N39.0 Urinary tract infection, site not specified (principal); I12.9 Hypertensive chronic kidney disease with stage 1 through stage 4 chronic kidney disease, or unspecified chronic kidney disease; N18.2 Chronic kidney disease, stage 2 (mild); E53.8 Deficiency of other specified B group vitamins; R53.82 Chronic fatigue, unspecified; M81.0 Age-related osteoporosis without current pathological fracture; R73.01 Impaired fasting glucose; E78.2 Mixed hyperlipidemia
CPT/HCPCS: 36415; 80053; 80061; 81003; 82306; 82550; 82607; 82728; 83036; 83540; 84439; 84443; 85025; 87086

== ENCOUNTER 2025-02-07 09:33 | Outpatient (CLI) | payer MEDICARE, SELFPAY ==
[2025-02-07 10:16] LABS: Alanine Aminotransferase 26 U/L (6-35); Albumin Level 4.1 g/dL (3.5-5.1); Alkaline Phosphatase 80 U/L (38-126); Anion Gap 8 mmol/L (4-12); Aspartate Amino Transferase 25 U/L (14-36); Bilirubin,Total 0.7 mg/dL (0.2-1.3); Blood Urea Nitrogen 13 mg/dL (7-17); Calcium 9.8 mg/dL (8.4-10.2); Carbon Dioxide 21 mmol/L (22-30); Chloride 114 mmol/L (98-107); Cholesterol 175 mg/dL (0-200); Creatine Kinase 97 U/L (30-135); Estimated Glomerular Filt Rate 37; Glucose 101 mg/dL (65-110); HDL Direct 79 mg/dL; Osmolality Calculated 296 mOsm/kg (285-295); Potassium 4.4 mmol/L (3.4-5.0); Sodium 143 mmol/L (137-145); Total Protein 6.3 g/dL (6.3-8.2); Triglycerides 156 mg/dL (<150)
--- OUTSIDE RECORDS SUMMARY | 2025-02-07 10:40 | XMS_ITS | Encounter Summary ---
Author Organization [facility] Address [address] [place] [address] Care Team Providers Care Aoc Director Combat Plans Officer Name Role Phone Clarice Cazares MD Primary Care Provider [phone] Reason for Referral * Surgical (Routine) - Closed Specialty Diagnoses / Procedures Referred By Contac t Referred To Contact Procedures Case request operating room: BLOCK MEDIAL BRANCH CERVICAL [id number] Alyssia Brown MD [facility] [address] [place] [address] Phone: tel: fax: Referral ID Status Reason Start Date Expiration Date Visits Re quested Visits Authorized [id number] Closed 09/26/2020 10/27/2021 1 1 * Surgical (Routine) - Closed Specialty Diagnoses / Procedures Referred By Contac t Referred To Contact Procedures Case request operating room: INJECTION EPIDURAL STEROID CERVICAL [id number] Carla Infante NP [address] [facility] [address] [place] [address] Phone: tel: [phone] fax: Referral ID Status Reason Start Date Expiration Date Visits Re quested Visits Authorized [id number] Closed 06/06/2020 07/06/2021 1 1 Encounter Details Date Type Department Care Team (Late st Contact Info) Description 06/06/2020 Prep for Procedure [facility] [place] [address] [phone] Carla Infante NP [address] [facility] [address] [place] [phone] [phone] (Work) Social History Tobacco Use Types Packs/Day Years [...] 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
--- OUTSIDE RECORDS SUMMARY | 2025-02-07 10:40 | XMS_ITS | Clinical Summary ---
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 Not on f ile Not on file [...] series) 02/02/2012 COVID-19 Vaccine ( - season) 2024 Influenza Adult (#1) 2024 01/10/2019, 12/10/2017, 11/12/2016, Additional history exists Pneumococcal Vaccine: 50+ Years Completed 02/22/2015, 02/04/2014 Zoster Vaccines Completed 12/10/2017, 09/18, 10/03/2017, Additional history exists Hepatitis A Vaccines Aged Out No long er eligible based on patient's age to complete this topic Meningococcal B Vaccine Aged Out No l onger eligible based on patient's age to complete this topic Meningococcal Vaccine Aged Out No fidencio christ eligible based on patient's age to complete this topic RSV Immunizations Under 20 Months Aged Out No longer eligible based on patient's age to complete this topic Insurance [facility] MEDICARE [facility] Care Teams Family Practice Medical Doctor Relationship Specialty Start Date End Date Clarice Cazares MD [address] [place] [id number] PCP - General INTERNAL MEDICINE 08/17/19
--- OUTSIDE RECORDS SUMMARY | 2025-02-07 10:40 | XMS_ITS | Patient Health Record ---
Author Organization [facility] Address [address] [place], [place] [id number] Care Team Providers Care Gasfitter Name Role Phone PRAKASH GILL Unavailable [phone] Tani Barbosa Unavailable Unavailable Reason For Referral No Information Medications Medication SIG (Take, Route, Frequency, Duration) Notes Start Date End Date Status Metoprolol Tartrate 100 MG Oral Tablet ORAL metoprolol tartrate 100 MG Oral TabletOriginal Medicationmetoprolol tartrate 100 MG Oral Tablet *Reorder from [facility] for eRx and Interaction Alerts* 11/11/2016 Active LORazepam 1 MG Oral Tablet ORAL lorazepam 1 MG Oral TabletOriginal Medicationlorazepam 1 MG Oral Tablet *Reorder from [facility] for eRx and Interaction Alerts* 11/11/2016 Active thioctic acid 100 MG Oral Capsule ORAL thioctic acid 100 MG Oral CapsuleOriginal Medicationthioctic acid 100 MG Oral Capsule *Reorder from [facility] for eRx and Interaction Alerts* 11/11/2016 Active pyridoxine hydrochloride 25 MG Oral Tablet ORAL pyridoxine hydrochloride 25 MG Oral TabletOriginal Medicationpyridoxine hydrochloride 25 MG Oral Tablet *Reorder from [facility] for eRx and Interaction Alerts* 11/11/2016 Active folic acid 1 MG / vitamin B12 0.5 MG Oral Tablet ORAL folic acid 1 MG / vitamin B12 0.5 MG Oral TabletOriginal Medicationfolic acid 1 MG / vitamin B12 0.5 MG Oral Tablet *Reorder from [facility] for eRx and Interaction Alerts* 11/11/2016 Active esomeprazole 20 MG Delayed Release Oral Capsule [Nexium] ORAL esomeprazole 20 MG Delayed Release Oral Capsule [Nexium]Original Medicationesomeprazole 20 MG Delayed Release Oral Capsule [Nexium] *Reorder from [facility] for eRx and Interaction Alerts* 11/11/2016 Active atorvastatin 10 MG Oral Tablet ORAL atorvastatin 10 MG Oral TabletOriginal Medicationatorvastatin 10 MG Oral Tablet *Reorder from [facility] for eRx and Interaction Alerts* 11/11/2016 Active Gabapentin 100 MG Oral Capsule ORAL gabapentin 100 MG Oral CapsuleOriginal Medicationgabapentin 100 MG Oral Capsule *Reorder from [facility] for eRx and Interaction Alerts* 11/11/2016 Active Lisinopril 10 MG Oral Tablet ORAL lisinopril 10 MG Oral TabletOriginal Medicationlisinopril 10 MG Oral Tablet *Reorder from [facility] for eRx and Interaction Alerts* 11/11/2016 Active Social History Social History Additional Details Category Social Info Options Details Migrated Social History Migrated Social History Alcohol intake : , History of tobacco use : , Smoking Status : Never smoked Plan Of Treatment No Information Insurance Providers Payer Name Payer Address Payer Phone Subscriber Number Group Number Insured Name Patient Relationship to Insured Coverage Start Date Coverage End Date Medicare Part B [place] [address] [place] [address] [id number] TJ ROMERO Self - patient is the insured [facility] [place] ([facility]) ATTN CLAIMS [address] [place] [address] [id number] TJ ROMERO Self - patient is the insured
--- OUTSIDE RECORDS SUMMARY | 2025-02-07 10:40 | XMS_ITS | Encounter Summary ---
Author Organization [facility] Address [address] [place] [address] Care Team Providers Care Office Technology Professor Name Role Phone Clarice Cazares MD Primary Care Provider [phone] Encounter Details Date Type Department Care Team (Late st Contact Info) Description 08/24/2019 Abstract [facility] [address] [place] [address] Abstract, Doc [facility] Social History [...] documented as of this encounter Functional Status * Alcohol Use Question Answer Date of Assessment Author Status Q1: How often do you have a drink containing alcohol? Never 08/24/2019 10:04 AM CDT Annalee Courtney LPN Active documented as of this encounter Plan of [...] this encounter Results * VITAMIN B-12 (07/09/2019) Pathologist [facility] VITAMIN B12 S/P/B 1,895 07/09/2019 Clarice Cazares MD LABORATORY Final Result * CBC W/ MANUAL DIFF (OUTSIDE) (07/09/2019) [facility] WBC 7.7 RBC 3.46 HGB 10.7 HCT 32.6 MCV 942 MCH 30.9 MCHC 32.8 RDW 12.7 PLT 214 MPV 10.2 NEUTROPHILS % 69.3 LYMPHOCYTES % 19.4 MONOCYTES % 9.8 EOSINOPHILS % 1.0 BASOPHILS % 0.5 ABS. NEUTROPHILS 5,336 ABS. LYMPHOCYTES 1,494 ABS. MONOCYTES 755 ABS. EOSINOPHILS 77 ABS. BASOPHILS 39 07/09/2019 Clarice Cazares MD LABORATORY Final Result * FREE T3 (07/09/2019) Pathologist [facility] FREE T3 2.9 07/09/2019 Clarice Cazares MD LABORATORY Final Result * THYROXINE, FREE (FT4) (07/09/2019) Pathologist [facility] FREE T4 1.3 07/09/2019 Result [facility] [place] Clarice Cazares MD LABORATORY Final Result * TSH (OUTSIDE LAB) (07/09/2019) Pathologist [facility] TSH 0.78 07/09/2019 Result [facility] [place] Clarice Cazares MD LAB-OUTSIDE/ABSTRACTED Final Result * CK (CPK) (07/09/2019) Pathologist [facility] CPK 94 07/09/2019 Result [facility] Clarice Cazares MD LABORATORY Final Result * VITAMIN D, 25 OH (07/09/2019) [facility] VITAMIN D 25 HYDROXY S/P/B 39 07/09/2019 Result [facility] [place] Clarice Cazares MD LABORATORY Final Result * (ABNORMAL) CMP (ABSTRACTED LAB) (07/09/2019) [facility] SODIUM S/P/B 136 POTASSIUM S/P/B [...] Final Result * LIPID PANEL (07/09/2019) [facility] CHOLESTEROL 151 HDL 42 TRIGLYCERIDES 270 NON HDL CHOLESTEROL 109 CHOL/HDL RATIO 3.6 LDL (CALCULATED) 73 07/09/2019 Clarice Cazares MD LABORATORY Final Result documented in this encounter Visit Diagnoses Not on filedocumented in this encounter Care Teams Office Technology Professor Relationship Specialty Start Date End Date Clarice Cazares MD [address] [place] [phone] PCP - General INTERNAL MEDICINE 08/17/19 documented as of this encounter
== END 2025-02-07 09:34 | disposition home or self-care (01) ==
PROVIDERS: PCP Internal Medicine; Visit Provider Internal Medicine
DX: N18.31 Chronic kidney disease, stage 3a (principal); E78.2 Mixed hyperlipidemia
CPT/HCPCS: 36415; 80053; 80061; 82550